=== PATIENT | female | born 1945 | race Caucasian/White ===

== ENCOUNTER 2018-07-30 18:26 | Inpatient (IN) | payer MEDICARE, OTHER ==
[~2018-07-30] VITALS: Ht 172.7 cm; Wt 135.3 kg
--- NOTE | 2018-07-30 19:19 | EKG ---
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
[2018-07-30 19:26] LABS: BASO # 0.1 x10^3/uL (0.0-0.2); BASO % 1 % (0-3); EOS # 0.3 x10^3/uL (0.0-0.7); EOS % 2 % (0-3); HEMATOCRIT 45.6 % (36.0-47.0); HEMOGLOBIN 14.9 g/dL (12.0-15.5); LYMPH # 1.8 x10^3/uL (1.0-4.8); LYMPH % 12 % (24-48); MEAN CORPUSCULAR HEMOGLOBIN 29 pg (25-35); MEAN CORPUSCULAR HGB CONC 33 g/dL (31-37); MEAN CORPUSCULAR VOLUME 90 fL (79-100); MONO # 0.9 x10^3/uL (0.0-1.1); MONO % 6 % (0-9); NEUT # 11.5 x10^3uL (1.8-7.7); NEUT % 78 % (31-73); PLATELET COUNT 154 x10^3/uL (140-400); RED BLOOD COUNT 5.09 x10^6/uL (3.50-5.40); RED CELL DISTRIBUTION WIDTH 14.8 % (11.5-14.5); WHITE BLOOD COUNT 14.6 x10^3/uL (4.0-11.0)
[2018-07-30 19:28] LABS: BACTERIA,URINE MANY /HPF (0-FEW); BILIRUBIN,URINE NEG (NEG); CLARITY,URINE CLOUDY; COLOR,URINE AMBER; GLUCOSE,URINE NEG (NEG); NITRITE,URINE POS (NEG); SQUAMOUS EPITHELIAL CELL,UR MANY /LPF; UROBILINOGEN,URINE 0.2 mg/dL (0.2 mg/dL); WBC,URINE TNTC /HPF (0-4)
[2018-07-30 19:42] LABS: ALBUMIN 3.2 g/dL (3.4-5.0); ALBUMIN/GLOBULIN RATIO 0.8 (1.0-1.7); CALCIUM 9.4 mg/dL (8.5-10.1); CREATININE 1.4 mg/dL (0.6-1.0); GFR 36.8; MAGNESIUM 1.9 mg/dL (1.8-2.4); POTASSIUM 4.7 mmol/L (3.5-5.1); TOTAL BILIRUBIN 0.4 mg/dL (0.2-1.0); TOTAL PROTEIN 7.2 g/dL (6.4-8.2)
[2018-07-30] MEDS ORDERED: DOXYCYCLINE HYCLATE 100 MG TABLET PO ONE (20:15)
--- NOTE | 2018-07-30 20:45 | NUR ---
Admission Note with Justification for Admission to [facility] Patient admitted to [facility] for protective oversight for emergency stabilization of acute psychiatric crisis. Pt admitted from: Hospital ER Mode of arrival: EMS Accompanied By: Family Precipitating behaviors that initiated intake and admission: Sexualized behaviors-grabbing peoples butts, refusing cares, racial slurs toward residents and staff, smearing and throwing BM, yelling Description of failure of out patient attempts at stabilization in previous setting list behavior and medication trials: reorientation, PRN Ativan now D/C'd, Antibiotics, Behaviors and assessment findings upon admission: Calm, cooperative, appropriate Plan: Admit for protective oversight for adjustment and stabilization of medications, behaviors and mood. Intense treatment regimen including groups, medication adjustments, therapy, consistent regimen for ADL's, self care, and sleep hygiene. Daily monitoring by Inpatient staff, Psychiatry, and Medical Physician.
[2018-07-30] MEDS ORDERED: CHOL10003 PO (21:09)
[2018-07-30] MEDS ORDERED: INSU100I27 SQ ×2 (21:09)
[2018-07-30] MEDS ORDERED: LOSA25TA PO (21:09)
[2018-07-30] MEDS ORDERED: ACET325T9 PO (21:09)
[2018-07-30] MEDS ORDERED: CRAN400C PO (21:09)
[2018-07-30] MEDS ORDERED: IBUP400T18 PO (21:09)
[2018-07-30] MEDS ORDERED: MAG360OR24 PO (21:09)
[2018-07-30] MEDS ORDERED: DEXT118L3 PO (21:09)
[2018-07-30] MEDS ORDERED: LEVO50TA5 PO (21:09)
[2018-07-30] MEDS ORDERED: GABA-585 PO (21:09)
[2018-07-30] MEDS ORDERED: INSU100I17 SQ (21:09)
[2018-07-30] MEDS ORDERED: CITA40TA12 PO (21:09)
[2018-07-30] MEDS ORDERED: LACT1TAB18 PO (21:09)
[2018-07-30] MEDS ORDERED: DIPH25CA58 PO (21:09)
[2018-07-30] MEDS ORDERED: ATOR40TA PO (21:09)
[2018-07-30 21:25] VITALS: BP 125/75
[2018-07-30] MEDS ORDERED: MAG HYDROX/AL HYDROX/SIMETH 30 ML ORAL.SUSP PO PRN (22:00)
[2018-07-30] MEDS ORDERED: MAGNESIUM HYDROXIDE 2,400 MG/30 ML ORAL.SUSP. PO PRN (22:00)
[2018-07-31] MEDS ORDERED: IBUPROFEN 400 MG TABLET. PO PRN (01:30)
[2018-07-31] MEDS ORDERED: ACETAMINOPHEN 325 MG TABLET PO PRN (01:30)
[2018-07-31] MEDS ORDERED: MAG HYDROX/AL HYDROX/SIMETH 30 ML ORAL.SUSP PO PRN (01:30)
[2018-07-31] MEDS ORDERED: diphenhydrAMINE HCL 25 MG CAPSULE PO PRN (01:30)
--- NOTE | 2018-07-31 04:15 | ED.ADGEN ---
Past History Past Medical History: CVA, Diabetes, Hypothyroid, UTI, Other Past Surgical History: Hysterectomy, Other Alcohol Use: None Drug Use: None Adult General Chief Complaint Chief Complaint Encounter for medical screening exam HPI HPI Patient is a 73-year-old female [facility] patient with history of recurrent urinary tract infections prevents for a medical screening exam for psychiatric admission. Apparently, the patient at the [place] [facility] had bizarre and inappropriate behavior towards staff members and gas. Currently alert and oriented to person place and cooperative exams. Denies any medical complaint or issues at this time. No chest pain shortness of breath, abdominal pain. No fever chills, nausea vomiting or sweats. No headache, dizziness lightheadedness. No urinary frequency urgency or dysuria.] Review of Systems Review of Systems Review symptoms as per history of present illness. All other review symptoms are negative. All other systems were reviewed and found to be within normal limits, except as documented in this note. Current Medications Current Medications Current Medications Medications (Trade) Dose Ordered Sig/Eileen Start Time Stop Time Status Last Admin Dose Admin Acetaminophen (Tylenol) 325 mg PRN Q4HRS PRN 07/31/18 01:30 UNV Al Hydroxide/Mg Hydroxide (Mylanta Plus Xs) 15 ml PRN AFTMEALHC PRN 07/30/18 22:00 Diphenhydramine HCl (Benadryl) 25 mg PRN TID PRN 07/31/18 01:30 UNV Doxycycline Hyclate (Vibra-Tab) 100 mg 1X ONCE 07/30/18 20:15 07/30/18 20:16 DC 07/30/18 20:15 100 MG Gabapentin (Neurontin) 100 mg TID 07/31/18 09:00 UNV Ibuprofen (Motrin) 400 mg PRN Q4HRS PRN 07/31/18 01:30 UNV Influenza Virus Vaccine (Afluria Trivalent [id number] Syringe) 0.5 ml ONCE ONCE 07/31/18 09:00 07/31/18 09:01 Losartan Potassium (Cozaar) 25 mg DAILY 07/31/18 09:00 UNV Magnesium Hydroxide (Milk Of Magnesia) 2,400 mg PRN QHS PRN 07/30/18 22:00 Non-Formulary Medication (Atorvastatin Calcium (Lipitor)) 40 mg DAILY 07/31/18 09:00 UNV Non-Formulary Medication (Citalopram Hydrobromide (Celexa)) 40 mg DAILY 07/31/18 09:00 UNV Non-Formulary Medication (Cranberry ) 400 mg TID 07/31/18 09:00 UNV Non-Formulary Medication (Dextromethorphan Hbr/Chlor-Mal (Robitussin Long-Acting Liq)) 15 ml PRN Q6HRS 07/31/18 01:30 UNV Non-Formulary Medication (Insulin Aspart (Novolog Flexpen)) 15 unit TIDAC 07/31/18 07:30 UNV Non-Formulary Medication (Insulin Detemir (Levemir Flextouch)) 55 unit QHS 07/31/18 21:00 UNV Non-Formulary Medication (Lactobacillus Acidophilus (Acidophilus)) 1 each QID 07/31/18 09:00 UNV Non-Formulary Medication (Levothyroxine Sodium ) 50 mcg DAILYAC 07/31/18 07:30 UNV Non-Formulary Medication (Mag Hydrox/Al Hydrox/Simeth (Alum-Mag Hydroxide-Simeth Liq)) 30 ml PRN Q2HR PRN 07/31/18 01:30 UNV Vitamin D (Vitamin D3) 1,000 unit DAILY 07/31/18 09:00 UNV Allergies Allergies Allergies Coded Allergies Type Severity Reaction Last Updated Verified Penicillins Allergy Unknown 07/30/18 Yes amoxicillin Allergy Unknown 07/30/18 Yes clarithromycin Allergy Unknown 07/30/18 Yes clavulanic acid Allergy Unknown 07/30/18 Yes erythromycin base Allergy Unknown 07/30/18 Yes ketorolac Allergy Unknown 07/30/18 Yes Physical Exam Physical Exam Constitutional: Well developed, well nourished, no acute distress, non-toxic appearance. [] HENT: Normocephalic, atraumatic, bilateral external ears normal, oropharynx moist, no oral exudates, nose normal. [] Eyes: PERRLA, EOMI, conjunctiva normal, no discharge. [] Neck: Normal range of motion, no tenderness, supple, no stridor. [] Cardiovascular:Heart rate regular rhythm, no murmur [] Lungs & Thorax: Bilateral breath sounds clear to auscultation [] Abdomen: Bowel sounds normal, soft, no tenderness, masses. [] Skin: Warm, dry, no erythema, no rash. [] Back: No tenderness, no CVA tenderness. [] Extremities: No tenderness, no cyanosis, no clubbing, ROM intact, no edema. [] Neurologic: Alert and oriented X 2, normal motor function, normal sensory function, no focal deficits noted. [] Psychologic: Affect normal, judgement normal, mood normal. [] Current Patient Data Vital Signs Vital Signs Date Time Temp Pulse Resp B/P (MAP) Pulse Ox O2 Delivery O2 Flow Rate FiO2 07/30/18 21:25 98.5 76 18 125/75 (92) 96 Room Air Lab Results Laboratory Tests Test 07/30/18 19:05 White Blood Count 14.6 x10^3/uL (4.0-11.0) H Red Blood Count 5.09 x10^6/uL (3.50-5.40) Hemoglobin 14.9 g/dL (12.0-15.5) Hematocrit 45.6 % (36.0-47.0) Mean Corpuscular Volume 90 fL (79-100) Mean Corpuscular Hemoglobin 29 pg (25-35) Mean Corpuscular Hemoglobin Concent 33 g/dL (31-37) Red Cell Distribution Width 14.8 % (11.5-14.5) H Platelet Count 154 x10^3/uL (140-400) Neutrophils (%) (Auto) 78 % (31-73) H Lymphocytes (%) (Auto) 12 % (24-48) L Monocytes (%) (Auto) 6 % (0-9) Eosinophils (%) (Auto) 2 % (0-3) Basophils (%) (Auto) 1 % (0-3) Neutrophils # (Auto) 11.5 x10^3uL (1.8-7.7) H Lymphocytes # (Auto) 1.8 x10^3/uL (1.0-4.8) Monocytes # (Auto) 0.9 x10^3/uL (0.0-1.1) Eosinophils # (Auto) 0.3 x10^3/uL (0.0-0.7) Basophils # (Auto) 0.1 x10^3/uL (0.0-0.2) Urine Collection Type Unknown Urine Color Adrienne Urine Clarity Cloudy Urine pH 5.5 Urine Specific Bascom 1.020 Urine Protein Neg (NEG-TRACE) Urine Glucose (UA) Neg mg/dL (NEG) Urine Ketones (Stick) Trace mg/dL (NEG) Urine Blood Neg (NEG) Urine Nitrite Pos (NEG) Urine Bilirubin Neg (NEG) Urine Urobilinogen Dipstick 0.2 mg/dL (0.2 mg/dL) Urine Leukocyte Esterase Mod (NEG) Urine RBC 1-2 /HPF (0-2) Urine WBC Tntc /HPF (0-4) Urine Squamous Epithelial Cells Many /LPF Urine Bacteria Many /HPF (0-FEW) Sodium Level 138 mmol/L (136-145) Potassium Level 4.7 mmol/L (3.5-5.1) Chloride Level 103 mmol/L (98-107) Carbon Dioxide Level 29 mmol/L (21-32) Anion Gap 6 (6-14) Blood Urea Nitrogen 28 mg/dL (7-20) H Creatinine 1.4 mg/dL (0.6-1.0) H Estimated GFR (Cockcroft-Gault) 36.8 BUN/Creatinine Ratio 20 (6-20) Glucose Level 162 mg/dL (70-99) H Calcium Level 9.4 mg/dL (8.5-10.1) Magnesium Level 1.9 mg/dL (1.8-2.4) Total Bilirubin 0.4 mg/dL (0.2-1.0) Aspartate Amino Transferase (AST) 16 U/L (15-37) Alanine Aminotransferase (ALT) 24 U/L (14-59) Alkaline Phosphatase 63 U/L (46-116) Total Protein 7.2 g/dL (6.4-8.2) Albumin 3.2 g/dL (3.4-5.0) L Albumin/Globulin Ratio 0.8 (1.0-1.7) L EKG EKG [] Radiology/Procedures Radiology/Procedures [] Course & Med Decision Making Course & Med Decision Making Pertinent Labs and Imaging studies reviewed. (See chart for details) [Patient is medical stable for hospital admission. First dose of antibiotics to treat urinary tract infection provided in the ED.] Final Impression Final Impression [1, for medical screening exam for psychiatric admission 2. Urinary tract infection] Dragon Disclaimer Dragon Disclaimer This electronic medical record was generated, in whole or in part, using a voice recognition dictation system. ELIOT NETTLES DO Jul 31, 2018 04:15
[2018-07-31 06:46] VITALS: BP 136/93
[2018-07-31] MEDS ORDERED: guaiFENesin DM 200MG/20MG 10 ML SYRUP PO PRN (07:30)
[2018-07-31] MEDS ORDERED: INSULIN GLARGINE 300 UNITS/3 ML INSULN.PEN. SQ SCH ×2 (08:00→14:38)
[2018-07-31] MEDS ORDERED: NON FORMULARY ITEM (Cranberry 400 MG) PO SCH (09:00)
[2018-07-31] MEDS: LEVOTHYROXINE 50 MCG TABLET PO SCH (09:11)
[2018-07-31] MEDS: INSULIN LISPRO 300 UNITS/3 ML INSULN.PEN. SQ SCH ×3 (09:12→17:20)
[2018-07-31] MEDS: CITALOPRAM 20 MG TABLET. PO SCH (09:13)
[2018-07-31] MEDS: LACTOBACILLUS RHAMNOSUS GG 1 CAPSULE. PO SCH ×2 (09:14→20:29)
[2018-07-31] MEDS: CHOLECALCIFEROL (VITAMIN D3) 1,000 UNIT TABLET PO SCH (09:14)
[2018-07-31] MEDS: GABAPENTIN 100 MG CAPSULE. PO SCH ×3 (09:14→20:30)
[2018-07-31] MEDS: LOSARTAN 25 MG TABLET. PO SCH (09:14)
[2018-07-31 13:12] LABS: THYROXINE 7.6 ug/dL (4.5-12.0)
[2018-07-31 16:10] VITALS: BP 140/85
--- NOTE | 2018-07-31 18:06 | NUR ---
Assumed care of pt @ approximately 0700. Pt was sitting up in W/C in Day Room at the time of our initial encounter. Pt oriented to self, year & location this AM. Pt pleasant, cooperative, and compliant w/meds. PT came on the unit a short time later to evaluate the pt, and by the time they evaluated her, she was only oriented to self at that time. Pt c/o headache this AM - PRN Motrin administered. Upon reevaluation, she indicated that her h/a was better, but not completely resolved. She also indicated that she was confused about why she's here, and what medications she is taking. This RN wrote out a complete list of her inpatient medications, along with the reason each med had been prescribed, and provided it to the pt. She indicated that she understood the list. She thanked this RN for providing this information to her. Dr. 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 She indicated that she has had a UTI for "about 2 years" and "they just can't get rid of it." Dr. Gonzalez advised her that we will take good care of her. After his visit, the pt asked to lay down. This RN and a METAL FINISH INSPECTOR changed the pt's brief and assisted her (max assist) into bed. After laying down for a while, she was assisted up to the Dining Room, and ate 100% of her dinner. Pt currently sitting up in her W/C in the Day Room, watching TV. No needs voiced @ this time. Will continue to monitor and assist pt in working towards her treatment and discharge goals.
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
[2018-07-31] MEDS: CIPROFLOXACIN HCL 500 MG TABLET PO SCH (20:29)
[2018-07-31] MEDS: ATORVASTATIN CALCIUM 20 MG TABLET PO SCH (20:29)
[2018-07-31] MEDS: INSULIN GLARGINE 300 UNITS/3 ML INSULN.PEN. SQ SCH (20:30)
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
--- NOTE | 2018-07-31 22:51 | NUR ---
Nursing note: Assumed care of pt in day room. She was watching the movie but stated she is confused. She took some of her meds in ice cream but wouldn't finish it because it was "too gritty". She was compliant w/assessment. Alert to self only. No c/o pain, no agitation. Gave PRN Trazodone @0593.
--- NOTE | 2018-07-31 22:54 | NUR ---
Disregard prev note-wrong patient
--- NOTE | 2018-07-31 22:55 | NUR ---
Nursing note:Assumed care of pt in her room. She was in bed but awake. She was pleasant and compliant w/meds and assessment. No c/o pain or agitation.
[2018-08-01 00:07] LABS: HEMOGLOBIN A1C 9.9 % (4.8-5.6)
[2018-08-01] MEDS: LEVOTHYROXINE 50 MCG TABLET PO SCH (06:00)
[2018-08-01 06:32] VITALS: BP 145/92
[2018-08-01] MEDS: CIPROFLOXACIN HCL 500 MG TABLET PO SCH ×2 (08:04→20:09)
[2018-08-01] MEDS: CITALOPRAM 20 MG TABLET. PO SCH (08:04)
[2018-08-01] MEDS: GABAPENTIN 100 MG CAPSULE. PO SCH ×3 (08:05→20:10)
[2018-08-01] MEDS: LOSARTAN 25 MG TABLET. PO SCH (08:05)
[2018-08-01] MEDS: LACTOBACILLUS RHAMNOSUS GG 1 CAPSULE. PO SCH ×2 (08:05→20:09)
[2018-08-01] MEDS: CHOLECALCIFEROL (VITAMIN D3) 1,000 UNIT TABLET PO SCH (08:05)
[2018-08-01] MEDS: INSULIN LISPRO 300 UNITS/3 ML INSULN.PEN. SQ SCH ×3 (08:43→17:37)
[2018-08-01] MEDS: INSULIN GLARGINE 300 UNITS/3 ML INSULN.PEN. SQ SCH ×2 (08:44→20:11)
--- NOTE | 2018-08-01 12:02 | NUR ---
Pt is calm, cooperative, and compliant. No inappropriate behavior noted. No racial slurs, no yelling, no throwing or smearing BM at this time. Pt denies those behaviors. Pt has not refused cares.
[2018-08-01 16:49] VITALS: BP 128/84
[2018-08-01] MEDS: ATORVASTATIN CALCIUM 20 MG TABLET PO SCH (20:09)
--- NOTE | 2018-08-01 23:09 | NUR ---
Nursing Note Pt pleasant calm and cooperative, in bed during assessment, asleep. Awakens to voice, and takes medications. Denies complaints.
[2018-08-02 06:30] VITALS: BP 100/60
[2018-08-02] MEDS: LEVOTHYROXINE 50 MCG TABLET PO SCH (07:06)
[2018-08-02] MEDS: INSULIN GLARGINE 300 UNITS/3 ML INSULN.PEN. SQ SCH ×2 (08:43→19:59)
[2018-08-02] MEDS: INSULIN LISPRO 300 UNITS/3 ML INSULN.PEN. SQ SCH ×3 (08:43→17:17)
[2018-08-02] MEDS: CIPROFLOXACIN HCL 500 MG TABLET PO SCH ×2 (08:44→19:57)
[2018-08-02] MEDS: CHOLECALCIFEROL (VITAMIN D3) 1,000 UNIT TABLET PO SCH (08:44)
[2018-08-02] MEDS: CITALOPRAM 20 MG TABLET. PO SCH (08:44)
[2018-08-02] MEDS: GABAPENTIN 100 MG CAPSULE. PO SCH ×3 (08:44→19:57)
[2018-08-02] MEDS: LACTOBACILLUS RHAMNOSUS GG 1 CAPSULE. PO SCH ×2 (08:44→19:56)
[2018-08-02] MEDS: LOSARTAN 25 MG TABLET. PO SCH (09:00)
--- NOTE | 2018-08-02 12:07 | NUR ---
Pt is cooperative with assessment and medication. She is cooperative, compliant, and calm. No hallucinations, delusions, agitation or aggression.
--- NOTE | 2018-08-02 13:20 | NUR ---
1020- Attempted to meet and complete Activity Therapy Assessment; However, Pt. was sleeping in the hallway and did not respond to therapist prompts. 1320- Attempted to meet and complete Activity Therapy Assessment; However, Pt.w as asleep in her room
[2018-08-02 16:37] VITALS: BP 134/74
[2018-08-02] MEDS: ATORVASTATIN CALCIUM 20 MG TABLET PO SCH (19:57)
--- NOTE | 2018-08-02 23:31 | NUR ---
Nursing Note Pt social up in day room, compliant with meds and assessment.
[2018-08-03] MEDS: LEVOTHYROXINE 50 MCG TABLET PO SCH (04:28)
[2018-08-03 05:48] VITALS: BP 112/62
[2018-08-03] MEDS: INSULIN LISPRO 300 UNITS/3 ML INSULN.PEN. SQ SCH ×3 (07:30→17:10)
[2018-08-03] MEDS: INSULIN GLARGINE 300 UNITS/3 ML INSULN.PEN. SQ SCH ×2 (09:16→19:34)
[2018-08-03] MEDS: CIPROFLOXACIN HCL 500 MG TABLET PO SCH ×2 (09:16→19:34)
[2018-08-03] MEDS: CITALOPRAM 20 MG TABLET. PO SCH (09:16)
[2018-08-03] MEDS: GABAPENTIN 100 MG CAPSULE. PO SCH ×3 (09:17→19:33)
[2018-08-03] MEDS: CHOLECALCIFEROL (VITAMIN D3) 1,000 UNIT TABLET PO SCH (09:17)
[2018-08-03] MEDS: LOSARTAN 25 MG TABLET. PO SCH (09:17)
[2018-08-03] MEDS: LACTOBACILLUS RHAMNOSUS GG 1 CAPSULE. PO SCH ×2 (09:17→19:33)
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
--- NOTE | 2018-08-03 10:51 | PDOC ---
Exam Note: Francisco Note: Please also refer to the separate dictated note~for this date of service dictated separately.~Patient seen individually. Discussed the patient with Nursing staff reviewed the chart.~Reviewed interim history and current functioning. Reviewed vital signs,~Labs/ Radiology~and current medications noted below. Continue current treatment with the changes noted in the dictated addendum note. This is a late entry for 08/02/2018 Assessment: Vital Signs: VS - Last 72 Hours, by Label Date Time Temp Pulse Resp B/P (MAP) Pulse Ox O2 Delivery O2 Flow Rate FiO2 08/03/18 09:17 68 112/62 08/03/18 05:48 97.9 68 20 112/62 (79) 94 08/02/18 16:37 97.4 65 19 134/74 (94) 97 Room Air 08/02/18 06:30 98.6 60 24 100/60 (73) 93 Room Air 08/01/18 16:49 97.2 84 20 128/84 (99) 97 08/01/18 08:05 63 145/92 08/01/18 06:32 97.3 63 16 145/92 (109) 92 Room Air 07/31/18 16:10 97.0 66 16 140/85 (103) 91 Room Air Vital Signs Date Time Temp Pulse Resp B/P (MAP) Pulse Ox O2 Delivery O2 Flow Rate FiO2 08/03/18 09:17 68 112/62 08/03/18 05:48 97.9 20 94 08/02/18 16:37 Room Air I&O Intake and Output 08/03/18 07:00 Intake Total 1800 ml Balance 1800 ml Intake Oral 1800 ml Labs: Laboratory Tests Test 08/02/18 11:51 08/02/18 17:00 08/02/18 19:26 Glucose (Fingerstick) 222 mg/dL (70-99) H 127 mg/dL (70-99) H 189 mg/dL (70-99) H Current Medications: Meds: Current Medications Doxycycline Hyclate (Vibra-Tab) 100 mg 1X ONCE PO Last administered on at 20:15; Start 07/30/18 at 20:15; Stop 07/30/18 at 20:16; Status DC Acetaminophen (Tylenol) 650 mg PRN Q6HRS PRN PO PAIN / TEMP; Start 07/30/18 at 22:00 Al Hydroxide/Mg Hydroxide (Mylanta Plus Xs) 15 ml PRN AFTMEALHC PRN PO DYSPEPSIA; Start 07/30/18 at 22:00; Status Cancel Magnesium Hydroxide (Milk Of Magnesia) 2,400 mg PRN QHS PRN PO CONSTIPATION; Start 07/30/18 at 22:00 Influenza Virus Vaccine (Adataouria Trivalent Syringe) 0.5 ml ONCE ONCE VAX IM ; Start 07/30/18 at 22:30; Stop 07/30/18 at 22:41; Status DC Influenza Virus Vaccine (Adataouria Trivalent Syringe) 0.5 ml ONCE ONCE VAX IM ; Start 07/31/18 at 09:00; Stop 07/31/18 at 09:01; Status DC Citalopram Hydrobromide (CeleXA) 40 mg DAILY PO Last administered on at 09:16; Start 07/31/18 at 09:00 Acetaminophen (Tylenol) 325 mg PRN Q4HRS PRN PO PAIN; Start 07/31/18 at 01:30 Vitamin D (Vitamin D3) 1,000 unit DAILY PO Last administered on 08/03/18at 09: 17; Start 07/31/18 at 09:00 Diphenhydramine HCl (Benadryl) 25 mg PRN TID PRN PO ALLERGIES; Start 07/31/18 at 01:30 Gabapentin (Neurontin) 100 mg TID PO Last administered on 08/03/18at 09:17; Start 07/31/18 at 09:00 Ibuprofen (Motrin) 400 mg PRN Q4HRS PRN PO PAIN Last administered on at 09:26; Start 07/31/18 at 01:30; Stop 07/31/18 at 16:11; Status DC Losartan Potassium (Cozaar) 25 mg DAILY PO Last administered on 08/03/18at 09: 17; Start 07/31/18 at 09:00 Atorvastatin Calcium (Lipitor) 40 mg HS PO Last administered on 08/02/18at 19: 57; Start 07/31/18 at 21:00 Non-Formulary Medication (Cranberry ) 400 mg TID PO ; Start 07/31/18 at 09:00; Status UNV Guaifenesin (Robitussin Dm) 15 ml PRN Q6HRS PRN PO COUGH; Start 07/31/18 at 07 :30 Insulin Human Lispro (HumaLOG) 15 units TIDAC SQ Last administered on at 11:30; Start 07/31/18 at 07:30; Stop 07/31/18 at 16:13; Status DC Insulin Glargine (Lantus) 10 units DAILY08 SQ Last administered on 07/31/18at 09:13; Start 07/31/18 at 08:00; Stop 07/31/18 at 14:38; Status DC Insulin Glargine (Lantus) 55 units QHS SQ Last administered on 08/02/18at 19:59 ; Start 07/31/18 at 21:00 Lactobacillus Rhamnosus (Culturelle) 1 cap BID PO Last administered on at 09:17; Start 07/31/18 at 09:00 Levothyroxine Sodium (Synthroid) 50 mcg DAILY07 PO Last administered on at 04:28; Start 07/31/18 at 07:00 Al Hydroxide/Mg Hydroxide (Mylanta Plus Xs) 30 ml PRN Q2HR PRN PO HEARTBURN / GAS; Start 07/31/18 at 01:30 Insulin Glargine (Lantus) 10 units DAILY08 SQ ; Start 07/31/18 at 14:38; Stop 07/31/18 at 16:13; Status DC Ciprofloxacin (Cipro) 500 mg BID PO Last administered on 08/03/18at 09:16; Start 07/31/18 at 21:00 Insulin Human Lispro (HumaLOG) 20 units TIDAC SQ Last administered on at 17:17; Start 07/31/18 at 16:30 Insulin Glargine (Lantus) 25 units DAILY08 SQ Last administered on 08/03/18at 09:16; Start 08/01/18 at 08:00 Active Scripts Active Reported Vitamin D3 (Cholecalciferol (Vitamin D3)) 1,000 Unit Tablet 1,000 Unit PO DAILY Tylenol (Acetaminophen) 325 Mg Tablet 325 Mg PO PRN Q4HRS PRN Levothyroxine Sodium 50 Mcg Tablet 50 Mcg PO DAILYAC Robitussin Long-Acting Liq (Dextromethorphan Hbr/Chlor-Mal) 118 Ml Liquid 15 Ml PO PRN Q6HRS Novolog Flexpen (Insulin Aspart) 100 Unit/1 Ml Insuln.pen 15 Unit SQ TIDAC Neurontin (Gabapentin) 100 Mg Capsule 100 Mg PO TID Alum-Mag Hydroxide-Simeth Liq (Mag Hydrox/Al Hydrox/Simeth) 360 Ml Oral.susp 30 Ml PO PRN Q2HR PRN Lipitor (Atorvastatin Calcium) 40 Mg Tablet 40 Mg PO DAILY Levemir Flextouch (Insulin Detemir) 100 Unit/1 Ml Insuln.pen 10 Unit SQ DAILY08 Levemir Flextouch (Insulin Detemir) 100 Unit/1 Ml Insuln.pen 55 Unit SQ QHS Ibuprofen 400 Mg Tablet 400 Mg PO PRN Q4HRS PRN Benadryl (Diphenhydramine Hcl) 25 Mg Capsule 25 Mg PO PRN TID PRN Cranberry 400 Mg Capsule 400 Mg PO TID Cozaar (Losartan Potassium) 25 Mg Tablet 25 Mg PO DAILY Celexa (Citalopram Hydrobromide) 40 Mg Tablet 40 Mg PO DAILY Acidophilus (Lactobacillus Acidophilus) 1 Each Tablet 1 Each PO QID I have reviewed the current psychotropics carefully including drug interactions. Risk benefit ratio favors no change other than as noted in my dictated progress note. Diagnosis: Problems: (1) Psychosis, atypical (2) Impulse control disorder (3) Mild cognitive impairment (4) Anxiety disorder ANGEL MYLES MD Aug 03, 2018 10:51
--- NOTE | 2018-08-03 14:00 | NUR ---
Psychosocial Assessment Admit Date: 07/30/18 Psychiatrist: None Medical Physician: Dr. Villeda Assessment Informants: Pt was not cooperative during assessment Sex of Patient: Female Race: Age: 73 Living Situation: lives at [facility] Plans For Return: will return once stable Legal status: DPOA Name of Legally Responsible Person: son, Himanshu Moore Contacts: Name: Himanshu Moore Family Background and Relationships Marital status: single, "I haven't had successful relationships". Marital (Cohabitation)/Sexual Orientation Issues: heterosexual Family support And their Participation in therapy: Pt son is active and helps in completion of decisions/finances. 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 History of Legal Difficulties: None Preferred Leisure Activities: "nothing" Spiritual/Uatsdin Involvement: unknown Service: none Financial Situation: "I don't know Resources: Medicare and Medicaid Financial Problems/Needs: N/A Republican Responsible for Handling Patient's Finances: Pt son Historical Data Childhood History: "it was fine" Cultural/Spiritual History Factors that may impact treatment: None History of Sexual/Physical Abuse of Neglect: No per patient History of Substance Abuse: None in the last 12 months Psychiatric History: "No" per pt Presenting Problems Presenting Problems/Criteria for admission: aggressive bx, throwing/smearing feces, saying racial slurs Patient's Current Intrinsic Strengths: vocal, support from son, positive education and work hx Patient's Current Intrinsic Weaknesses: needs physical assistance, poor physical health hx (e.g. 3 CVA's) Social Work Treatment Plan Identified Problems 1.) potential UTI 2.) aggressive behaviors 3.) poor physical health Goals for Treatment: medication and behavior modification Family Goals for Treatment: behavior modification Social work Intervention: Group therapy per week:2-5x To increase positive, calm feelings. To Increase Socialization. To Teach and Practice Effective coping skills in a social setting. Individual Therapy Per Week: As needed. Using validation to increase calm and positive feelings. To encourage self-expression. To work on grief/loss and adjustment issues. To teach and practice effective coping skills. To educate about diagnoses, team recommendations etc.. Family Support and Education: As needed. Support family grief/adjustment process. Educate about Psychiatric/Behavioral problems and treatment recommendations. Patient's Educational Needs to be addressed in Treatment: Diagnosis, Treatment plan, Medication and Discharge Planning. Initial Discharge Plan: Pt will have treatment team on to discuss behaviors, medications and ELOS Plan for communication of Psychiatric Follow up and Continuing Care Instructions to family and Care Givers: Written and verbal communication.
--- NOTE | 2018-08-03 14:31 | NUR ---
Assumed care of pt @ approx 0700. Pt was sitting up in the Dining Room for breakfast @ the time of our initial encounter. Pt oriented to self, month and location. Very pleasant and cooperative, compliant w/meds taken whole. Denies pain. Pt is currently sitting up in the Day Room with the other pts watching TV and occasionally looking out the window. She commented on how beautiful it looks outside, and she wishes she could go sit in the sunshine. No signs of hallucinations, delusions, or paranoia noted. No needs voiced @ this time. Will continue to monitor and assist pt in working towards her treatment and discharge goals.
[2018-08-03 16:14] VITALS: BP 114/74
[2018-08-03] MEDS: ATORVASTATIN CALCIUM 20 MG TABLET PO SCH (19:33)
[2018-08-03] MEDS: NYSTATIN TOPICAL POWDER 15GM BOTTLE. TP SCH (19:36)
--- NOTE | 2018-08-04 02:26 | NUR ---
Behavior Intervention Response and Plan: BIRP Note: Behavior: Assumed Care of patient, patient located in Day Room at shift change. Patient exhibited the following behavior Calm, Interactive, Able to Focus on Task. Brief assessment on rounds of vital signs, medication needs, lab studies, and pain. Treatment plan problems . Intervention: Patient assessed and the following interventions initiated safety checks 15 Minute Checks Head to toe Assessment , Cognitive Assessment , Head to toe Assessment. Response: After interactions and interventions patient responded in the following manner, Cooperative , Compliant ,Drowsy. Continue to assess behaviors and condition will continue to monitor throughout the shift as needed. Patient educated on ADL's, and hand hygiene. 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 Continue to assess patient for changes in above assessment. Monitor for medication needs, pain, and safety concerns. Hourly rounding performed to ensure safe environment.
[2018-08-04 06:14] VITALS: BP 148/82
[2018-08-04] MEDS: LEVOTHYROXINE 50 MCG TABLET PO SCH (06:15)
[2018-08-04] MEDS: INSULIN LISPRO 300 UNITS/3 ML INSULN.PEN. SQ SCH ×3 (07:59→18:26)
[2018-08-04] MEDS: LOSARTAN 25 MG TABLET. PO SCH (07:59)
[2018-08-04] MEDS: CHOLECALCIFEROL (VITAMIN D3) 1,000 UNIT TABLET PO SCH (07:59)
[2018-08-04] MEDS: CIPROFLOXACIN HCL 500 MG TABLET PO SCH (07:59)
[2018-08-04] MEDS: LACTOBACILLUS RHAMNOSUS GG 1 CAPSULE. PO SCH ×2 (07:59→19:48)
[2018-08-04] MEDS: GABAPENTIN 100 MG CAPSULE. PO SCH ×3 (07:59→19:48)
[2018-08-04] MEDS: CITALOPRAM 20 MG TABLET. PO SCH (08:00)
[2018-08-04] MEDS: NYSTATIN TOPICAL POWDER 15GM BOTTLE. TP SCH ×2 (08:04→19:52)
[2018-08-04] MEDS: INSULIN GLARGINE 300 UNITS/3 ML INSULN.PEN. SQ SCH ×2 (08:06→19:54)
[2018-08-04] MEDS: ACETAMINOPHEN 325 MG TABLET PO PRN (08:18)
--- NOTE | 2018-08-04 08:18 | NUR ---
patient reports bilateral shoulder pain. Tylenol 650mg give per PRN order and will continue to monitor.
--- NOTE | 2018-08-04 08:50 | NUR ---
[facility] social work administrator, Polina Cuellar [phone], left message for this worker requesting update on how Anel did over the weekend. Faxed update to Polina for review. On 08/03/18 Anel expressed thankfulness for the care she has been receiving and was complimentary of [facility] staff.
--- NOTE | 2018-08-04 09:53 | PN ---
DATE: 08/02/2018 This is a late entry of 08/02/2018, covers elements not covered in my initial note. Reviewed in detailed history from a psychiatric standpoint by Dr. Bauer, who covered for me over the weekend. HISTORY OF PRESENT ILLNESS: The patient is a 73-year-old female referred from [facility] by Dr. Villeda, her primary care physician on account of inappropriate sexualized behavior, grabbing people's parts, refusing cares, using racial slurs at residents and staff, yelling, smearing and throwing bowel movements around, scratching and hitting staff. She had failed outpatient psychiatric interventions. She does have UTI, and I will defer this to Dr. Gonzalez. REVIEW OF SYSTEMS: Ambulation impaired, in wheelchair. No CV, , pulmonary, eye, ENT system symptoms on review. MENTAL STATUS EXAM: The patient is oriented to herself and situation. She knew it was 07/2018 or 08/2018, unaware of the date, knew the President was President Stan, minimized much of the behaviors prompting admission. 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 Able to do two steps from serial 7's, no more. Able to spell world forward and backward, no errors. She believes she is here for a clinical study. Speech coherent, rapid at times. Abstraction fair, computation impaired, language function intact, attention span short. Mood and affect remain somewhat anxious, labile. LABORATORY DATA: Reviewed. IMPRESSION: Major neurocognitive disorder, vascular with delusion, behavioral disturbance; bipolar 1 disorder, mixed; anxiety disorder, unspecified. Rest diagnosis unchanged including hypothyroidism, status post cerebrovascular accident, urinary tract infection, hyperlipidemia, type 2 diabetes mellitus. PLAN: From a psychiatric standpoint, treat the UTI, continue current psychotropics noted in my initial note. Make further adjustments as clinically indicated. From a psychiatric standpoint, the patient is on Celexa 40 mg a day. She has been started on Cipro for UTI. We may use low dose Seroquel as an atypical antipsychotic mood stabilizer. We will make this decision in the next day or so depending on how she responds to with resolution of UTI. ANGEL MYLES MD DR: ARIANA/manjit JOB#: [id number] / [id number]
[2018-08-04 16:16] VITALS: BP 110/60
[2018-08-04] MEDS: ATORVASTATIN CALCIUM 20 MG TABLET PO SCH (19:48)
[2018-08-04] MEDS: CEFPODOXIME PROXETIL 100 MG TABLET PO SCH (19:52)
--- NOTE | 2018-08-04 21:26 | NUR ---
Behavior Intervention Response and Plan: BIRP Note: Behavior: Assumed Care of patient, patient located in Patient Room at shift change. Patient exhibited the following behavior Disorganized, Calm, Compliant. Brief assessment on rounds of vital signs, medication needs, lab studies, and pain. Treatment plan problems . Intervention: Patient assessed and the following interventions initiated safety checks 15 Minute Checks Cognitive Assessment , Head to toe Assessment , Medications. Response: After interactions and interventions patient responded in the following manner, Disorganized , Calm ,Compliant. Continue to assess behaviors and condition will continue to monitor throughout the shift as needed. Patient educated on ADL's, and hand hygiene. 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 Continue to assess patient for changes in above assessment. Monitor for medication needs, pain, and safety concerns. Hourly rounding performed to ensure safe environment.
--- NOTE | 2018-08-04 21:30 | PDOC ---
Exam Note: Francisco Note: Late entry for DOS 08/03/2018. Please also refer to the separate dictated note~ for this date of service dictated separately.~Patient seen individually. Discussed the patient with Nursing staff reviewed the chart.~Reviewed interim history and current functioning. Reviewed vital signs,~Labs/ Radiology~and current medications noted below. Continue current treatment with the changes noted in the dictated addendum note Assessment: Vital Signs: VS - Last 72 Hours, by Label Date Time Temp Pulse Resp B/P (MAP) Pulse Ox O2 Delivery O2 Flow Rate FiO2 08/04/18 16:16 97.2 60 16 110/60 (77) 92 08/04/18 07:59 67 148/82 08/04/18 06:14 96.7 67 20 148/82 (104) 95 08/03/18 16:14 98.4 73 20 114/74 (87) 93 Room Air 08/03/18 09:17 68 112/62 08/03/18 05:48 97.9 68 20 112/62 (79) 94 08/02/18 16:37 97.4 65 19 134/74 (94) 97 Room Air 08/02/18 06:30 98.6 60 24 100/60 (73) 93 Room Air Vital Signs Date Time Temp Pulse Resp B/P (MAP) Pulse Ox O2 Delivery O2 Flow Rate FiO2 08/04/18 16:16 97.2 60 16 110/60 (77) 92 08/03/18 16:14 Room Air I&O Intake and Output 08/04/18 07:00 Intake Total 720 ml Balance 720 ml Intake Oral 720 ml Labs: Laboratory Tests Test 08/04/18 07:43 08/04/18 12:04 08/04/18 16:48 08/04/18 19:37 Glucose (Fingerstick) 224 mg/dL (70-99) H 185 mg/dL (70-99) H 144 mg/dL (70-99) H 157 mg/dL (70-99) H Current Medications: Meds: Current Medications Doxycycline Hyclate (Vibra-Tab) 100 mg 1X ONCE PO Last administered on at 20:15; Start 07/30/18 at 20:15; Stop 07/30/18 at 20:16; Status DC Acetaminophen (Tylenol) 650 mg PRN Q6HRS PRN PO PAIN / TEMP Last administered on 08/04/18 08:18; Start 07/30/18 at 22:00 Al Hydroxide/Mg Hydroxide (Mylanta Plus Xs) 15 ml PRN AFTMEALHC PRN PO DYSPEPSIA; Start 07/30/18 at 22:00; Status Cancel Magnesium Hydroxide (Milk Of Magnesia) 2,400 mg PRN QHS PRN PO CONSTIPATION; Start 07/30/18 at 22:00 Influenza Virus Vaccine (Afluria Trivalent Syringe) 0.5 ml ONCE ONCE VAX IM ; Start 07/30/18 at 22:30; Stop 07/30/18 at 22:41; Status DC Influenza Virus Vaccine (Wealth Accessuria Trivalent Syringe) 0.5 ml ONCE ONCE VAX IM ; Start 07/31/18 at 09:00; Stop 07/31/18 at 09:01; Status DC Citalopram Hydrobromide (CeleXA) 40 mg DAILY PO Last administered on 08:00; Start 07/31/18 at 09:00; Stop 08/04/18 at 16:58; Status DC Acetaminophen (Tylenol) 325 mg PRN Q4HRS PRN PO PAIN; Start 07/31/18 at 01:30 Vitamin D (Vitamin D3) 1,000 unit DAILY PO Last administered on 08/04/18at 07: 59; Start 07/31/18 at 09:00 Diphenhydramine HCl (Benadryl) 25 mg PRN TID PRN PO ALLERGIES; Start 07/31/18 at 01:30 Gabapentin (Neurontin) 100 mg TID PO Last administered on 08/04/18at 19:48; Start 07/31/18 at 09:00 Ibuprofen (Motrin) 400 mg PRN Q4HRS PRN PO PAIN Last administered on 09:26; Start 07/31/18 at 01:30; Stop 07/31/18 at 16:11; Status DC Losartan Potassium (Cozaar) 25 mg DAILY PO Last administered on 08/04/18 07: 59; Start 07/31/18 at 09:00 Atorvastatin Calcium (Lipitor) 40 mg HS PO Last administered on 08/04/18at 19: 48; Start 07/31/18 at 21:00 Non-Formulary Medication (Cranberry ) 400 mg TID PO ; Start 07/31/18 at 09:00; Status UNV Guaifenesin (Robitussin Dm) 15 ml PRN Q6HRS PRN PO COUGH; Start 07/31/18 at 07 :30 Insulin Human Lispro (HumaLOG) 15 units TIDAC SQ Last administered on at 11:30; Start 07/31/18 at 07:30; Stop 07/31/18 at 16:13; Status DC Insulin Glargine (Lantus) 10 units DAILY08 SQ Last administered on 07/31/18at 09:13; Start 07/31/18 at 08:00; Stop 07/31/18 at 14:38; Status DC Insulin Glargine (Lantus) 55 units QHS SQ Last administered on 08/04/18at 19:54 ; Start 07/31/18 at 21:00 Lactobacillus Rhamnosus (Culturelle) 1 cap BID PO Last administered on at 19:48; Start 07/31/18 at 09:00 Levothyroxine Sodium (Synthroid) 50 mcg DAILY07 PO Last administered on at 06:15; Start 07/31/18 at 07:00; Stop 08/04/18 at 14:17; Status DC Al Hydroxide/Mg Hydroxide (Mylanta Plus Xs) 30 ml PRN Q2HR PRN PO HEARTBURN / GAS; Start 07/31/18 at 01:30 Insulin Glargine (Lantus) 10 units DAILY08 SQ ; Start 07/31/18 at 14:38; Stop 07/31/18 at 16:13; Status DC Ciprofloxacin (Cipro) 500 mg BID PO Last administered on 08/04/18at 07:59; Start 07/31/18 at 21:00; Stop 08/04/18 at 16:07; Status DC Insulin Human Lispro (HumaLOG) 20 units TIDAC SQ Last administered on at 12:38; Start 07/31/18 at 16:30; Stop 08/04/18 at 13:35; Status DC Insulin Glargine (Lantus) 25 units DAILY08 SQ Last administered on 08/04/18at 08:06; Start 08/01/18 at 08:00 Nystatin (Nystop) 1 dori BID TP Last administered on 08/04/18at 19:52; Start at 21:00; Stop 08/13/18 at 20:59 Insulin Human Lispro (HumaLOG) 20 units TIDWMEALS SQ ; Start 08/04/18 at 17:00 Levothyroxine Sodium (Synthroid) 50 mcg DAILY06 PO ; Start 08/05/18 at 06:00 Cefpodoxime Proxetil (Vantin) 100 mg BID PO Last administered on 08/04/18at 19: 52; Start 08/04/18 at 21:00; Stop 08/14/18 at 20:59 Sertraline HCl (Zoloft) 50 mg DAILY PO ; Start 08/05/18 at 09:00 Active Scripts Active Reported Vitamin D3 (Cholecalciferol (Vitamin D3)) 1,000 Unit Tablet 1,000 Unit PO DAILY Tylenol (Acetaminophen) 325 Mg Tablet 325 Mg PO PRN Q4HRS PRN Levothyroxine Sodium 50 Mcg Tablet 50 Mcg PO DAILYAC Robitussin Long-Acting Liq (Dextromethorphan Hbr/Chlor-Mal) 118 Ml Liquid 15 Ml PO PRN Q6HRS Novolog Flexpen (Insulin Aspart) 100 Unit/1 Ml Insuln.pen 15 Unit SQ TIDAC Neurontin (Gabapentin) 100 Mg Capsule 100 Mg PO TID Alum-Mag Hydroxide-Simeth Liq (Mag Hydrox/Al Hydrox/Simeth) 360 Ml Oral.susp 30 Ml PO PRN Q2HR PRN Lipitor (Atorvastatin Calcium) 40 Mg Tablet 40 Mg PO DAILY Levemir Flextouch (Insulin Detemir) 100 Unit/1 Ml Insuln.pen 10 Unit SQ DAILY08 Levemir Flextouch (Insulin Detemir) 100 Unit/1 Ml Insuln.pen 55 Unit SQ QHS Ibuprofen 400 Mg Tablet 400 Mg PO PRN Q4HRS PRN Benadryl (Diphenhydramine Hcl) 25 Mg Capsule 25 Mg PO PRN TID PRN Cranberry 400 Mg Capsule 400 Mg PO TID Cozaar (Losartan Potassium) 25 Mg Tablet 25 Mg PO DAILY Celexa (Citalopram Hydrobromide) 40 Mg Tablet 40 Mg PO DAILY Acidophilus (Lactobacillus Acidophilus) 1 Each Tablet 1 Each PO QID I have reviewed the current psychotropics carefully including drug interactions. Risk benefit ratio favors no change other than as noted in my dictated progress note. Diagnosis: Problems: (1) Anxiety disorder (2) Mild cognitive impairment (3) Impulse control disorder (4) Psychosis, atypical ANGEL MYLES MD Aug 04, 2018 21:30
--- NOTE | 2018-08-04 23:45 | PDOC ---
Exam Note: Francisco Note: Please also refer to the separate dictated note~for this date of service dictated separately.~Patient seen individually. Discussed the patient with Nursing staff reviewed the chart.~Reviewed interim history and current functioning. Reviewed vital signs,~Labs/ Radiology~and current medications noted below. Continue current treatment with the changes noted in the dictated addendum note Assessment: Vital Signs: Vital Signs Date Time Temp Pulse Resp B/P (MAP) Pulse Ox O2 Delivery O2 Flow Rate FiO2 08/04/18 16:16 97.2 60 16 110/60 (77) 92 08/03/18 16:14 Room Air I&O Intake and Output 08/04/18 07:00 Intake Total 720 ml Balance 720 ml Intake Oral 720 ml Labs: Laboratory Tests Test 08/04/18 07:43 08/04/18 12:04 08/04/18 16:48 08/04/18 19:37 Glucose (Fingerstick) 224 mg/dL (70-99) H 185 mg/dL (70-99) H 144 mg/dL (70-99) H 157 mg/dL (70-99) H Current Medications: Meds: Current Medications Doxycycline Hyclate (Vibra-Tab) 100 mg 1X ONCE PO Last administered on at 20:15; Start 07/30/18 at 20:15; Stop 07/30/18 at 20:16; Status DC Acetaminophen (Tylenol) 650 mg PRN Q6HRS PRN PO PAIN / TEMP Last administered on 08/04/18at 08:18; Start 07/30/18 at 22:00 Al Hydroxide/Mg Hydroxide (Mylanta Plus Xs) 15 ml PRN AFTMEALHC PRN PO DYSPEPSIA; Start 07/30/18 at 22:00; Status Cancel Magnesium Hydroxide (Milk Of Magnesia) 2,400 mg PRN QHS PRN PO CONSTIPATION; Start 07/30/18 at 22:00 Influenza Virus Vaccine (Afluria Trivalent Syringe) 0.5 ml ONCE ONCE VAX IM ; Start 07/30/18 at 22:30; Stop 07/30/18 at 22:41; Status DC Influenza Virus Vaccine (Afluria Trivalent Syringe) 0.5 ml ONCE ONCE VAX IM ; Start 07/31/18 at 09:00; Stop 07/31/18 at 09:01; Status DC Citalopram Hydrobromide (CeleXA) 40 mg DAILY PO Last administered on 08:00; Start 07/31/18 at 09:00; Stop 08/04/18 at 16:58; Status DC Acetaminophen (Tylenol) 325 mg PRN Q4HRS PRN PO PAIN; Start 07/31/18 at 01:30 Vitamin D (Vitamin D3) 1,000 unit DAILY PO Last administered on 08/04/18at 07: 59; Start 07/31/18 at 09:00 Diphenhydramine HCl (Benadryl) 25 mg PRN TID PRN PO ALLERGIES; Start 07/31/18 at 01:30 Gabapentin (Neurontin) 100 mg TID PO Last administered on 08/04/18at 19:48; Start 07/31/18 at 09:00 Ibuprofen (Motrin) 400 mg PRN Q4HRS PRN PO PAIN Last administered on 09:26; Start 07/31/18 at 01:30; Stop 07/31/18 at 16:11; Status DC Losartan Potassium (Cozaar) 25 mg DAILY PO Last administered on 08/04/18 07: 59; Start 07/31/18 at 09:00 Atorvastatin Calcium (Lipitor) 40 mg HS PO Last administered on 08/04/18at 19: 48; Start 07/31/18 at 21:00 Non-Formulary Medication (Cranberry ) 400 mg TID PO ; Start 07/31/18 at 09:00; Status UNV Guaifenesin (Robitussin Dm) 15 ml PRN Q6HRS PRN PO COUGH; Start 07/31/18 at 07 :30 Insulin Human Lispro (HumaLOG) 15 units TIDAC SQ Last administered on at 11:30; Start 07/31/18 at 07:30; Stop 07/31/18 at 16:13; Status DC Insulin Glargine (Lantus) 10 units DAILY08 SQ Last administered on 07/31/18at 09:13; Start 07/31/18 at 08:00; Stop 07/31/18 at 14:38; Status DC Insulin Glargine (Lantus) 55 units QHS SQ Last administered on 08/04/18at 19:54 ; Start 07/31/18 at 21:00 Lactobacillus Rhamnosus (Culturelle) 1 cap BID PO Last administered on at 19:48; Start 07/31/18 at 09:00 Levothyroxine Sodium (Synthroid) 50 mcg DAILY07 PO Last administered on at 06:15; Start 07/31/18 at 07:00; Stop 08/04/18 at 14:17; Status DC Al Hydroxide/Mg Hydroxide (Mylanta Plus Xs) 30 ml PRN Q2HR PRN PO HEARTBURN / GAS; Start 07/31/18 at 01:30 Insulin Glargine (Lantus) 10 units DAILY08 SQ ; Start 07/31/18 at 14:38; Stop 07/31/18 at 16:13; Status DC Ciprofloxacin (Cipro) 500 mg BID PO Last administered on 08/04/18at 07:59; Start 07/31/18 at 21:00; Stop 08/04/18 at 16:07; Status DC Insulin Human Lispro (HumaLOG) 20 units TIDAC SQ Last administered on at 12:38; Start 07/31/18 at 16:30; Stop 08/04/18 at 13:35; Status DC Insulin Glargine (Lantus) 25 units DAILY08 SQ Last administered on 08/04/18at 08:06; Start 08/01/18 at 08:00 Nystatin (Nystop) 1 dori BID TP Last administered on 08/04/18at 19:52; Start at 21:00; Stop 08/13/18 at 20:59 Insulin Human Lispro (HumaLOG) 20 units TIDWMEALS SQ ; Start 08/04/18 at 17:00 Levothyroxine Sodium (Synthroid) 50 mcg DAILY06 PO ; Start 08/05/18 at 06:00 Cefpodoxime Proxetil (Vantin) 100 mg BID PO Last administered on 08/04/18at 19: 52; Start 08/04/18 at 21:00; Stop 08/14/18 at 20:59 Sertraline HCl (Zoloft) 50 mg DAILY PO ; Start 08/05/18 at 09:00 Active Scripts Active Reported Vitamin D3 (Cholecalciferol (Vitamin D3)) 1,000 Unit Tablet 1,000 Unit PO DAILY Tylenol (Acetaminophen) 325 Mg Tablet 325 Mg PO PRN Q4HRS PRN Levothyroxine Sodium 50 Mcg Tablet 50 Mcg PO DAILYAC Robitussin Long-Acting Liq (Dextromethorphan Hbr/Chlor-Mal) 118 Ml Liquid 15 Ml PO PRN Q6HRS Novolog Flexpen (Insulin Aspart) 100 Unit/1 Ml Insuln.pen 15 Unit SQ TIDAC Neurontin (Gabapentin) 100 Mg Capsule 100 Mg PO TID Alum-Mag Hydroxide-Simeth Liq (Mag Hydrox/Al Hydrox/Simeth) 360 Ml Oral.susp 30 Ml PO PRN Q2HR PRN Lipitor (Atorvastatin Calcium) 40 Mg Tablet 40 Mg PO DAILY Levemir Flextouch (Insulin Detemir) 100 Unit/1 Ml Insuln.pen 10 Unit SQ DAILY08 Levemir Flextouch (Insulin Detemir) 100 Unit/1 Ml Insuln.pen 55 Unit SQ QHS Ibuprofen 400 Mg Tablet 400 Mg PO PRN Q4HRS PRN Benadryl (Diphenhydramine Hcl) 25 Mg Capsule 25 Mg PO PRN TID PRN Cranberry 400 Mg Capsule 400 Mg PO TID Cozaar (Losartan Potassium) 25 Mg Tablet 25 Mg PO DAILY Celexa (Citalopram Hydrobromide) 40 Mg Tablet 40 Mg PO DAILY Acidophilus (Lactobacillus Acidophilus) 1 Each Tablet 1 Each PO QID I have reviewed the current psychotropics carefully including drug interactions. Risk benefit ratio favors no change other than as noted in my dictated progress note. Diagnosis: Problems: (1) Anxiety disorder (2) Mild cognitive impairment (3) Impulse control disorder (4) Psychosis, atypical ANGEL MYLES MD Aug 04, 2018 23:44
--- NOTE | 2018-08-05 03:09 | PN ---
DATE: 08/03/2018 PSYCHIATRIC PROGRESS NOTE This late entry 08/03/2018 covers elements not covered in my initial note. SUBJECTIVE: I met with the patient in the evening. The patient slept 5-3/4 hours previous night. She has been pleasant and compliant. She remains on Cipro for her UTI. No hallucinations or paranoia as noted. REVIEW OF SYSTEMS: Ambulation impaired, in wheelchair. No CV, , pulmonary, eye, ENT system symptoms on review. MENTAL STATUS EXAM: Oriented to herself, situation at times. Speech coherent, a little pressured at times. Abstraction fair, computation impaired, language function intact. Short term memory is impaired, able to do one step on serial 7's. No suicidal or homicidal ideation. LABORATORY DATA: Reviewed. IMPRESSION: Major depressive disorder, recurrent with history of psychotic features; major neurocognitive disorder, Alzheimer, vascular with delusion, depression, status post urinary tract infection. PLAN: Continue psychotropics from initial note. Treat the UTI. Adjust further as clinically indicated. MAN Viry MYLES MD DR: ARIANA/manjit JOB#: [id number] / [id number]
[2018-08-05] MEDS: LEVOTHYROXINE 50 MCG TABLET PO SCH (05:52)
--- NOTE | 2018-08-05 06:00 | NUR ---
pt rested quietly most of noc. disturbed by roommate early in [place]. pt up in am. resistive to transfer. stated she was going to fall. did not become combative.
[2018-08-05 06:28] VITALS: BP 121/84
[2018-08-05] MEDS: GABAPENTIN 100 MG CAPSULE. PO SCH ×3 (09:23→19:50)
[2018-08-05] MEDS: NYSTATIN TOPICAL POWDER 15GM BOTTLE. TP SCH ×2 (09:23→19:50)
[2018-08-05] MEDS: CHOLECALCIFEROL (VITAMIN D3) 1,000 UNIT TABLET PO SCH (09:24)
[2018-08-05] MEDS: SERTRALINE 50 MG TABLET. PO SCH (09:24)
[2018-08-05] MEDS: CEFPODOXIME PROXETIL 100 MG TABLET PO SCH ×2 (09:24→19:50)
[2018-08-05] MEDS: LACTOBACILLUS RHAMNOSUS GG 1 CAPSULE. PO SCH ×2 (09:24→19:50)
[2018-08-05] MEDS: LOSARTAN 25 MG TABLET. PO SCH (09:24)
[2018-08-05] MEDS: INSULIN LISPRO 300 UNITS/3 ML INSULN.PEN. SQ SCH ×3 (09:25→18:16)
[2018-08-05] MEDS: INSULIN GLARGINE 300 UNITS/3 ML INSULN.PEN. SQ SCH ×2 (09:27→20:16)
[2018-08-05 16:19] VITALS: BP 131/82
[2018-08-05] MEDS: ATORVASTATIN CALCIUM 20 MG TABLET PO SCH (19:50)
--- NOTE | 2018-08-05 19:54 | NUR ---
Patients son in to visit at noon visiting hours. He advised nurse that Patient is a hoarder and when he cleaned out her house he found 8 sex toys and many pornographic magazines. Passed on in report and to Dr. Astudillo. Patient has had not displayed any "sexualized behaviors" this shift. She did attempt to refuse blood insulin check at 1900 by wiping blood away on her pants after fingerstick so that [facility] could not get a sample.
[2018-08-05] MEDS: QUEtiapine 25 MG TABLET. PO SCH (20:16)
--- NOTE | 2018-08-05 23:33 | PDOC ---
Exam Note: Francisco Note: Please also refer to the separate dictated note~for this date of service dictated separately.~Patient seen individually. Discussed the patient with Nursing staff reviewed the chart.~Reviewed interim history and current functioning. Reviewed vital signs,~Labs/ Radiology~and current medications noted below. Continue current treatment with the changes noted in the dictated addendum note Assessment: Vital Signs: Vital Signs Date Time Temp Pulse Resp B/P (MAP) Pulse Ox O2 Delivery O2 Flow Rate FiO2 08/05/18 16:19 98.4 68 20 131/82 (98) 97 Room Air I&O Intake and Output 08/05/18 07:00 Intake Total 960 ml Balance 960 ml Intake Oral 960 ml Labs: Laboratory Tests Test 08/05/18 07:27 08/05/18 11:35 08/05/18 16:45 08/05/18 19:41 Glucose (Fingerstick) 168 mg/dL (70-99) H 253 mg/dL (70-99) H 171 mg/dL (70-99) H 189 mg/dL (70-99) H Current Medications: Meds: Current Medications Doxycycline Hyclate (Vibra-Tab) 100 mg 1X ONCE PO Last administered on at 20:15; Start 07/30/18 at 20:15; Stop 07/30/18 at 20:16; Status DC Acetaminophen (Tylenol) 650 mg PRN Q6HRS PRN PO PAIN / TEMP Last administered on 08/04/18at 08:18; Start 07/30/18 at 22:00 Al Hydroxide/Mg Hydroxide (Mylanta Plus Xs) 15 ml PRN AFTMEALHC PRN PO DYSPEPSIA; Start 07/30/18 at 22:00; Status Cancel Magnesium Hydroxide (Milk Of Magnesia) 2,400 mg PRN QHS PRN PO CONSTIPATION; Start 07/30/18 at 22:00 Influenza Virus Vaccine (Afluria Trivalent [id number] Syringe) 0.5 ml ONCE ONCE VAX IM ; Start 07/30/18 at 22:30; Stop 07/30/18 at 22:41; Status DC Influenza Virus Vaccine (Afluria Trivalent [id number] Syringe) 0.5 ml ONCE ONCE VAX IM ; Start 07/31/18 at 09:00; Stop 07/31/18 at 09:01; Status DC Citalopram Hydrobromide (CeleXA) 40 mg DAILY PO Last administered on 08:00; Start 07/31/18 at 09:00; Stop 08/04/18 at 16:58; Status DC Acetaminophen (Tylenol) 325 mg PRN Q4HRS PRN PO PAIN; Start 07/31/18 at 01:30 Vitamin D (Vitamin D3) 1,000 unit DAILY PO Last administered on 08/05/18at 09: 24; Start 07/31/18 at 09:00 Diphenhydramine HCl (Benadryl) 25 mg PRN TID PRN PO ALLERGIES; Start 07/31/18 at 01:30 Gabapentin (Neurontin) 100 mg TID PO Last administered on 08/05/18at 19:50; Start 07/31/18 at 09:00 Ibuprofen (Motrin) 400 mg PRN Q4HRS PRN PO PAIN Last administered on at 09:26; Start 07/31/18 at 01:30; Stop 07/31/18 at 16:11; Status DC Losartan Potassium (Cozaar) 25 mg DAILY PO Last administered on 08/05/18 09: 24; Start 07/31/18 at 09:00 Atorvastatin Calcium (Lipitor) 40 mg HS PO Last administered on 08/05/18at 19: 50; Start 07/31/18 at 21:00 Non-Formulary Medication (Cranberry ) 400 mg TID PO ; Start 07/31/18 at 09:00; Status UNV Guaifenesin (Robitussin Dm) 15 ml PRN Q6HRS PRN PO COUGH; Start 07/31/18 at 07 :30 Insulin Human Lispro (HumaLOG) 15 units TIDAC SQ Last administered on at 11:30; Start 07/31/18 at 07:30; Stop 07/31/18 at 16:13; Status DC Insulin Glargine (Lantus) 10 units DAILY08 SQ Last administered on 07/31/18at 09:13; Start 07/31/18 at 08:00; Stop 07/31/18 at 14:38; Status DC Insulin Glargine (Lantus) 55 units QHS SQ Last administered on 08/05/18at 20:16 ; Start 07/31/18 at 21:00 Lactobacillus Rhamnosus (Culturelle) 1 cap BID PO Last administered on at 19:50; Start 07/31/18 at 09:00 Levothyroxine Sodium (Synthroid) 50 mcg DAILY07 PO Last administered on at 06:15; Start 07/31/18 at 07:00; Stop 08/04/18 at 14:17; Status DC Al Hydroxide/Mg Hydroxide (Mylanta Plus Xs) 30 ml PRN Q2HR PRN PO HEARTBURN / GAS; Start 07/31/18 at 01:30 Insulin Glargine (Lantus) 10 units DAILY08 SQ ; Start 07/31/18 at 14:38; Stop 07/31/18 at 16:13; Status DC Ciprofloxacin (Cipro) 500 mg BID PO Last administered on 08/04/18at 07:59; Start 07/31/18 at 21:00; Stop 08/04/18 at 16:07; Status DC Insulin Human Lispro (HumaLOG) 20 units TIDAC SQ Last administered on at 12:38; Start 07/31/18 at 16:30; Stop 08/04/18 at 13:35; Status DC Insulin Glargine (Lantus) 25 units DAILY08 SQ Last administered on 08/05/18at 09:27; Start 08/01/18 at 08:00 Nystatin (Nystop) 1 dori BID TP Last administered on 08/05/18at 19:50; Start at 21:00; Stop 08/13/18 at 20:59 Insulin Human Lispro (HumaLOG) 20 units TIDWMEALS SQ Last administered on 08/05at 18:16; Start 08/04/18 at 17:00 Levothyroxine Sodium (Synthroid) 50 mcg DAILY06 PO Last administered on at 05:52; Start 08/05/18 at 06:00 Cefpodoxime Proxetil (Vantin) 100 mg BID PO Last administered on 08/05/18at 19: 50; Start 08/04/18 at 21:00; Stop 08/14/18 at 20:59 Sertraline HCl (Zoloft) 50 mg DAILY PO Last administered on 10/25/18at 09:24; Start 08/05/18 at 09:00 Quetiapine Fumarate (SEROquel) 25 mg QHS PO Last administered on 08/05/18at 20: 16; Start 08/05/18 at 21:00 Active Scripts Active Reported Vitamin D3 (Cholecalciferol (Vitamin D3)) 1,000 Unit Tablet 1,000 Unit PO DAILY Tylenol (Acetaminophen) 325 Mg Tablet 325 Mg PO PRN Q4HRS PRN Levothyroxine Sodium 50 Mcg Tablet 50 Mcg PO DAILYAC Robitussin Long-Acting Liq (Dextromethorphan Hbr/Chlor-Mal) 118 Ml Liquid 15 Ml PO PRN Q6HRS Novolog Flexpen (Insulin Aspart) 100 Unit/1 Ml Insuln.pen 15 Unit SQ TIDAC Neurontin (Gabapentin) 100 Mg Capsule 100 Mg PO TID Alum-Mag Hydroxide-Simeth Liq (Mag Hydrox/Al Hydrox/Simeth) 360 Ml Oral.susp 30 Ml PO PRN Q2HR PRN Lipitor (Atorvastatin Calcium) 40 Mg Tablet 40 Mg PO DAILY Levemir Flextouch (Insulin Detemir) 100 Unit/1 Ml Insuln.pen 10 Unit SQ DAILY08 Levemir Flextouch (Insulin Detemir) 100 Unit/1 Ml Insuln.pen 55 Unit SQ QHS Ibuprofen 400 Mg Tablet 400 Mg PO PRN Q4HRS PRN Benadryl (Diphenhydramine Hcl) 25 Mg Capsule 25 Mg PO PRN TID PRN Cranberry 400 Mg Capsule 400 Mg PO TID Cozaar (Losartan Potassium) 25 Mg Tablet 25 Mg PO DAILY Celexa (Citalopram Hydrobromide) 40 Mg Tablet 40 Mg PO DAILY Acidophilus (Lactobacillus Acidophilus) 1 Each Tablet 1 Each PO QID I have reviewed the current psychotropics carefully including drug interactions. Risk benefit ratio favors no change other than as noted in my dictated progress note. Diagnosis: Problems: (1) Anxiety disorder (2) Mild cognitive impairment (3) Impulse control disorder (4) Psychosis, atypical ANGEL MYLES MD Aug 05, 2018 23:33
--- NOTE | 2018-08-05 23:36 | NUR ---
Pt in room at shift change. Pt called room-mate a "stupid person" when she began yelling out. When this nurse attempted to re-direct pt, she was snarky and sarcastic, stating "do you have to listen to it all night?" Pt was educated on more effective ways to handle the situation however, pt resistant to education. Pt compliant w/medications, but acting helpless w/cares and being rude and demanding towards staff.
[2018-08-06] MEDS: LEVOTHYROXINE 50 MCG TABLET PO SCH (05:32)
[2018-08-06 05:51] VITALS: BP 112/66
[2018-08-06] MEDS: CHOLECALCIFEROL (VITAMIN D3) 1,000 UNIT TABLET PO SCH (07:54)
[2018-08-06] MEDS: CEFPODOXIME PROXETIL 100 MG TABLET PO SCH ×2 (07:54→20:52)
[2018-08-06] MEDS: GABAPENTIN 100 MG CAPSULE. PO SCH ×3 (07:54→20:52)
[2018-08-06] MEDS: LACTOBACILLUS RHAMNOSUS GG 1 CAPSULE. PO SCH ×2 (07:54→20:52)
[2018-08-06] MEDS: SERTRALINE 50 MG TABLET. PO SCH (07:54)
[2018-08-06] MEDS: LOSARTAN 25 MG TABLET. PO SCH (07:55)
[2018-08-06] MEDS: NYSTATIN TOPICAL POWDER 15GM BOTTLE. TP SCH ×2 (07:56→20:53)
[2018-08-06] MEDS: INSULIN GLARGINE 300 UNITS/3 ML INSULN.PEN. SQ SCH ×2 (07:58→20:54)
[2018-08-06] MEDS: INSULIN LISPRO 300 UNITS/3 ML INSULN.PEN. SQ SCH ×3 (07:59→17:00)
[2018-08-06 08:44] LABS: ALBUMIN 3.1 g/dL (3.4-5.0); ALBUMIN/GLOBULIN RATIO 0.9 (1.0-1.7); CALCIUM 8.8 mg/dL (8.5-10.1); CREATININE 1.2 mg/dL (0.6-1.0); GFR 43.9; MAGNESIUM 2.3 mg/dL (1.8-2.4); POTASSIUM 4.9 mmol/L (3.5-5.1); TOTAL BILIRUBIN 0.5 mg/dL (0.2-1.0); TOTAL PROTEIN 6.5 g/dL (6.4-8.2)
[2018-08-06 09:43] LABS: BASO # 0.1 x10^3/uL (0.0-0.2); BASO % 1 % (0-3); EOS # 0.3 x10^3/uL (0.0-0.7); EOS % 3 % (0-3); HEMATOCRIT 43.7 % (36.0-47.0); HEMOGLOBIN 14.4 g/dL (12.0-15.5); LYMPH # 1.4 x10^3/uL (1.0-4.8); LYMPH % 14 % (24-48); MEAN CORPUSCULAR HEMOGLOBIN 30 pg (25-35); MEAN CORPUSCULAR HGB CONC 33 g/dL (31-37); MEAN CORPUSCULAR VOLUME 90 fL (79-100); MONO # 0.6 x10^3/uL (0.0-1.1); MONO % 6 % (0-9); NEUT # 7.7 x10^3uL (1.8-7.7); NEUT % 77 % (31-73); PLATELET COUNT 151 x10^3/uL (140-400); RED BLOOD COUNT 4.87 x10^6/uL (3.50-5.40); RED CELL DISTRIBUTION WIDTH 15.1 % (11.5-14.5); WHITE BLOOD COUNT 10.1 x10^3/uL (4.0-11.0)
--- NOTE | 2018-08-06 14:05 | NUR ---
Behavior Intervention Response and Plan: BIRP Note: Behavior: Assumed Care of patient, patient located in Dining Room at shift change. Patient exhibited the following behavior Restless, Anxious, Disorganized. Brief assessment on rounds of vital signs, medication needs, lab studies, and pain. Treatment plan problems . Intervention: Patient assessed and the following interventions initiated safety checks 15 Minute Checks Cognitive Assessment , Head to toe Assessment , Medications. Response: After interactions and interventions patient responded in the following manner, Disorganized , Compliant ,calm. Continue to assess behaviors and condition will continue to monitor throughout the shift as needed. Patient educated on ADL's, and hand hygiene. Plan: Continue to monitor Master Treatment Plan for patient's progress toward short term goals of Decreased Agitation, Decreased Anxiety, shelter goals to return to previous living setting vs placement. Continue to assess patient for changes in above assessment. Monitor for medication needs, pain, and safety concerns. Hourly rounding performed to ensure safe environment.
[2018-08-06 15:54] VITALS: BP 135/60
--- NOTE | 2018-08-06 18:12 | NUR ---
pt up in wc for meals. compliant with meds and cares.
[2018-08-06] MEDS: ATORVASTATIN CALCIUM 20 MG TABLET PO SCH (20:53)
[2018-08-06] MEDS: QUEtiapine 25 MG TABLET. PO SCH (20:53)
--- NOTE | 2018-08-06 23:46 | PDOC ---
Exam Note: Francisco Note: Please also refer to the separate dictated note~for this date of service dictated separately.~Patient seen individually. Discussed the patient with Nursing staff reviewed the chart.~Reviewed interim history and current functioning. Reviewed vital signs,~Labs/ Radiology~and current medications noted below. Continue current treatment with the changes noted in the dictated addendum note Assessment: Vital Signs: Vital Signs Date Time Temp Pulse Resp B/P (MAP) Pulse Ox O2 Delivery O2 Flow Rate FiO2 08/06/18 15:54 98.4 85 20 135/60 (85) 97 Room Air I&O Intake and Output 08/06/18 07:00 Intake Total 1080 ml Balance 1080 ml Intake Oral 1080 ml # Voids 1 # Bowel Movements 2 Labs: Laboratory Tests Test 08/06/18 07:40 08/06/18 08:12 08/06/18 09:32 08/06/18 11:29 Glucose (Fingerstick) 87 mg/dL (70-99) 159 mg/dL (70-99) H Sodium Level 139 mmol/L (136-145) Potassium Level 4.9 mmol/L (3.5-5.1) Chloride Level 107 mmol/L (98-107) Carbon Dioxide Level 27 mmol/L (21-32) Anion Gap 5 (6-14) L Blood Urea Nitrogen 27 mg/dL (7-20) H Creatinine 1.2 mg/dL (0.6-1.0) H Estimated GFR (Cockcroft-Gault) 43.9 BUN/Creatinine Ratio 23 (6-20) H Glucose Level 113 mg/dL (70-99) H Calcium Level 8.8 mg/dL (8.5-10.1) Magnesium Level 2.3 mg/dL (1.8-2.4) Total Bilirubin 0.5 mg/dL (0.2-1.0) Aspartate Amino Transferase (AST) 24 U/L (15-37) Alanine Aminotransferase (ALT) 29 U/L (14-59) Alkaline Phosphatase 62 U/L (46-116) Total Protein 6.5 g/dL (6.4-8.2) Albumin 3.1 g/dL (3.4-5.0) L Albumin/Globulin Ratio 0.9 (1.0-1.7) L White Blood Count 10.1 x10^3/uL (4.0-11.0) Red Blood Count 4.87 x10^6/uL (3.50-5.40) Hemoglobin 14.4 g/dL (12.0-15.5) Hematocrit 43.7 % (36.0-47.0) Mean Corpuscular Volume 90 fL (79-100) Mean Corpuscular Hemoglobin 30 pg (25-35) Mean Corpuscular Hemoglobin Concent 33 g/dL (31-37) Red Cell Distribution Width 15.1 % (11.5-14.5) H Platelet Count 151 x10^3/uL (140-400) Neutrophils (%) (Auto) 77 % (31-73) H Lymphocytes (%) (Auto) 14 % (24-48) L Monocytes (%) (Auto) 6 % (0-9) Eosinophils (%) (Auto) 3 % (0-3) Basophils (%) (Auto) 1 % (0-3) Neutrophils # (Auto) 7.7 x10^3uL (1.8-7.7) Lymphocytes # (Auto) 1.4 x10^3/uL (1.0-4.8) Monocytes # (Auto) 0.6 x10^3/uL (0.0-1.1) Eosinophils # (Auto) 0.3 x10^3/uL (0.0-0.7) Basophils # (Auto) 0.1 x10^3/uL (0.0-0.2) Test 08/06/18 16:16 08/06/18 19:14 Glucose (Fingerstick) 119 mg/dL (70-99) H 119 mg/dL (70-99) H Current Medications: Meds: Current Medications Doxycycline Hyclate (Vibra-Tab) 100 mg 1X ONCE PO Last administered on at 20:15; Start 07/30/18 at 20:15; Stop 07/30/18 at 20:16; Status DC Acetaminophen (Tylenol) 650 mg PRN Q6HRS PRN PO PAIN / TEMP Last administered on 08/04/18at 08:18; Start 07/30/18 at 22:00 Al Hydroxide/Mg Hydroxide (Mylanta Plus Xs) 15 ml PRN AFTMEALHC PRN PO DYSPEPSIA; Start 07/30/18 at 22:00; Status Cancel Magnesium Hydroxide (Milk Of Magnesia) 2,400 mg PRN QHS PRN PO CONSTIPATION; Start 07/30/18 at 22:00 Influenza Virus Vaccine (Afluria Trivalent Syringe) 0.5 ml ONCE ONCE VAX IM ; Start 07/30/18 at 22:30; Stop 07/30/18 at 22:41; Status DC Influenza Virus Vaccine (Afluria Trivalent Syringe) 0.5 ml ONCE ONCE VAX IM ; Start 07/31/18 at 09:00; Stop 07/31/18 at 09:01; Status DC Citalopram Hydrobromide (CeleXA) 40 mg DAILY PO Last administered on at 08:00; Start 07/31/18 at 09:00; Stop 08/04/18 at 16:58; Status DC Acetaminophen (Tylenol) 325 mg PRN Q4HRS PRN PO PAIN; Start 07/31/18 at 01:30 Vitamin D (Vitamin D3) 1,000 unit DAILY PO Last administered on 08/06/18at 07: 54; Start 07/31/18 at 09:00 Diphenhydramine HCl (Benadryl) 25 mg PRN TID PRN PO ALLERGIES; Start 07/31/18 at 01:30 Gabapentin (Neurontin) 100 mg TID PO Last administered on 08/06/18at 20:52; Start 07/31/18 at 09:00 Ibuprofen (Motrin) 400 mg PRN Q4HRS PRN PO PAIN Last administered on at 09:26; Start 07/31/18 at 01:30; Stop 07/31/18 at 16:11; Status DC Losartan Potassium (Cozaar) 25 mg DAILY PO Last administered on 08/06/18at 07: 55; Start 07/31/18 at 09:00 Atorvastatin Calcium (Lipitor) 40 mg HS PO Last administered on 08/06/18at 20: 53; Start 07/31/18 at 21:00 Non-Formulary Medication (Cranberry ) 400 mg TID PO ; Start 07/31/18 at 09:00; Status UNV Guaifenesin (Robitussin Dm) 15 ml PRN Q6HRS PRN PO COUGH; Start 07/31/18 at 07 :30 Insulin Human Lispro (HumaLOG) 15 units TIDAC SQ Last administered on at 11:30; Start 07/31/18 at 07:30; Stop 07/31/18 at 16:13; Status DC Insulin Glargine (Lantus) 10 units DAILY08 SQ Last administered on 07/31/18at 09:13; Start 07/31/18 at 08:00; Stop 07/31/18 at 14:38; Status DC Insulin Glargine (Lantus) 55 units QHS SQ Last administered on 08/06/18at 20:54 ; Start 07/31/18 at 21:00 Lactobacillus Rhamnosus (Culturelle) 1 cap BID PO Last administered on at 20:52; Start 07/31/18 at 09:00 Levothyroxine Sodium (Synthroid) 50 mcg DAILY07 PO Last administered on at 06:15; Start 07/31/18 at 07:00; Stop 08/04/18 at 14:17; Status DC Al Hydroxide/Mg Hydroxide (Mylanta Plus Xs) 30 ml PRN Q2HR PRN PO HEARTBURN / GAS; Start 07/31/18 at 01:30 Insulin Glargine (Lantus) 10 units DAILY08 SQ ; Start 07/31/18 at 14:38; Stop 07/31/18 at 16:13; Status DC Ciprofloxacin (Cipro) 500 mg BID PO Last administered on 08/04/18at 07:59; Start 07/31/18 at 21:00; Stop 08/04/18 at 16:07; Status DC Insulin Human Lispro (HumaLOG) 20 units TIDAC SQ Last administered on at 12:38; Start 07/31/18 at 16:30; Stop 08/04/18 at 13:35; Status DC Insulin Glargine (Lantus) 25 units DAILY08 SQ Last administered on 08/06/18at 07:58; Start 08/01/18 at 08:00 Nystatin (Nystop) 1 dori BID TP Last administered on 08/06/18at 20:53; Start at 21:00; Stop 08/13/18 at 20:59 Insulin Human Lispro (HumaLOG) 20 units TIDWMEALS SQ Last administered on 08/06at 17:00; Start 08/04/18 at 17:00 Levothyroxine Sodium (Synthroid) 50 mcg DAILY06 PO Last administered on at 05:32; Start 08/05/18 at 06:00 Cefpodoxime Proxetil (Vantin) 100 mg BID PO Last administered on 08/06/18at 20: 52; Start 08/04/18 at 21:00; Stop 08/14/18 at 20:59 Sertraline HCl (Zoloft) 50 mg DAILY PO Last administered on 08/06/18at 07:54; Start 08/05/18 at 09:00 Quetiapine Fumarate (SEROquel) 25 mg QHS PO Last administered on 08/06/18at 20: 53; Start 08/05/18 at 21:00 Active Scripts Active Reported Vitamin D3 (Cholecalciferol (Vitamin D3)) 1,000 Unit Tablet 1,000 Unit PO DAILY Tylenol (Acetaminophen) 325 Mg Tablet 325 Mg PO PRN Q4HRS PRN Levothyroxine Sodium 50 Mcg Tablet 50 Mcg PO DAILYAC Robitussin Long-Acting Liq (Dextromethorphan Hbr/Chlor-Mal) 118 Ml Liquid 15 Ml PO PRN Q6HRS Novolog Flexpen (Insulin Aspart) 100 Unit/1 Ml Insuln.pen 15 Unit SQ TIDAC Neurontin (Gabapentin) 100 Mg Capsule 100 Mg PO TID Alum-Mag Hydroxide-Simeth Liq (Mag Hydrox/Al Hydrox/Simeth) 360 Ml Oral.susp 30 Ml PO PRN Q2HR PRN Lipitor (Atorvastatin Calcium) 40 Mg Tablet 40 Mg PO DAILY Levemir Flextouch (Insulin Detemir) 100 Unit/1 Ml Insuln.pen 10 Unit SQ DAILY08 Levemir Flextouch (Insulin Detemir) 100 Unit/1 Ml Insuln.pen 55 Unit SQ QHS Ibuprofen 400 Mg Tablet 400 Mg PO PRN Q4HRS PRN Benadryl (Diphenhydramine Hcl) 25 Mg Capsule 25 Mg PO PRN TID PRN Cranberry 400 Mg Capsule 400 Mg PO TID Cozaar (Losartan Potassium) 25 Mg Tablet 25 Mg PO DAILY Celexa (Citalopram Hydrobromide) 40 Mg Tablet 40 Mg PO DAILY Acidophilus (Lactobacillus Acidophilus) 1 Each Tablet 1 Each PO QID I have reviewed the current psychotropics carefully including drug interactions. Risk benefit ratio favors no change other than as noted in my dictated progress note. Diagnosis: Problems: (1) Anxiety disorder (2) Mild cognitive impairment (3) Impulse control disorder (4) Psychosis, atypical ANGEL MYLES MD Aug 06, 2018 23:46
--- NOTE | 2018-08-07 02:14 | NUR ---
Pt sitting quietly up in w/c in the day room at shift change. Pt pleasant, calm, and interactive w/staff and peers this evening. Pt cooperative & compliant w/meds & assessment.
[2018-08-07] MEDS: LEVOTHYROXINE 50 MCG TABLET PO SCH (05:36)
[2018-08-07 06:29] VITALS: BP 138/90
[2018-08-07] MEDS: CHOLECALCIFEROL (VITAMIN D3) 1,000 UNIT TABLET PO SCH (08:23)
[2018-08-07] MEDS: GABAPENTIN 100 MG CAPSULE. PO SCH ×3 (08:23→20:15)
[2018-08-07] MEDS: CEFPODOXIME PROXETIL 100 MG TABLET PO SCH ×2 (08:23→20:15)
[2018-08-07] MEDS: LACTOBACILLUS RHAMNOSUS GG 1 CAPSULE. PO SCH ×2 (08:23→20:15)
[2018-08-07] MEDS: NYSTATIN TOPICAL POWDER 15GM BOTTLE. TP SCH ×2 (08:24→20:15)
[2018-08-07] MEDS: LOSARTAN 25 MG TABLET. PO SCH (08:24)
[2018-08-07] MEDS: SERTRALINE 50 MG TABLET. PO SCH (08:24)
[2018-08-07] MEDS: INSULIN GLARGINE 300 UNITS/3 ML INSULN.PEN. SQ SCH ×2 (08:25→20:15)
[2018-08-07] MEDS: INSULIN LISPRO 300 UNITS/3 ML INSULN.PEN. SQ SCH ×3 (08:26→17:00)
--- NOTE | 2018-08-07 12:02 | PN ---
DATE: 08/04/2018 PSYCHIATRIC PROGRESS NOTE This late entry 08/04/2018 covers elements not covered in my initial note. SUBJECTIVE: I met with the patient in the evening. Per nursing report, the patient remains somewhat withdrawn, anxious at times, but pleasant, no sexually inappropriate behaviors and she is not hitting or scratching, which are one of the target symptoms prompting admission. She does have a UTI. Antibiotics were changed. She slept 5-1/2 hours previous evening. REVIEW OF SYSTEMS: Ambulation impaired, in wheelchair. No CV, , pulmonary, eye system symptoms on review. MENTAL STATUS EXAM: Oriented to herself and situation. Speech is coherent, has some latency, pleasant, verbal, smiling. Abstraction fair, computation impaired, language function intact. Mood and affect somewhat withdrawn. LABORATORY DATA: Reviewed. IMPRESSION: Major depressive disorder, recurrent; major neurocognitive disorder; Alzheimer, vascular with depression. Rest unchanged. PLAN: Treat the UTI. Change Celexa 40 mg a day to Zoloft 50 mg a day. Rest unchanged from initial note. MAN Viry MYLES MD DR: ARIANA/manjit JOB#: [id number] / [id number]
[2018-08-07 17:06] VITALS: BP 149/76
[2018-08-07] MEDS: ATORVASTATIN CALCIUM 20 MG TABLET PO SCH (20:15)
[2018-08-07] MEDS: QUEtiapine 25 MG TABLET. PO SCH (20:15)
--- NOTE | 2018-08-07 23:15 | PDOC ---
Exam Note: Francisco Note: Please also refer to the separate dictated note~for this date of service dictated separately.~Patient seen individually. Discussed the patient with Nursing staff reviewed the chart.~Reviewed interim history and current functioning. Reviewed vital signs,~Labs/ Radiology~and current medications noted below. Continue current treatment with the changes noted in the dictated addendum note Assessment: Vital Signs: Vital Signs Date Time Temp Pulse Resp B/P (MAP) Pulse Ox O2 Delivery O2 Flow Rate FiO2 08/07/18 17:06 97.4 69 20 149/76 (100) 95 Room Air I&O Intake and Output 08/07/18 07:00 Intake Total 1080 ml Balance 1080 ml Intake Oral 1080 ml # Voids 1 Labs: Laboratory Tests Test 08/07/18 07:30 08/07/18 11:48 08/07/18 17:26 08/07/18 19:03 Glucose (Fingerstick) 107 mg/dL (70-99) H 188 mg/dL (70-99) H 142 mg/dL (70-99) H 136 mg/dL (70-99) H Current Medications: Meds: Current Medications Doxycycline Hyclate (Vibra-Tab) 100 mg 1X ONCE PO Last administered on at 20:15; Start 07/30/18 at 20:15; Stop 07/30/18 at 20:16; Status DC Acetaminophen (Tylenol) 650 mg PRN Q6HRS PRN PO PAIN / TEMP Last administered on 08/04/18at 08:18; Start 07/30/18 at 22:00 Al Hydroxide/Mg Hydroxide (Mylanta Plus Xs) 15 ml PRN AFTMEALHC PRN PO DYSPEPSIA; Start 07/30/18 at 22:00; Status Cancel Magnesium Hydroxide (Milk Of Magnesia) 2,400 mg PRN QHS PRN PO CONSTIPATION; Start 07/30/18 at 22:00 Influenza Virus Vaccine (Afluria Trivalent Syringe) 0.5 ml ONCE ONCE VAX IM ; Start 07/30/18 at 22:30; Stop 07/30/18 at 22:41; Status DC Influenza Virus Vaccine (Afluria Trivalent Syringe) 0.5 ml ONCE ONCE VAX IM ; Start 07/31/18 at 09:00; Stop 07/31/18 at 09:01; Status DC Citalopram Hydrobromide (CeleXA) 40 mg DAILY PO Last administered on 08:00; Start 07/31/18 at 09:00; Stop 08/04/18 at 16:58; Status DC Acetaminophen (Tylenol) 325 mg PRN Q4HRS PRN PO PAIN; Start 07/31/18 at 01:30 Vitamin D (Vitamin D3) 1,000 unit DAILY PO Last administered on 08/07/18at 08: 23; Start 07/31/18 at 09:00 Diphenhydramine HCl (Benadryl) 25 mg PRN TID PRN PO ALLERGIES; Start 07/31/18 at 01:30 Gabapentin (Neurontin) 100 mg TID PO Last administered on 08/07/18at 20:15; Start 07/31/18 at 09:00 Ibuprofen (Motrin) 400 mg PRN Q4HRS PRN PO PAIN Last administered on 09:26; Start 07/31/18 at 01:30; Stop 07/31/18 at 16:11; Status DC Losartan Potassium (Cozaar) 25 mg DAILY PO Last administered on 08/07/18at 08: 24; Start 07/31/18 at 09:00 Atorvastatin Calcium (Lipitor) 40 mg HS PO Last administered on 08/07/18at 20: 15; Start 07/31/18 at 21:00 Non-Formulary Medication (Cranberry ) 400 mg TID PO ; Start 07/31/18 at 09:00; Status UNV Guaifenesin (Robitussin Dm) 15 ml PRN Q6HRS PRN PO COUGH; Start 07/31/18 at 07 :30 Insulin Human Lispro (HumaLOG) 15 units TIDAC SQ Last administered on at 11:30; Start 07/31/18 at 07:30; Stop 07/31/18 at 16:13; Status DC Insulin Glargine (Lantus) 10 units DAILY08 SQ Last administered on 07/31/18at 09:13; Start 07/31/18 at 08:00; Stop 07/31/18 at 14:38; Status DC Insulin Glargine (Lantus) 55 units QHS SQ Last administered on 08/07/18at 20:15 ; Start 07/31/18 at 21:00 Lactobacillus Rhamnosus (Culturelle) 1 cap BID PO Last administered on at 20:15; Start 07/31/18 at 09:00 Levothyroxine Sodium (Synthroid) 50 mcg DAILY07 PO Last administered on at 06:15; Start 07/31/18 at 07:00; Stop 08/04/18 at 14:17; Status DC Al Hydroxide/Mg Hydroxide (Mylanta Plus Xs) 30 ml PRN Q2HR PRN PO HEARTBURN / GAS; Start 07/31/18 at 01:30 Insulin Glargine (Lantus) 10 units DAILY08 SQ ; Start 07/31/18 at 14:38; Stop 07/31/18 at 16:13; Status DC Ciprofloxacin (Cipro) 500 mg BID PO Last administered on 08/04/18at 07:59; Start 07/31/18 at 21:00; Stop 08/04/18 at 16:07; Status DC Insulin Human Lispro (HumaLOG) 20 units TIDAC SQ Last administered on at 12:38; Start 07/31/18 at 16:30; Stop 08/04/18 at 13:35; Status DC Insulin Glargine (Lantus) 25 units DAILY08 SQ Last administered on 08/07/18at 08:25; Start 08/01/18 at 08:00 Nystatin (Nystop) 1 dori BID TP Last administered on 08/07/18at 20:15; Start at 21:00; Stop 08/13/18 at 20:59 Insulin Human Lispro (HumaLOG) 20 units TIDWMEALS SQ Last administered on 08/07at 17:00; Start 08/04/18 at 17:00 Levothyroxine Sodium (Synthroid) 50 mcg DAILY06 PO Last administered on at 05:36; Start 08/05/18 at 06:00 Cefpodoxime Proxetil (Vantin) 100 mg BID PO Last administered on 08/07/18at 20: 15; Start 08/04/18 at 21:00; Stop 08/14/18 at 20:59 Sertraline HCl (Zoloft) 50 mg DAILY PO Last administered on 08/07/18at 08:24; Start 08/05/18 at 09:00 Quetiapine Fumarate (SEROquel) 25 mg QHS PO Last administered on 08/07/18at 20: 15; Start 08/05/18 at 21:00 Active Scripts Active Reported Vitamin D3 (Cholecalciferol (Vitamin D3)) 1,000 Unit Tablet 1,000 Unit PO DAILY Tylenol (Acetaminophen) 325 Mg Tablet 325 Mg PO PRN Q4HRS PRN Levothyroxine Sodium 50 Mcg Tablet 50 Mcg PO DAILYAC Robitussin Long-Acting Liq (Dextromethorphan Hbr/Chlor-Mal) 118 Ml Liquid 15 Ml PO PRN Q6HRS Novolog Flexpen (Insulin Aspart) 100 Unit/1 Ml Insuln.pen 15 Unit SQ TIDAC Neurontin (Gabapentin) 100 Mg Capsule 100 Mg PO TID Alum-Mag Hydroxide-Simeth Liq (Mag Hydrox/Al Hydrox/Simeth) 360 Ml Oral.susp 30 Ml PO PRN Q2HR PRN Lipitor (Atorvastatin Calcium) 40 Mg Tablet 40 Mg PO DAILY Levemir Flextouch (Insulin Detemir) 100 Unit/1 Ml Insuln.pen 10 Unit SQ DAILY08 Levemir Flextouch (Insulin Detemir) 100 Unit/1 Ml Insuln.pen 55 Unit SQ QHS Ibuprofen 400 Mg Tablet 400 Mg PO PRN Q4HRS PRN Benadryl (Diphenhydramine Hcl) 25 Mg Capsule 25 Mg PO PRN TID PRN Cranberry 400 Mg Capsule 400 Mg PO TID Cozaar (Losartan Potassium) 25 Mg Tablet 25 Mg PO DAILY Celexa (Citalopram Hydrobromide) 40 Mg Tablet 40 Mg PO DAILY Acidophilus (Lactobacillus Acidophilus) 1 Each Tablet 1 Each PO QID I have reviewed the current psychotropics carefully including drug interactions. Risk benefit ratio favors no change other than as noted in my dictated progress note. Diagnosis: Problems: (1) Anxiety disorder (2) Mild cognitive impairment (3) Impulse control disorder (4) Psychosis, atypical ANGEL MYLES MD Aug 07, 2018 23:15
--- NOTE | 2018-08-08 00:14 | PN ---
DATE: 08/06/2018 This is a late entry for date of service 08/06/2018 and covers elements not covered in my initial note. SUBJECTIVE: I met with the patient in the evening. The patient slept 7-3/4 hours previous night. She is somewhat resistive to ADLs, has sundowning with worsening confusion in the evening. REVIEW OF SYSTEMS: Ambulation impaired, in wheelchair. No CV, , pulmonary, eye, ENT system symptoms on review. MENTAL STATUS EXAM: Oriented to herself and situation. Speech coherent, pleasant, verbal. Abstraction fair, computation impaired, language function intact, attention span short. Mood and affect remain somewhat anxious, labile at times, but improved. LABORATORY DATA: Reviewed. IMPRESSION: Major neurocognitive disorder, early Alzheimer, vascular with delusion, depression, impulse control disorder; anxiety disorder, unspecified. PLAN: No change from initial note. MAN Viry MYLES MD DR: ARIANA/manjit JOB#: [id number] / [id number]
--- NOTE | 2018-08-08 00:41 | NUR ---
Pt sitting quietly up in w/c in the hallway at shift change. Pt calm, pleasant at that time. pt cooperative & compliant w/meds & assessment. When pt was taken into the shower, she became resistive, agitated, and combative- attempting to hit staff. Pt then put her self on the shower room floor and would not assist staff trying to help her up. Pt was rolling around on the floor in her feces. Using the erika lift, pt was lifted off the floor and given a shower. Afterwards, staff assisted her to bed.
[2018-08-08] MEDS: LEVOTHYROXINE 50 MCG TABLET PO SCH (05:46)
[2018-08-08 06:20] VITALS: BP 127/59
[2018-08-08] MEDS: NYSTATIN TOPICAL POWDER 15GM BOTTLE. TP SCH ×2 (08:00→21:00)
[2018-08-08] MEDS: CEFPODOXIME PROXETIL 100 MG TABLET PO SCH ×2 (08:01→20:05)
[2018-08-08] MEDS: LACTOBACILLUS RHAMNOSUS GG 1 CAPSULE. PO SCH ×2 (08:01→20:05)
[2018-08-08] MEDS: GABAPENTIN 100 MG CAPSULE. PO SCH ×3 (08:01→20:05)
[2018-08-08] MEDS: SERTRALINE 50 MG TABLET. PO SCH (08:01)
[2018-08-08] MEDS: LOSARTAN 25 MG TABLET. PO SCH (08:01)
[2018-08-08] MEDS: CHOLECALCIFEROL (VITAMIN D3) 1,000 UNIT TABLET PO SCH (08:01)
[2018-08-08] MEDS: INSULIN GLARGINE 300 UNITS/3 ML INSULN.PEN. SQ SCH ×2 (08:02→20:07)
[2018-08-08] MEDS: INSULIN LISPRO 300 UNITS/3 ML INSULN.PEN. SQ SCH ×3 (08:04→17:00)
--- NOTE | 2018-08-08 10:00 | NUR ---
Behavior Intervention Response and Plan: BIRP Note: Behavior: Assumed Care of patient, patient located in Day Room at shift change. Patient exhibited the following behavior Compulsive, Restless, Anxious. Brief assessment on rounds of vital signs, medication needs, lab studies, and pain. Treatment plan problems . Intervention: Patient assessed and the following interventions initiated safety checks 15 Minute Checks Cognitive Assessment , Head to toe Assessment , Medications. Response: After interactions and interventions patient responded in the following manner, Disorganized , Restless ,Compliant. Continue to assess behaviors and condition will continue to monitor throughout the shift as needed. Patient educated on ADL's, and hand hygiene. Plan: Continue to monitor Master Treatment Plan for patient's progress toward short term goals of Decreased Anxiety, Improved Mood, intermediate goals to return to previous living setting vs placement. Continue to assess patient for changes in above assessment. Monitor for medication needs, pain, and safety concerns. Hourly rounding performed to ensure safe environment.
--- NOTE | 2018-08-08 12:55 | PN ---
DATE: 08/05/2018 This is a late entry, 08/05/2018, covers the elements not covered in my initial note. SUBJECTIVE: I met with the patient in the evening, staffed at a treatment team meeting with the entire team in the morning. The patient slept 8-1/4 hours the previous evening, somewhat irritable at times. UA on the 07/22/2018, was negative. REVIEW OF SYSTEMS: Ambulation impaired, in wheelchair. No CV, , pulmonary, eye system symptoms on review. MENTAL STATUS EXAM: Oriented to herself and situation. Speech has some latency, coherent, pleasant, verbal, smiling as I met with her. Abstraction fair, computation impaired, language function intact. Mood and affects still somewhat anxious, at times, but improved. LABORATORY DATA: Reviewed. IMPRESSION: Major neurocognitive disorder, early Alzheimer, vascular with delusion, depression; anxiety disorder, unspecified; impulse control disorder. PLAN: The patient's son reportedly visited the patient's home and found a bunch of sex toys and pornographic magazines. She does have a history of sexually inappropriate behaviors, prompting this admission even though she has not shown any during this hospitalization. However, as I met with her in the evening, she was winking at me, but not inappropriately so. Perhaps, there is an element of amber, but we will assess at this in time. We will go ahead and add Seroquel 25 mg p.o. at bedtime. Maintain Zoloft 50 mg a day for now. Consider Depakote later. MAN Viry MYLES MD DR: ARIANA/manjit JOB#: [id number] / [id number]
[2018-08-08 16:54] VITALS: BP 130/53
--- NOTE | 2018-08-08 17:13 | NUR ---
pt up in wc for meals and groups. has been compliant with meds and cares.
--- NOTE | 2018-08-08 18:05 | PN ---
DATE: 08/07/2018 PSYCHIATRIC PROGRESS NOTE This late entry 08/07/2018 covers elements, not covered in my initial note. SUBJECTIVE: I met with the patient in the evening. Overall, per nursing report, the patient has not manifested any overt inappropriate sexual behaviors or comments. She is medication seeking, compliant otherwise. REVIEW OF SYSTEMS: Ambulation impaired, in wheelchair. No CV, , pulmonary, eye system symptoms on review. MENTAL STATUS EXAM: Oriented to herself and situation. Speech has some latency, coherent. Abstraction fair. Computation able to do one step serial 7's. Attention span short. No suicidal or homicidal ideation. LABORATORY DATA: Reviewed. IMPRESSION: Major neurocognitive disorder, early Alzheimer, vascular with delusion; anxiety disorder, unspecified; impulse control disorder. PLAN: No change from initial note. MAN Viry MYLES MD DR: ARIANA/manjit JOB#: [id number] / [id number]
[2018-08-08] MEDS: ATORVASTATIN CALCIUM 20 MG TABLET PO SCH (20:05)
[2018-08-08] MEDS: QUEtiapine 25 MG TABLET. PO SCH (20:05)
--- NOTE | 2018-08-08 23:15 | PDOC ---
Exam Note: Francisco Note: Please also refer to the separate dictated note~for this date of service dictated separately.~Patient seen individually. Discussed the patient with Nursing staff reviewed the chart.~Reviewed interim history and current functioning. Reviewed vital signs,~Labs/ Radiology~and current medications noted below. Continue current treatment with the changes noted in the dictated addendum note Assessment: Vital Signs: Vital Signs Date Time Temp Pulse Resp B/P (MAP) Pulse Ox O2 Delivery O2 Flow Rate FiO2 08/08/18 16:54 97.1 61 20 130/53 (78) 98 Room Air I&O Intake and Output 08/08/18 07:00 Intake Total 960 ml Balance 960 ml Intake Oral 960 ml Labs: Laboratory Tests Test 08/08/18 07:20 08/08/18 11:38 08/08/18 17:02 08/08/18 19:28 Glucose (Fingerstick) 182 mg/dL (70-99) H 206 mg/dL (70-99) H 198 mg/dL (70-99) H 188 mg/dL (70-99) H Current Medications: Meds: Current Medications Doxycycline Hyclate (Vibra-Tab) 100 mg 1X ONCE PO Last administered on at 20:15; Start 07/30/18 at 20:15; Stop 07/30/18 at 20:16; Status DC Acetaminophen (Tylenol) 650 mg PRN Q6HRS PRN PO PAIN / TEMP Last administered on 08/04/18at 08:18; Start 07/30/18 at 22:00 Al Hydroxide/Mg Hydroxide (Mylanta Plus Xs) 15 ml PRN AFTMEALHC PRN PO DYSPEPSIA; Start 07/30/18 at 22:00; Status Cancel Magnesium Hydroxide (Milk Of Magnesia) 2,400 mg PRN QHS PRN PO CONSTIPATION; Start 07/30/18 at 22:00 Influenza Virus Vaccine (Afluria Trivalent 9217-3120 Syringe) 0.5 ml ONCE ONCE VAX IM ; Start 07/30/18 at 22:30; Stop 07/30/18 at 22:41; Status DC Influenza Virus Vaccine (Afluria Trivalent [id number] Syringe) 0.5 ml ONCE ONCE VAX IM ; Start 07/31/18 at 09:00; Stop 07/31/18 at 09:01; Status DC Citalopram Hydrobromide (CeleXA) 40 mg DAILY PO Last administered on 08:00; Start 07/31/18 at 09:00; Stop 08/04/18 at 16:58; Status DC Acetaminophen (Tylenol) 325 mg PRN Q4HRS PRN PO PAIN; Start 07/31/18 at 01:30 Vitamin D (Vitamin D3) 1,000 unit DAILY PO Last administered on 08/08/18at 08: 01; Start 07/31/18 at 09:00 Diphenhydramine HCl (Benadryl) 25 mg PRN TID PRN PO ALLERGIES; Start 07/31/18 at 01:30 Gabapentin (Neurontin) 100 mg TID PO Last administered on 08/08/18at 20:05; Start 07/31/18 at 09:00 Ibuprofen (Motrin) 400 mg PRN Q4HRS PRN PO PAIN Last administered on at 09:26; Start 07/31/18 at 01:30; Stop 07/31/18 at 16:11; Status DC Losartan Potassium (Cozaar) 25 mg DAILY PO Last administered on 08/08/18at 08: 01; Start 07/31/18 at 09:00 Atorvastatin Calcium (Lipitor) 40 mg HS PO Last administered on 08/08/18at 20: 05; Start 07/31/18 at 21:00 Non-Formulary Medication (Cranberry ) 400 mg TID PO ; Start 07/31/18 at 09:00; Status UNV Guaifenesin (Robitussin Dm) 15 ml PRN Q6HRS PRN PO COUGH; Start 07/31/18 at 07 :30 Insulin Human Lispro (HumaLOG) 15 units TIDAC SQ Last administered on at 11:30; Start 07/31/18 at 07:30; Stop 07/31/18 at 16:13; Status DC Insulin Glargine (Lantus) 10 units DAILY08 SQ Last administered on 07/31/18at 09:13; Start 07/31/18 at 08:00; Stop 07/31/18 at 14:38; Status DC Insulin Glargine (Lantus) 55 units QHS SQ Last administered on 08/08/18at 20:07 ; Start 07/31/18 at 21:00 Lactobacillus Rhamnosus (Culturelle) 1 cap BID PO Last administered on at 20:05; Start 07/31/18 at 09:00 Levothyroxine Sodium (Synthroid) 50 mcg DAILY07 PO Last administered on at 06:15; Start 07/31/18 at 07:00; Stop 08/04/18 at 14:17; Status DC Al Hydroxide/Mg Hydroxide (Mylanta Plus Xs) 30 ml PRN Q2HR PRN PO HEARTBURN / GAS; Start 07/31/18 at 01:30 Insulin Glargine (Lantus) 10 units DAILY08 SQ ; Start 07/31/18 at 14:38; Stop 07/31/18 at 16:13; Status DC Ciprofloxacin (Cipro) 500 mg BID PO Last administered on 08/04/18at 07:59; Start 07/31/18 at 21:00; Stop 08/04/18 at 16:07; Status DC Insulin Human Lispro (HumaLOG) 20 units TIDAC SQ Last administered on at 12:38; Start 07/31/18 at 16:30; Stop 08/04/18 at 13:35; Status DC Insulin Glargine (Lantus) 25 units DAILY08 SQ Last administered on 08/08/18at 08:02; Start 08/01/18 at 08:00 Nystatin (Nystop) 1 dori BID TP Last administered on 08/08/18at 08:00; Start at 21:00; Stop 08/13/18 at 20:59 Insulin Human Lispro (HumaLOG) 20 units TIDWMEALS SQ Last administered on 08/08at 17:00; Start 08/04/18 at 17:00 Levothyroxine Sodium (Synthroid) 50 mcg DAILY06 PO Last administered on at 05:46; Start 08/05/18 at 06:00 Cefpodoxime Proxetil (Vantin) 100 mg BID PO Last administered on 08/08/18at 20: 05; Start 08/04/18 at 21:00; Stop 08/14/18 at 20:59 Sertraline HCl (Zoloft) 50 mg DAILY PO Last administered on 10/28/18at 08:01; Start 08/05/18 at 09:00 Quetiapine Fumarate (SEROquel) 25 mg QHS PO Last administered on 08/08/18at 20: 05; Start 08/05/18 at 21:00 Active Scripts Active Reported Vitamin D3 (Cholecalciferol (Vitamin D3)) 1,000 Unit Tablet 1,000 Unit PO DAILY Tylenol (Acetaminophen) 325 Mg Tablet 325 Mg PO PRN Q4HRS PRN Levothyroxine Sodium 50 Mcg Tablet 50 Mcg PO DAILYAC Robitussin Long-Acting Liq (Dextromethorphan Hbr/Chlor-Mal) 118 Ml Liquid 15 Ml PO PRN Q6HRS Novolog Flexpen (Insulin Aspart) 100 Unit/1 Ml Insuln.pen 15 Unit SQ TIDAC Neurontin (Gabapentin) 100 Mg Capsule 100 Mg PO TID Alum-Mag Hydroxide-Simeth Liq (Mag Hydrox/Al Hydrox/Simeth) 360 Ml Oral.susp 30 Ml PO PRN Q2HR PRN Lipitor (Atorvastatin Calcium) 40 Mg Tablet 40 Mg PO DAILY Levemir Flextouch (Insulin Detemir) 100 Unit/1 Ml Insuln.pen 10 Unit SQ DAILY08 Levemir Flextouch (Insulin Detemir) 100 Unit/1 Ml Insuln.pen 55 Unit SQ QHS Ibuprofen 400 Mg Tablet 400 Mg PO PRN Q4HRS PRN Benadryl (Diphenhydramine Hcl) 25 Mg Capsule 25 Mg PO PRN TID PRN Cranberry 400 Mg Capsule 400 Mg PO TID Cozaar (Losartan Potassium) 25 Mg Tablet 25 Mg PO DAILY Celexa (Citalopram Hydrobromide) 40 Mg Tablet 40 Mg PO DAILY Acidophilus (Lactobacillus Acidophilus) 1 Each Tablet 1 Each PO QID I have reviewed the current psychotropics carefully including drug interactions. Risk benefit ratio favors no change other than as noted in my dictated progress note. Diagnosis: Problems: (1) Anxiety disorder (2) Mild cognitive impairment (3) Impulse control disorder (4) Psychosis, atypical ANGEL MYLES MD Aug 08, 2018 23:15
--- NOTE | 2018-08-09 01:55 | PN ---
DATE: 08/07/2018 PSYCHIATRIC PROGRESS NOTE This late entry 08/07/2018 covers elements, not covered in my initial note. SUBJECTIVE: I met with the patient in the evening. Overall, per nursing report, the patient is doing about the same. She slept reasonably well. At times, somewhat anxious, labile, but less sedated during the day, as we are reducing the Klonopin. REVIEW OF SYSTEMS: No CV, , pulmonary, eye system symptoms on review. Gait unsteady with walker. MENTAL STATUS EXAM: Oriented to herself and situation. Speech coherent, pleasant, verbal, smiling at me. Abstraction fair, computation impaired, language function intact, attention span short. Mood and affect at times somewhat anxious, labile, withdrawn, but improved. LABORATORY DATA: Reviewed. IMPRESSION: Schizoaffective disorder, bipolar type, mixed with psychotic features; cognitive disorder, unspecified. PLAN: No change from initial note. Gradually continued to increase Clozaril, then we will reduce the daytime scheduled trazodone and Klonopin and perhaps the Haldol Decanoate in time. MAN Viry MYLES MD DR: ARIANA/manjit JOB#: [id number] / [id number]
--- NOTE | 2018-08-09 02:04 | NUR ---
Nursing Note Pt up in chair pleasant calm and cooperative, denies complaints. Max assist for transfers with the sit to stand lift.
[2018-08-09] MEDS: LEVOTHYROXINE 50 MCG TABLET PO SCH (06:06)
[2018-08-09 06:19] VITALS: BP 130/76
[2018-08-09] MEDS: INSULIN LISPRO 300 UNITS/3 ML INSULN.PEN. SQ SCH ×3 (09:31→16:51)
[2018-08-09] MEDS: INSULIN GLARGINE 300 UNITS/3 ML INSULN.PEN. SQ SCH ×2 (09:32→20:09)
[2018-08-09] MEDS: SERTRALINE 50 MG TABLET. PO SCH (09:33)
[2018-08-09] MEDS: GABAPENTIN 100 MG CAPSULE. PO SCH ×3 (09:33→20:06)
[2018-08-09] MEDS: LACTOBACILLUS RHAMNOSUS GG 1 CAPSULE. PO SCH ×2 (09:33→20:06)
[2018-08-09] MEDS: CHOLECALCIFEROL (VITAMIN D3) 1,000 UNIT TABLET PO SCH (09:33)
[2018-08-09] MEDS: CEFPODOXIME PROXETIL 100 MG TABLET PO SCH ×2 (09:33→20:07)
[2018-08-09] MEDS: LOSARTAN 25 MG TABLET. PO SCH (09:34)
[2018-08-09] MEDS: NYSTATIN TOPICAL POWDER 15GM BOTTLE. TP SCH ×2 (09:35→20:07)
[2018-08-09 15:44] VITALS: BP 125/53
--- NOTE | 2018-08-09 18:17 | NUR ---
Behavior Intervention Response and Plan: BIRP Note: Behavior: Assumed Care of patient, patient located in Dining Room at shift change. Patient exhibited the following behavior Calm, Compliant, Compliant. Brief assessment on rounds of vital signs, medication needs, lab studies, and pain. Treatment plan problems 1 & 2. Intervention: Patient assessed and the following interventions initiated safety checks 15 Minute Checks Medications , Cognitive Assessment , Head to toe Assessment. Response: After interactions and interventions patient responded in the following manner, Calm , Cooperative ,Cooperative. Continue to assess behaviors and condition will continue to monitor throughout the shift as needed. Patient educated on ADL's, and hand hygiene. Plan: Continue to monitor Master Treatment Plan for patient's progress toward short term goals of Decreased Aggression, Decreased Agitation, superintendent container terminal goals to return to previous living setting vs placement. Continue to assess patient for changes in above assessment. Monitor for medication needs, pain, and safety concerns. Hourly rounding performed to ensure safe environment.
[2018-08-09] MEDS: ATORVASTATIN CALCIUM 20 MG TABLET PO SCH (20:06)
[2018-08-09] MEDS: QUEtiapine 50 MG TABLET. PO SCH (20:08)
--- NOTE | 2018-08-09 23:05 | NUR ---
Nursing note: Assumed care of pt in the day room. She was quiet and pleasant but asked to be taken to bed. She was not very happy when advised she was scheduled for a shower. Pt complaint w/meds and assessment. No c/o pain.
--- NOTE | 2018-08-09 23:17 | PDOC ---
Exam Note: Francisco Note: Please also refer to the separate dictated note~for this date of service dictated separately.~Patient seen individually. Discussed the patient with Nursing staff reviewed the chart.~Reviewed interim history and current functioning. Reviewed vital signs,~Labs/ Radiology~and current medications noted below. Continue current treatment with the changes noted in the dictated addendum note Assessment: Vital Signs: Vital Signs Date Time Temp Pulse Resp B/P (MAP) Pulse Ox O2 Delivery O2 Flow Rate FiO2 08/09/18 15:44 97.9 81 19 125/53 (77) 96 Room Air I&O Intake and Output 08/09/18 07:00 Intake Total 1680 ml Balance 1680 ml Intake Oral 1680 ml # Bowel Movements 2 Labs: Laboratory Tests Test 08/09/18 07:40 08/09/18 11:19 08/09/18 16:31 08/09/18 19:08 Glucose (Fingerstick) 150 mg/dL (70-99) H 210 mg/dL (70-99) H 85 mg/dL (70-99) 181 mg/dL (70-99) H Current Medications: Meds: Current Medications Doxycycline Hyclate (Vibra-Tab) 100 mg 1X ONCE PO Last administered on at 20:15; Start 07/30/18 at 20:15; Stop 07/30/18 at 20:16; Status DC Acetaminophen (Tylenol) 650 mg PRN Q6HRS PRN PO PAIN / TEMP Last administered on 08/04/18at 08:18; Start 07/30/18 at 22:00 Al Hydroxide/Mg Hydroxide (Mylanta Plus Xs) 15 ml PRN AFTMEALHC PRN PO DYSPEPSIA; Start 07/30/18 at 22:00; Status Cancel Magnesium Hydroxide (Milk Of Magnesia) 2,400 mg PRN QHS PRN PO CONSTIPATION; Start 07/30/18 at 22:00 Influenza Virus Vaccine (Afluria Trivalent Syringe) 0.5 ml ONCE ONCE VAX IM ; Start 07/30/18 at 22:30; Stop 07/30/18 at 22:41; Status DC Influenza Virus Vaccine (Afluria Trivalent Syringe) 0.5 ml ONCE ONCE VAX IM ; Start 07/31/18 at 09:00; Stop 07/31/18 at 09:01; Status DC Citalopram Hydrobromide (CeleXA) 40 mg DAILY PO Last administered on 08:00; Start 07/31/18 at 09:00; Stop 08/04/18 at 16:58; Status DC Acetaminophen (Tylenol) 325 mg PRN Q4HRS PRN PO PAIN; Start 07/31/18 at 01:30 Vitamin D (Vitamin D3) 1,000 unit DAILY PO Last administered on 08/09/18at 09: 33; Start 07/31/18 at 09:00 Diphenhydramine HCl (Benadryl) 25 mg PRN TID PRN PO ALLERGIES; Start 07/31/18 at 01:30 Gabapentin (Neurontin) 100 mg TID PO Last administered on 08/09/18 20:06; Start 07/31/18 at 09:00 Ibuprofen (Motrin) 400 mg PRN Q4HRS PRN PO PAIN Last administered on 09:26; Start 07/31/18 at 01:30; Stop 07/31/18 at 16:11; Status DC Losartan Potassium (Cozaar) 25 mg DAILY PO Last administered on 08/09/18 09: 34; Start 07/31/18 at 09:00 Atorvastatin Calcium (Lipitor) 40 mg HS PO Last administered on 08/09/18at 20: 06; Start 07/31/18 at 21:00 Non-Formulary Medication (Cranberry ) 400 mg TID PO ; Start 07/31/18 at 09:00; Status UNV Guaifenesin (Robitussin Dm) 15 ml PRN Q6HRS PRN PO COUGH; Start 07/31/18 at 07 :30 Insulin Human Lispro (HumaLOG) 15 units TIDAC SQ Last administered on at 11:30; Start 07/31/18 at 07:30; Stop 07/31/18 at 16:13; Status DC Insulin Glargine (Lantus) 10 units DAILY08 SQ Last administered on 07/31/18at 09:13; Start 07/31/18 at 08:00; Stop 07/31/18 at 14:38; Status DC Insulin Glargine (Lantus) 55 units QHS SQ Last administered on 08/09/18at 20:09 ; Start 07/31/18 at 21:00 Lactobacillus Rhamnosus (Culturelle) 1 cap BID PO Last administered on 20:06; Start 07/31/18 at 09:00 Levothyroxine Sodium (Synthroid) 50 mcg DAILY07 PO Last administered on at 06:15; Start 07/31/18 at 07:00; Stop 08/04/18 at 14:17; Status DC Al Hydroxide/Mg Hydroxide (Mylanta Plus Xs) 30 ml PRN Q2HR PRN PO HEARTBURN / GAS; Start 07/31/18 at 01:30 Insulin Glargine (Lantus) 10 units DAILY08 SQ ; Start 07/31/18 at 14:38; Stop 07/31/18 at 16:13; Status DC Ciprofloxacin (Cipro) 500 mg BID PO Last administered on 08/04/18 07:59; Start 07/31/18 at 21:00; Stop 08/04/18 at 16:07; Status DC Insulin Human Lispro (HumaLOG) 20 units TIDAC SQ Last administered on at 12:38; Start 07/31/18 at 16:30; Stop 08/04/18 at 13:35; Status DC Insulin Glargine (Lantus) 25 units DAILY08 SQ Last administered on 08/09/18at 09:32; Start 08/01/18 at 08:00 Nystatin (Nystop) 1 dori BID TP Last administered on 08/09/18 20:07; Start at 21:00; Stop 08/13/18 at 20:59 Insulin Human Lispro (HumaLOG) 20 units TIDWMEALS SQ Last administered on 08/09at 16:51; Start 08/04/18 at 17:00 Levothyroxine Sodium (Synthroid) 50 mcg DAILY06 PO Last administered on 06:06; Start 08/05/18 at 06:00 Cefpodoxime Proxetil (Vantin) 100 mg BID PO Last administered on 08/09/18 20: 07; Start 08/04/18 at 21:00; Stop 08/14/18 at 20:59 Sertraline HCl (Zoloft) 50 mg DAILY PO Last administered on 10/29/18at 09:33; Start 08/05/18 at 09:00 Quetiapine Fumarate (SEROquel) 25 mg QHS PO Last administered on 08/08/18at 20: 05; Start 08/05/18 at 21:00; Stop 08/09/18 at 16:30; Status DC Quetiapine Fumarate (SEROquel) 50 mg QHS PO Last administered on 08/09/18at 20: 08; Start 08/09/18 at 21:00 Active Scripts Active Reported Vitamin D3 (Cholecalciferol (Vitamin D3)) 1,000 Unit Tablet 1,000 Unit PO DAILY Tylenol (Acetaminophen) 325 Mg Tablet 325 Mg PO PRN Q4HRS PRN Levothyroxine Sodium 50 Mcg Tablet 50 Mcg PO DAILYAC Robitussin Long-Acting Liq (Dextromethorphan Hbr/Chlor-Mal) 118 Ml Liquid 15 Ml PO PRN Q6HRS Novolog Flexpen (Insulin Aspart) 100 Unit/1 Ml Insuln.pen 15 Unit SQ TIDAC Neurontin (Gabapentin) 100 Mg Capsule 100 Mg PO TID Alum-Mag Hydroxide-Simeth Liq (Mag Hydrox/Al Hydrox/Simeth) 360 Ml Oral.susp 30 Ml PO PRN Q2HR PRN Lipitor (Atorvastatin Calcium) 40 Mg Tablet 40 Mg PO DAILY Levemir Flextouch (Insulin Detemir) 100 Unit/1 Ml Insuln.pen 10 Unit SQ DAILY08 Levemir Flextouch (Insulin Detemir) 100 Unit/1 Ml Insuln.pen 55 Unit SQ QHS Ibuprofen 400 Mg Tablet 400 Mg PO PRN Q4HRS PRN Benadryl (Diphenhydramine Hcl) 25 Mg Capsule 25 Mg PO PRN TID PRN Cranberry 400 Mg Capsule 400 Mg PO TID Cozaar (Losartan Potassium) 25 Mg Tablet 25 Mg PO DAILY Celexa (Citalopram Hydrobromide) 40 Mg Tablet 40 Mg PO DAILY Acidophilus (Lactobacillus Acidophilus) 1 Each Tablet 1 Each PO QID I have reviewed the current psychotropics carefully including drug interactions. Risk benefit ratio favors no change other than as noted in my dictated progress note. Diagnosis: Problems: (1) Anxiety disorder (2) Mild cognitive impairment (3) Impulse control disorder (4) Psychosis, atypical ANGEL MYLES MD Aug 09, 2018 23:17
--- NOTE | 2018-08-10 01:33 | PN ---
DATE: 08/08/2018 PSYCHIATRIC PROGRESS NOTE This late entry 08/08/2018 covers elements not covered in my initial note. SUBJECTIVE: I met with the patient in the evening. The patient slept 5-3/4 hours previous night. She has been cooperative, compliant with medications, assessments, becomes resistive, agitated, combative during showers. She attempted to hit staff and put self on the floor during showers. I addressed this with her. REVIEW OF SYSTEMS: Ambulation impaired, in Broda chair. No CV, , pulmonary, eye, ENT system symptoms on review. MENTAL STATUS EXAM: Reasonably oriented. Speech has some latency, coherent. Abstraction fair, computation impaired, language function intact, attention span short. Mood and affect, lability is improved. No sexually inappropriate behavior. LABORATORY DATA: Reviewed. IMPRESSION: Unchanged from initial note. PLAN: No change from initial note, but we may need to increase Seroquel in due course. ANGEL MYLES MD DR: ARIANA/manjit JOB#: [id number] / [id number]
[2018-08-10] MEDS: LEVOTHYROXINE 50 MCG TABLET PO SCH (06:28)
[2018-08-10 06:38] VITALS: BP 122/56
[2018-08-10] MEDS: INSULIN LISPRO 300 UNITS/3 ML INSULN.PEN. SQ SCH ×3 (08:35→17:25)
[2018-08-10] MEDS: INSULIN GLARGINE 300 UNITS/3 ML INSULN.PEN. SQ SCH ×2 (08:37→19:50)
[2018-08-10] MEDS: LACTOBACILLUS RHAMNOSUS GG 1 CAPSULE. PO SCH ×2 (08:39→19:48)
[2018-08-10] MEDS: LOSARTAN 25 MG TABLET. PO SCH (08:39)
[2018-08-10] MEDS: GABAPENTIN 100 MG CAPSULE. PO SCH ×3 (08:39→19:48)
[2018-08-10] MEDS: SERTRALINE 50 MG TABLET. PO SCH (08:40)
[2018-08-10] MEDS: CHOLECALCIFEROL (VITAMIN D3) 1,000 UNIT TABLET PO SCH (08:40)
[2018-08-10] MEDS: NYSTATIN TOPICAL POWDER 15GM BOTTLE. TP SCH ×2 (08:41→19:48)
[2018-08-10] MEDS: CEFPODOXIME PROXETIL 100 MG TABLET PO SCH ×2 (08:42→19:48)
--- NOTE | 2018-08-10 11:41 | NUR ---
Received phone call from DEBRA Ponce at [facility], requesting update on Anel. Reviewed recent notes from physician and nurses with [facility] and informed that tentative d/c date will be around the august.
[2018-08-10 16:10] VITALS: BP 138/82
--- NOTE | 2018-08-10 16:57 | NUR ---
Assumed care of pt @ approx 0700. Pt was sitting in W/C in hallway at the time of our initial encounter. Pt A/O x 2-3. Pleasant and cooperative. Compliant w/meds and insulin. No signs of hallucinations, delusions, or paranoia. Denies pain. No needs voiced at this time. Will continue to monitor and assist pt in working towards her treatment and discharge goals.
[2018-08-10] MEDS: ATORVASTATIN CALCIUM 20 MG TABLET PO SCH (19:48)
[2018-08-10] MEDS: QUEtiapine 50 MG TABLET. PO SCH (19:48)
--- NOTE | 2018-08-10 22:17 | NUR ---
Nursing note: Assumed care of pt in the day room. She was visiting with a peer and watching tv. She was pleasant, compliant, and appreciative. No c/o pain, no behaviors.
--- NOTE | 2018-08-10 23:16 | PDOC ---
Exam Note: Francisco Note: Please also refer to the separate dictated note~for this date of service dictated separately.~Patient seen individually. Discussed the patient with Nursing staff reviewed the chart.~Reviewed interim history and current functioning. Reviewed vital signs,~Labs/ Radiology~and current medications noted below. Continue current treatment with the changes noted in the dictated addendum note Assessment: Vital Signs: Vital Signs Date Time Temp Pulse Resp B/P (MAP) Pulse Ox O2 Delivery O2 Flow Rate FiO2 08/10/18 16:10 97.6 67 20 138/82 (100) 94 Room Air I&O Intake and Output 08/10/18 07:00 Intake Total 1440 ml Balance 1440 ml Intake Oral 1440 ml # Voids 1 # Bowel Movements 2 Labs: Laboratory Tests Test 08/10/18 07:45 08/10/18 12:04 08/10/18 17:09 08/10/18 19:08 Glucose (Fingerstick) 113 mg/dL (70-99) H 224 mg/dL (70-99) H 198 mg/dL (70-99) H 195 mg/dL (70-99) H Current Medications: Meds: Current Medications Doxycycline Hyclate (Vibra-Tab) 100 mg 1X ONCE PO Last administered on at 20:15; Start 07/30/18 at 20:15; Stop 07/30/18 at 20:16; Status DC Acetaminophen (Tylenol) 650 mg PRN Q6HRS PRN PO PAIN / TEMP Last administered on 08/04/18at 08:18; Start 07/30/18 at 22:00 Al Hydroxide/Mg Hydroxide (Mylanta Plus Xs) 15 ml PRN AFTMEALHC PRN PO DYSPEPSIA; Start 07/30/18 at 22:00; Status Cancel Magnesium Hydroxide (Milk Of Magnesia) 2,400 mg PRN QHS PRN PO CONSTIPATION; Start 07/30/18 at 22:00 Influenza Virus Vaccine (Afluria Trivalent [id number] Syringe) 0.5 ml ONCE ONCE VAX IM ; Start 07/30/18 at 22:30; Stop 07/30/18 at 22:41; Status DC Influenza Virus Vaccine (Afluria Trivalent Syringe) 0.5 ml ONCE ONCE VAX IM ; Start 07/31/18 at 09:00; Stop 07/31/18 at 09:01; Status DC Citalopram Hydrobromide (CeleXA) 40 mg DAILY PO Last administered on 08:00; Start 07/31/18 at 09:00; Stop 08/04/18 at 16:58; Status DC Acetaminophen (Tylenol) 325 mg PRN Q4HRS PRN PO PAIN; Start 07/31/18 at 01:30 Vitamin D (Vitamin D3) 1,000 unit DAILY PO Last administered on 08/10/18 08: 40; Start 07/31/18 at 09:00 Diphenhydramine HCl (Benadryl) 25 mg PRN TID PRN PO ALLERGIES; Start 07/31/18 at 01:30 Gabapentin (Neurontin) 100 mg TID PO Last administered on 08/10/18 19:48; Start 07/31/18 at 09:00 Ibuprofen (Motrin) 400 mg PRN Q4HRS PRN PO PAIN Last administered on 09:26; Start 07/31/18 at 01:30; Stop 07/31/18 at 16:11; Status DC Losartan Potassium (Cozaar) 25 mg DAILY PO Last administered on 08/10/18 08: 39; Start 07/31/18 at 09:00 Atorvastatin Calcium (Lipitor) 40 mg HS PO Last administered on 08/10/18 19: 48; Start 07/31/18 at 21:00 Non-Formulary Medication (Cranberry ) 400 mg TID PO ; Start 07/31/18 at 09:00; Status UNV Guaifenesin (Robitussin Dm) 15 ml PRN Q6HRS PRN PO COUGH; Start 07/31/18 at 07 :30 Insulin Human Lispro (HumaLOG) 15 units TIDAC SQ Last administered on at 11:30; Start 07/31/18 at 07:30; Stop 07/31/18 at 16:13; Status DC Insulin Glargine (Lantus) 10 units DAILY08 SQ Last administered on 07/31/18at 09:13; Start 07/31/18 at 08:00; Stop 07/31/18 at 14:38; Status DC Insulin Glargine (Lantus) 55 units QHS SQ Last administered on 08/10/18 19:50 ; Start 07/31/18 at 21:00 Lactobacillus Rhamnosus (Culturelle) 1 cap BID PO Last administered on 19:48; Start 07/31/18 at 09:00 Levothyroxine Sodium (Synthroid) 50 mcg DAILY07 PO Last administered on 06:15; Start 07/31/18 at 07:00; Stop 08/04/18 at 14:17; Status DC Al Hydroxide/Mg Hydroxide (Mylanta Plus Xs) 30 ml PRN Q2HR PRN PO HEARTBURN / GAS; Start 07/31/18 at 01:30 Insulin Glargine (Lantus) 10 units DAILY08 SQ ; Start 07/31/18 at 14:38; Stop 07/31/18 at 16:13; Status DC Ciprofloxacin (Cipro) 500 mg BID PO Last administered on 08/04/18 07:59; Start 07/31/18 at 21:00; Stop 08/04/18 at 16:07; Status DC Insulin Human Lispro (HumaLOG) 20 units TIDAC SQ Last administered on at 12:38; Start 07/31/18 at 16:30; Stop 08/04/18 at 13:35; Status DC Insulin Glargine (Lantus) 25 units DAILY08 SQ Last administered on 08/10/18at 08:37; Start 08/01/18 at 08:00 Nystatin (Nystop) 1 dori BID TP Last administered on 08/10/18 19:48; Start at 21:00; Stop 08/13/18 at 20:59 Insulin Human Lispro (HumaLOG) 20 units TIDWMEALS SQ Last administered on 08/10 17:25; Start 08/04/18 at 17:00 Levothyroxine Sodium (Synthroid) 50 mcg DAILY06 PO Last administered on 06:28; Start 08/05/18 at 06:00 Cefpodoxime Proxetil (Vantin) 100 mg BID PO Last administered on 08/10/18 19: 48; Start 08/04/18 at 21:00; Stop 08/14/18 at 20:59 Sertraline HCl (Zoloft) 50 mg DAILY PO Last administered on 10/30/18at 08:40; Start 08/05/18 at 09:00 Quetiapine Fumarate (SEROquel) 25 mg QHS PO Last administered on 08/08/18at 20: 05; Start 08/05/18 at 21:00; Stop 08/09/18 at 16:30; Status DC Quetiapine Fumarate (SEROquel) 50 mg QHS PO Last administered on 08/10/18at 19: 48; Start 08/09/18 at 21:00 Active Scripts Active Reported Vitamin D3 (Cholecalciferol (Vitamin D3)) 1,000 Unit Tablet 1,000 Unit PO DAILY Tylenol (Acetaminophen) 325 Mg Tablet 325 Mg PO PRN Q4HRS PRN Levothyroxine Sodium 50 Mcg Tablet 50 Mcg PO DAILYAC Robitussin Long-Acting Liq (Dextromethorphan Hbr/Chlor-Mal) 118 Ml Liquid 15 Ml PO PRN Q6HRS Novolog Flexpen (Insulin Aspart) 100 Unit/1 Ml Insuln.pen 15 Unit SQ TIDAC Neurontin (Gabapentin) 100 Mg Capsule 100 Mg PO TID Alum-Mag Hydroxide-Simeth Liq (Mag Hydrox/Al Hydrox/Simeth) 360 Ml Oral.susp 30 Ml PO PRN Q2HR PRN Lipitor (Atorvastatin Calcium) 40 Mg Tablet 40 Mg PO DAILY Levemir Flextouch (Insulin Detemir) 100 Unit/1 Ml Insuln.pen 10 Unit SQ DAILY08 Levemir Flextouch (Insulin Detemir) 100 Unit/1 Ml Insuln.pen 55 Unit SQ QHS Ibuprofen 400 Mg Tablet 400 Mg PO PRN Q4HRS PRN Benadryl (Diphenhydramine Hcl) 25 Mg Capsule 25 Mg PO PRN TID PRN Cranberry 400 Mg Capsule 400 Mg PO TID Cozaar (Losartan Potassium) 25 Mg Tablet 25 Mg PO DAILY Celexa (Citalopram Hydrobromide) 40 Mg Tablet 40 Mg PO DAILY Acidophilus (Lactobacillus Acidophilus) 1 Each Tablet 1 Each PO QID I have reviewed the current psychotropics carefully including drug interactions. Risk benefit ratio favors no change other than as noted in my dictated progress note. Diagnosis: Problems: (1) Anxiety disorder (2) Mild cognitive impairment (3) Impulse control disorder (4) Psychosis, atypical ANGEL MYLES MD Aug 10, 2018 23:16
--- NOTE | 2018-08-11 04:35 | PN ---
DATE: 08/09/2018 PSYCHIATRIC PROGRESS NOTE This late entry of 08/09/2018 covers elements not covered in my initial note. SUBJECTIVE: I met with the patient in the evening. The patient slept 7 hours previous night, doing about the same per nursing staff. Previous night she was quite attention seeking, overwhelmed in the evening, alert to herself, place, and year. REVIEW OF SYSTEMS: Ambulation impaired, in wheelchair. No CV, , pulmonary, eye, ENT system symptoms on review. MENTAL STATUS EXAM: Oriented to herself and situation. Speech has some latency, often responses monosyllabic. Abstraction fair, computation impaired, language function intact, attention span short. Mood and affect remain somewhat anxious, at times labile. LABORATORY DATA: Reviewed. IMPRESSION: Major neurocognitive disorder, vascular with delusions; bipolar 1 disorder, unspecified. Rest unchanged. PLAN: Continue Zoloft 50 mg a day, increase Seroquel from 25 at bedtime to 50 mg at bedtime. Adjust further as clinically indicated. She is alert to herself, place and year, somewhat overwhelmed in the evening and attention seeking the previous night. MAN Viry MYLES MD DR: ARIANA/manjit JOB#: [id number] / [id number]
[2018-08-11] MEDS: LEVOTHYROXINE 50 MCG TABLET PO SCH (05:51)
[2018-08-11 05:54] VITALS: BP 101/60
[2018-08-11] MEDS: LOSARTAN 25 MG TABLET. PO SCH (09:07)
[2018-08-11] MEDS: SERTRALINE 50 MG TABLET. PO SCH (09:07)
[2018-08-11] MEDS: LACTOBACILLUS RHAMNOSUS GG 1 CAPSULE. PO SCH ×2 (09:07→19:38)
[2018-08-11] MEDS: NYSTATIN TOPICAL POWDER 15GM BOTTLE. TP SCH ×2 (09:08→19:39)
[2018-08-11] MEDS: CHOLECALCIFEROL (VITAMIN D3) 1,000 UNIT TABLET PO SCH (09:08)
[2018-08-11] MEDS: CEFPODOXIME PROXETIL 100 MG TABLET PO SCH ×2 (09:08→19:39)
[2018-08-11] MEDS: GABAPENTIN 100 MG CAPSULE. PO SCH ×3 (09:08→19:39)
[2018-08-11] MEDS: INSULIN GLARGINE 300 UNITS/3 ML INSULN.PEN. SQ SCH ×3 (09:11→20:07)
[2018-08-11] MEDS: INSULIN LISPRO 300 UNITS/3 ML INSULN.PEN. SQ SCH ×3 (09:12→17:48)
--- NOTE | 2018-08-11 09:45 | NUR ---
Pt compliant w/ meds and assessment, pleasant, cooperative and appreciative. No complaints of pain.
[2018-08-11 16:43] VITALS: BP 134/76
[2018-08-11] MEDS: ACETAMINOPHEN 325 MG TABLET PO PRN (18:34)
[2018-08-11] MEDS: ATORVASTATIN CALCIUM 20 MG TABLET PO SCH (19:39)
[2018-08-11] MEDS: QUEtiapine 50 MG TABLET. PO SCH (19:39)
--- NOTE | 2018-08-11 21:28 | NUR ---
Nursing note: Assumed care of pt in the day room. She was calm and compliant, pleasant but withdrawn. She had no c/o pain, no behaviors. She is A&OX3.
--- NOTE | 2018-08-11 23:30 | PDOC ---
Exam Note: Francisco Note: Please also refer to the separate dictated note~for this date of service dictated separately.~Patient seen individually. Discussed the patient with Nursing staff reviewed the chart.~Reviewed interim history and current functioning. Reviewed vital signs,~Labs/ Radiology~and current medications noted below. Continue current treatment with the changes noted in the dictated addendum note Assessment: Vital Signs: Vital Signs Date Time Temp Pulse Resp B/P (MAP) Pulse Ox O2 Delivery O2 Flow Rate FiO2 08/11/18 16:43 98.2 80 20 134/76 (95) 97 08/10/18 16:10 Room Air I&O Intake and Output 08/11/18 07:00 Intake Total 1200 ml Balance 1200 ml Intake Oral 1200 ml # Bowel Movements 1 Labs: Laboratory Tests Test 08/11/18 07:11 08/11/18 11:22 08/11/18 16:50 08/11/18 19:47 Glucose (Fingerstick) 125 mg/dL (70-99) H 188 mg/dL (70-99) H 86 mg/dL (70-99) 126 mg/dL (70-99) H Current Medications: Meds: Current Medications Doxycycline Hyclate (Vibra-Tab) 100 mg 1X ONCE PO Last administered on at 20:15; Start 07/30/18 at 20:15; Stop 07/30/18 at 20:16; Status DC Acetaminophen (Tylenol) 650 mg PRN Q6HRS PRN PO PAIN / TEMP Last administered on 08/11/18at 18:34; Start 07/30/18 at 22:00 Al Hydroxide/Mg Hydroxide (Mylanta Plus Xs) 15 ml PRN AFTMEALHC PRN PO DYSPEPSIA; Start 07/30/18 at 22:00; Status Cancel Magnesium Hydroxide (Milk Of Magnesia) 2,400 mg PRN QHS PRN PO CONSTIPATION; Start 07/30/18 at 22:00 Influenza Virus Vaccine (Afluria Trivalent [id number] Syringe) 0.5 ml ONCE ONCE VAX IM ; Start 07/30/18 at 22:30; Stop 07/30/18 at 22:41; Status DC Influenza Virus Vaccine (Afluria Trivalent Syringe) 0.5 ml ONCE ONCE VAX IM ; Start 07/31/18 at 09:00; Stop 07/31/18 at 09:01; Status DC Citalopram Hydrobromide (CeleXA) 40 mg DAILY PO Last administered on 08:00; Start 07/31/18 at 09:00; Stop 08/04/18 at 16:58; Status DC Acetaminophen (Tylenol) 325 mg PRN Q4HRS PRN PO PAIN; Start 07/31/18 at 01:30 Vitamin D (Vitamin D3) 1,000 unit DAILY PO Last administered on 08/11/18 09: 08; Start 07/31/18 at 09:00 Diphenhydramine HCl (Benadryl) 25 mg PRN TID PRN PO ALLERGIES; Start 07/31/18 at 01:30 Gabapentin (Neurontin) 100 mg TID PO Last administered on 08/11/18at 19:39; Start 07/31/18 at 09:00 Ibuprofen (Motrin) 400 mg PRN Q4HRS PRN PO PAIN Last administered on 09:26; Start 07/31/18 at 01:30; Stop 07/31/18 at 16:11; Status DC Losartan Potassium (Cozaar) 25 mg DAILY PO Last administered on 08/11/18 09: 07; Start 07/31/18 at 09:00 Atorvastatin Calcium (Lipitor) 40 mg HS PO Last administered on 08/11/18at 19: 39; Start 07/31/18 at 21:00 Non-Formulary Medication (Cranberry ) 400 mg TID PO ; Start 07/31/18 at 09:00; Status UNV Guaifenesin (Robitussin Dm) 15 ml PRN Q6HRS PRN PO COUGH; Start 07/31/18 at 07 :30 Insulin Human Lispro (HumaLOG) 15 units TIDAC SQ Last administered on at 11:30; Start 07/31/18 at 07:30; Stop 07/31/18 at 16:13; Status DC Insulin Glargine (Lantus) 10 units DAILY08 SQ Last administered on 07/31/18at 09:13; Start 07/31/18 at 08:00; Stop 07/31/18 at 14:38; Status DC Insulin Glargine (Lantus) 55 units QHS SQ Last administered on 10/30/18at 19:50 ; Start 07/31/18 at 21:00 Lactobacillus Rhamnosus (Culturelle) 1 cap BID PO Last administered on 19:38; Start 07/31/18 at 09:00 Levothyroxine Sodium (Synthroid) 50 mcg DAILY07 PO Last administered on 06:15; Start 07/31/18 at 07:00; Stop 08/04/18 at 14:17; Status DC Al Hydroxide/Mg Hydroxide (Mylanta Plus Xs) 30 ml PRN Q2HR PRN PO HEARTBURN / GAS; Start 07/31/18 at 01:30 Insulin Glargine (Lantus) 10 units DAILY08 SQ ; Start 07/31/18 at 14:38; Stop 07/31/18 at 16:13; Status DC Ciprofloxacin (Cipro) 500 mg BID PO Last administered on 08/04/18at 07:59; Start 07/31/18 at 21:00; Stop 08/04/18 at 16:07; Status DC Insulin Human Lispro (HumaLOG) 20 units TIDAC SQ Last administered on at 12:38; Start 07/31/18 at 16:30; Stop 08/04/18 at 13:35; Status DC Insulin Glargine (Lantus) 25 units DAILY08 SQ Last administered on 08/11/18at 09:11; Start 08/01/18 at 08:00 Nystatin (Nystop) 1 dori BID TP Last administered on 08/11/18at 19:39; Start at 21:00; Stop 08/13/18 at 20:59 Insulin Human Lispro (HumaLOG) 20 units TIDWMEALS SQ Last administered on 08/11at 17:48; Start 08/04/18 at 17:00 Levothyroxine Sodium (Synthroid) 50 mcg DAILY06 PO Last administered on 05:51; Start 08/05/18 at 06:00 Cefpodoxime Proxetil (Vantin) 100 mg BID PO Last administered on 08/11/18at 19: 39; Start 08/04/18 at 21:00; Stop 08/14/18 at 20:59 Sertraline HCl (Zoloft) 50 mg DAILY PO Last administered on 10/31/18at 09:07; Start 08/05/18 at 09:00 Quetiapine Fumarate (SEROquel) 25 mg QHS PO Last administered on 08/08/18at 20: 05; Start 08/05/18 at 21:00; Stop 08/09/18 at 16:30; Status DC Quetiapine Fumarate (SEROquel) 50 mg QHS PO Last administered on 08/11/18at 19: 39; Start 08/09/18 at 21:00 Active Scripts Active Reported Vitamin D3 (Cholecalciferol (Vitamin D3)) 1,000 Unit Tablet 1,000 Unit PO DAILY Tylenol (Acetaminophen) 325 Mg Tablet 325 Mg PO PRN Q4HRS PRN Levothyroxine Sodium 50 Mcg Tablet 50 Mcg PO DAILYAC Robitussin Long-Acting Liq (Dextromethorphan Hbr/Chlor-Mal) 118 Ml Liquid 15 Ml PO PRN Q6HRS Novolog Flexpen (Insulin Aspart) 100 Unit/1 Ml Insuln.pen 15 Unit SQ TIDAC Neurontin (Gabapentin) 100 Mg Capsule 100 Mg PO TID Alum-Mag Hydroxide-Simeth Liq (Mag Hydrox/Al Hydrox/Simeth) 360 Ml Oral.susp 30 Ml PO PRN Q2HR PRN Lipitor (Atorvastatin Calcium) 40 Mg Tablet 40 Mg PO DAILY Levemir Flextouch (Insulin Detemir) 100 Unit/1 Ml Insuln.pen 10 Unit SQ DAILY08 Levemir Flextouch (Insulin Detemir) 100 Unit/1 Ml Insuln.pen 55 Unit SQ QHS Ibuprofen 400 Mg Tablet 400 Mg PO PRN Q4HRS PRN Benadryl (Diphenhydramine Hcl) 25 Mg Capsule 25 Mg PO PRN TID PRN Cranberry 400 Mg Capsule 400 Mg PO TID Cozaar (Losartan Potassium) 25 Mg Tablet 25 Mg PO DAILY Celexa (Citalopram Hydrobromide) 40 Mg Tablet 40 Mg PO DAILY Acidophilus (Lactobacillus Acidophilus) 1 Each Tablet 1 Each PO QID I have reviewed the current psychotropics carefully including drug interactions. Risk benefit ratio favors no change other than as noted in my dictated progress note. Diagnosis: Problems: (1) Anxiety disorder (2) Mild cognitive impairment (3) Impulse control disorder (4) Psychosis, atypical ANGEL MYLES MD Aug 11, 2018 23:30
--- NOTE | 2018-08-12 03:17 | PN ---
DATE: 08/10/2018 PSYCHIATRIC PROGRESS NOTE This late entry 08/10/2018 covers elements not covered in my initial note. SUBJECTIVE: I met with the patient in the evening. The patient slept 7 hours previous night. She has been compliant by nursing staff, no talk about sexual matters. REVIEW OF SYSTEMS: Ambulation impaired, in wheelchair. No CV, , pulmonary, eye, ENT system symptoms on review. MENTAL STATUS EXAM: Oriented to herself and situation. Speech coherent, less pressured. Abstraction fair, computation impaired, language function intact, attention span short. Mood and affect remains somewhat withdrawn at times. During the individual visit, I showed her detailed description of behaviors that prompted this hospitalization. She professed ignorance of any of that and we addressed this at length. LABORATORY DATA: Reviewed. IMPRESSION: Major neurocognitive disorder, early Alzheimer, vascular with delusion, depression; anxiety disorder, unspecified; impulse control disorder, unspecified. PLAN: Continue psychotropics from initial note. Seroquel 50 at bedtime, Zoloft 50 mg a day. Adjust further as clinically indicated. MAN Viry MYLES MD DR: ARIANA/manjit JOB#: [id number] / [id number]
[2018-08-12 05:52] VITALS: BP 110/56
[2018-08-12] MEDS: LEVOTHYROXINE 50 MCG TABLET PO SCH (06:05)
[2018-08-12 07:50] VITALS: BP 118/72
[2018-08-12] MEDS: LACTOBACILLUS RHAMNOSUS GG 1 CAPSULE. PO SCH ×2 (08:19→20:07)
[2018-08-12] MEDS: CHOLECALCIFEROL (VITAMIN D3) 1,000 UNIT TABLET PO SCH (08:19)
[2018-08-12] MEDS: SERTRALINE 50 MG TABLET. PO SCH (08:20)
[2018-08-12] MEDS: NYSTATIN TOPICAL POWDER 15GM BOTTLE. TP SCH ×2 (08:20→20:07)
[2018-08-12] MEDS: GABAPENTIN 100 MG CAPSULE. PO SCH ×3 (08:20→20:07)
[2018-08-12] MEDS: LOSARTAN 25 MG TABLET. PO SCH (08:20)
[2018-08-12] MEDS: CEFPODOXIME PROXETIL 100 MG TABLET PO SCH ×2 (08:20→20:07)
[2018-08-12] MEDS: INSULIN GLARGINE 300 UNITS/3 ML INSULN.PEN. SQ SCH ×2 (08:22→22:19)
[2018-08-12] MEDS: INSULIN LISPRO 300 UNITS/3 ML INSULN.PEN. SQ SCH ×3 (08:25→17:00)
--- NOTE | 2018-08-12 09:00 | NUR ---
WEEKLY ACTIVITY THERAPY NOTE Date of Admission: 07/30/2018 Date of AT Assessment: 08/03/2018 Goal aimed: to increase leisure awareness and socialization Initial goal: Pt. will participate in at least three groups, fully, per week. Weekly progress towards goal: did not achieve Group participation level: moderate Behaviors observed: Pt. tends to be more engaged in the morning and sleeps often in the afternoon; Pt. seems to enjoy trivia and socializing with others; Pt. is generally friendly with others and compliant with cares Plan: no change to goal
--- NOTE | 2018-08-12 09:47 | NUR ---
Pt compliant w/ meds/asses, no complaints of pain, cooperative, appreciative. Alert and oriented.
[2018-08-12] MEDS: ACETAMINOPHEN 325 MG TABLET PO PRN (14:04)
--- NOTE | 2018-08-12 15:53 | NUR ---
Behavior Intervention Response and Plan: BIRP Note: Behavior: Assumed Care of patient, patient located in Dining Room at shift change. Patient exhibited the following behavior Calm, Compliant, Cooperative. Brief assessment on rounds of vital signs, medication needs, lab studies, and pain. Treatment plan problems alteration in thought process and fall risk. Intervention: Patient assessed and the following interventions initiated safety checks 15 Minute Checks Head to toe Assessment , Cognitive Assessment , Medications. Response: After interactions and interventions patient responded in the following manner, Calm , Compliant ,Cooperative. Continue to assess behaviors and condition will continue to monitor throughout the shift as needed. Patient educated on ADL's, and hand hygiene. Plan: Continue to monitor Master Treatment Plan for patient's progress toward short term goals of Decreased Agitation, Decreased Aggression, [facility] goals to return to previous living setting vs placement. Continue to assess patient for changes in above assessment. Monitor for medication needs, pain, and safety concerns. Hourly rounding performed to ensure safe environment.
[2018-08-12 16:15] VITALS: BP 119/71
[2018-08-12] MEDS: ATORVASTATIN CALCIUM 20 MG TABLET PO SCH (20:07)
[2018-08-12] MEDS: QUEtiapine 50 MG TABLET. PO SCH (20:07)
--- NOTE | 2018-08-12 23:18 | PDOC ---
Exam Note: Francisco Note: Please also refer to the separate dictated note~for this date of service dictated separately.~Patient seen individually. Discussed the patient with Nursing staff reviewed the chart.~Reviewed interim history and current functioning. Reviewed vital signs,~Labs/ Radiology~and current medications noted below. Continue current treatment with the changes noted in the dictated addendum note Assessment: Vital Signs: Vital Signs Date Time Temp Pulse Resp B/P (MAP) Pulse Ox O2 Delivery O2 Flow Rate FiO2 08/12/18 16:15 98.4 69 20 119/71 (87) 96 Room Air I&O Intake and Output 08/12/18 07:00 Intake Total 961 ml Balance 961 ml Intake Oral 961 ml # Voids 2 # Bowel Movements 2 Labs: Laboratory Tests Test 08/12/18 07:25 08/12/18 11:13 08/12/18 16:53 08/12/18 19:25 Glucose (Fingerstick) 113 mg/dL (70-99) H 183 mg/dL (70-99) H 101 mg/dL (70-99) H 130 mg/dL (70-99) H Test 08/12/18 22:17 Glucose (Fingerstick) 166 mg/dL (70-99) H Current Medications: Meds: Current Medications Doxycycline Hyclate (Vibra-Tab) 100 mg 1X ONCE PO Last administered on at 20:15; Start 07/30/18 at 20:15; Stop 07/30/18 at 20:16; Status DC Acetaminophen (Tylenol) 650 mg PRN Q6HRS PRN PO PAIN / TEMP Last administered on 08/12/18at 14:04; Start 07/30/18 at 22:00 Al Hydroxide/Mg Hydroxide (Mylanta Plus Xs) 15 ml PRN AFTMEALHC PRN PO DYSPEPSIA; Start 07/30/18 at 22:00; Status Cancel Magnesium Hydroxide (Milk Of Magnesia) 2,400 mg PRN QHS PRN PO CONSTIPATION; Start 07/30/18 at 22:00 Influenza Virus Vaccine (Afluria Trivalent Syringe) 0.5 ml ONCE ONCE VAX IM ; Start 07/30/18 at 22:30; Stop 07/30/18 at 22:41; Status DC Influenza Virus Vaccine (Afluria Trivalent Syringe) 0.5 ml ONCE ONCE VAX IM ; Start 07/31/18 at 09:00; Stop 07/31/18 at 09:01; Status DC Citalopram Hydrobromide (CeleXA) 40 mg DAILY PO Last administered on at 08:00; Start 07/31/18 at 09:00; Stop 08/04/18 at 16:58; Status DC Acetaminophen (Tylenol) 325 mg PRN Q4HRS PRN PO PAIN; Start 07/31/18 at 01:30 Vitamin D (Vitamin D3) 1,000 unit DAILY PO Last administered on 08/12/18at 08:19 ; Start 07/31/18 at 09:00 Diphenhydramine HCl (Benadryl) 25 mg PRN TID PRN PO ALLERGIES; Start 07/31/18 at 01:30 Gabapentin (Neurontin) 100 mg TID PO Last administered on 08/12/18at 20:07; Start 07/31/18 at 09:00 Ibuprofen (Motrin) 400 mg PRN Q4HRS PRN PO PAIN Last administered on at 09:26; Start 07/31/18 at 01:30; Stop 07/31/18 at 16:11; Status DC Losartan Potassium (Cozaar) 25 mg DAILY PO Last administered on 08/12/18at 08:20 ; Start 07/31/18 at 09:00 Atorvastatin Calcium (Lipitor) 40 mg HS PO Last administered on 08/12/18at 20:07 ; Start 07/31/18 at 21:00 Non-Formulary Medication (Cranberry ) 400 mg TID PO ; Start 07/31/18 at 09:00; Status UNV Guaifenesin (Robitussin Dm) 15 ml PRN Q6HRS PRN PO COUGH; Start 07/31/18 at 07 :30 Insulin Human Lispro (HumaLOG) 15 units TIDAC SQ Last administered on at 11:30; Start 07/31/18 at 07:30; Stop 07/31/18 at 16:13; Status DC Insulin Glargine (Lantus) 10 units DAILY08 SQ Last administered on 07/31/18at 09:13; Start 07/31/18 at 08:00; Stop 07/31/18 at 14:38; Status DC Insulin Glargine (Lantus) 55 units QHS SQ Last administered on 08/12/18at 22:19 ; Start 07/31/18 at 21:00 Lactobacillus Rhamnosus (Culturelle) 1 cap BID PO Last administered on at 20:07; Start 07/31/18 at 09:00 Levothyroxine Sodium (Synthroid) 50 mcg DAILY07 PO Last administered on at 06:15; Start 07/31/18 at 07:00; Stop 08/04/18 at 14:17; Status DC Al Hydroxide/Mg Hydroxide (Mylanta Plus Xs) 30 ml PRN Q2HR PRN PO HEARTBURN / GAS; Start 07/31/18 at 01:30 Insulin Glargine (Lantus) 10 units DAILY08 SQ ; Start 07/31/18 at 14:38; Stop 07/31/18 at 16:13; Status DC Ciprofloxacin (Cipro) 500 mg BID PO Last administered on 08/04/18at 07:59; Start 07/31/18 at 21:00; Stop 08/04/18 at 16:07; Status DC Insulin Human Lispro (HumaLOG) 20 units TIDAC SQ Last administered on at 12:38; Start 07/31/18 at 16:30; Stop 08/04/18 at 13:35; Status DC Insulin Glargine (Lantus) 25 units DAILY08 SQ Last administered on 08/12/18at 08 :22; Start 08/01/18 at 08:00 Nystatin (Nystop) 1 dori BID TP Last administered on 08/12/18at 20:07; Start at 21:00; Stop 08/13/18 at 20:59 Insulin Human Lispro (HumaLOG) 20 units TIDWMEALS SQ Last administered on at 17:00; Start 08/04/18 at 17:00 Levothyroxine Sodium (Synthroid) 50 mcg DAILY06 PO Last administered on at 06:05; Start 08/05/18 at 06:00 Cefpodoxime Proxetil (Vantin) 100 mg BID PO Last administered on 08/12/18at 20: 07; Start 08/04/18 at 21:00; Stop 08/14/18 at 20:59 Sertraline HCl (Zoloft) 50 mg DAILY PO Last administered on 08/12/18at 08:20; Start 08/05/18 at 09:00 Quetiapine Fumarate (SEROquel) 25 mg QHS PO Last administered on 08/08/18at 20: 05; Start 08/05/18 at 21:00; Stop 08/09/18 at 16:30; Status DC Quetiapine Fumarate (SEROquel) 50 mg QHS PO Last administered on 08/12/18at 20: 07; Start 08/09/18 at 21:00 Active Scripts Active Reported Vitamin D3 (Cholecalciferol (Vitamin D3)) 1,000 Unit Tablet 1,000 Unit PO DAILY Tylenol (Acetaminophen) 325 Mg Tablet 325 Mg PO PRN Q4HRS PRN Levothyroxine Sodium 50 Mcg Tablet 50 Mcg PO DAILYAC Robitussin Long-Acting Liq (Dextromethorphan Hbr/Chlor-Mal) 118 Ml Liquid 15 Ml PO PRN Q6HRS Novolog Flexpen (Insulin Aspart) 100 Unit/1 Ml Insuln.pen 15 Unit SQ TIDAC Neurontin (Gabapentin) 100 Mg Capsule 100 Mg PO TID Alum-Mag Hydroxide-Simeth Liq (Mag Hydrox/Al Hydrox/Simeth) 360 Ml Oral.susp 30 Ml PO PRN Q2HR PRN Lipitor (Atorvastatin Calcium) 40 Mg Tablet 40 Mg PO DAILY Levemir Flextouch (Insulin Detemir) 100 Unit/1 Ml Insuln.pen 10 Unit SQ DAILY08 Levemir Flextouch (Insulin Detemir) 100 Unit/1 Ml Insuln.pen 55 Unit SQ QHS Ibuprofen 400 Mg Tablet 400 Mg PO PRN Q4HRS PRN Benadryl (Diphenhydramine Hcl) 25 Mg Capsule 25 Mg PO PRN TID PRN Cranberry 400 Mg Capsule 400 Mg PO TID Cozaar (Losartan Potassium) 25 Mg Tablet 25 Mg PO DAILY Celexa (Citalopram Hydrobromide) 40 Mg Tablet 40 Mg PO DAILY Acidophilus (Lactobacillus Acidophilus) 1 Each Tablet 1 Each PO QID I have reviewed the current psychotropics carefully including drug interactions. Risk benefit ratio favors no change other than as noted in my dictated progress note. Diagnosis: Problems: (1) Anxiety disorder (2) Mild cognitive impairment (3) Impulse control disorder (4) Psychosis, atypical ANGEL MYLES MD Aug 12, 2018 23:18
--- NOTE | 2018-08-13 00:29 | NUR ---
Pt sitting up quietly in w/c in the day room at shift change. Pt calm, pleasant, & interactive this evening. Pt cooperative & compliant w/meds & assessment.
--- NOTE | 2018-08-13 02:05 | PN ---
DATE: 08/11/2018 PSYCHIATRIC PROGRESS NOTE This late entry 08/11/2018 covers elements not covered in my initial note. SUBJECTIVE: I met with the patient in the evening. The patient slept 8-1/4 hours previous night. She has been somewhat calmer during the day and cooperative. Did well at night. No inappropriate sexual behaviors noted. REVIEW OF SYSTEMS: Ambulation impaired, in wheelchair. No CV, , pulmonary, eye system symptoms on review. MENTAL STATUS EXAM: Oriented to herself and situation. Speech, often responses monosyllabic. Abstraction fair, computation impaired, language function intact. No suicidal or homicidal ideation. I once again discussed at some length circumstances prompting admission with the inappropriate sexual behaviors and ways to abstain from this post discharge. LABORATORY DATA: Reviewed. IMPRESSION: Major neurocognitive disorder, early Alzheimer, vascular with delusion, behavioral disturbance, impulse control disorder; anxiety disorder, unspecified; status post urinary tract infection. PLAN: No change from initial note. The patient remains on Zoloft 50 mg a day, Seroquel was increased to 50 mg at bedtime. MAN Viry MYLES MD DR: ARIANA/manjit JOB#: [id number] / [id number]
[2018-08-13] MEDS: LEVOTHYROXINE 50 MCG TABLET PO SCH (05:56)
[2018-08-13 06:19] VITALS: BP 162/97
[2018-08-13] MEDS: NYSTATIN TOPICAL POWDER 15GM BOTTLE. TP SCH (07:53)
[2018-08-13] MEDS: GABAPENTIN 100 MG CAPSULE. PO SCH ×3 (07:53→20:02)
[2018-08-13] MEDS: CEFPODOXIME PROXETIL 100 MG TABLET PO SCH ×2 (07:53→20:02)
[2018-08-13] MEDS: LOSARTAN 25 MG TABLET. PO SCH (07:54)
[2018-08-13] MEDS: CHOLECALCIFEROL (VITAMIN D3) 1,000 UNIT TABLET PO SCH (07:54)
[2018-08-13] MEDS: SERTRALINE 50 MG TABLET. PO SCH (07:54)
[2018-08-13] MEDS: LACTOBACILLUS RHAMNOSUS GG 1 CAPSULE. PO SCH ×2 (07:54→20:03)
[2018-08-13] MEDS: INSULIN LISPRO 300 UNITS/3 ML INSULN.PEN. SQ SCH ×3 (07:55→17:00)
[2018-08-13] MEDS: INSULIN GLARGINE 300 UNITS/3 ML INSULN.PEN. SQ SCH ×2 (07:56→20:04)
--- NOTE | 2018-08-13 09:52 | NUR ---
Behavior Intervention Response and Plan: BIRP Note: Behavior: Assumed Care of patient, patient located in Day Room at shift change. Patient exhibited the following behavior Compulsive, Restless, Anxious. Brief assessment on rounds of vital signs, medication needs, lab studies, and pain. Treatment plan problems . Intervention: Patient assessed and the following interventions initiated safety checks 15 Minute Checks Cognitive Assessment , Head to toe Assessment , Medications. Response: After interactions and interventions patient responded in the following manner, Disorganized , Restless ,Compliant. Continue to assess behaviors and condition will continue to monitor throughout the shift as needed. Patient educated on ADL's, and hand hygiene. Plan: Continue to monitor Master Treatment Plan for patient's progress toward short term goals of Decreased Anxiety, Improved Mood, residential goals to return to previous living setting vs placement. Continue to assess patient for changes in above assessment. Monitor for medication needs, pain, and safety concerns. Hourly rounding performed to ensure safe environment.
[2018-08-13 15:55] VITALS: BP 147/78
--- NOTE | 2018-08-13 18:31 | NUR ---
pt up for meals. compliant with meds and cares.
[2018-08-13] MEDS: ATORVASTATIN CALCIUM 20 MG TABLET PO SCH (20:02)
[2018-08-13] MEDS: QUEtiapine 50 MG TABLET. PO SCH (20:03)
--- NOTE | 2018-08-13 23:14 | PDOC ---
Exam Note: Francisco Note: Please also refer to the separate dictated note~for this date of service dictated separately.~Patient seen individually. Discussed the patient with Nursing staff reviewed the chart.~Reviewed interim history and current functioning. Reviewed vital signs,~Labs/ Radiology~and current medications noted below. Continue current treatment with the changes noted in the dictated addendum note Assessment: Vital Signs: Vital Signs Date Time Temp Pulse Resp B/P (MAP) Pulse Ox O2 Delivery O2 Flow Rate FiO2 08/13/18 15:55 98.1 68 19 147/78 (101) 100 Room Air I&O Intake and Output 08/13/18 07:00 Intake Total 1320 ml Balance 1320 ml Intake Oral 1320 ml # Voids 1 # Bowel Movements 1 Labs: Laboratory Tests Test 08/13/18 07:06 08/13/18 11:34 08/13/18 16:35 08/13/18 19:44 Glucose (Fingerstick) 128 mg/dL (70-99) H 151 mg/dL (70-99) H 79 mg/dL (70-99) 197 mg/dL (70-99) H Current Medications: Meds: Current Medications Doxycycline Hyclate (Vibra-Tab) 100 mg 1X ONCE PO Last administered on at 20:15; Start 07/30/18 at 20:15; Stop 07/30/18 at 20:16; Status DC Acetaminophen (Tylenol) 650 mg PRN Q6HRS PRN PO PAIN / TEMP Last administered on 08/12/18at 14:04; Start 07/30/18 at 22:00 Al Hydroxide/Mg Hydroxide (Mylanta Plus Xs) 15 ml PRN AFTMEALHC PRN PO DYSPEPSIA; Start 07/30/18 at 22:00; Status Cancel Magnesium Hydroxide (Milk Of Magnesia) 2,400 mg PRN QHS PRN PO CONSTIPATION; Start 07/30/18 at 22:00 Influenza Virus Vaccine (Afluria Trivalent Syringe) 0.5 ml ONCE ONCE VAX IM ; Start 07/30/18 at 22:30; Stop 07/30/18 at 22:41; Status DC Influenza Virus Vaccine (Afluria Trivalent Syringe) 0.5 ml ONCE ONCE VAX IM ; Start 07/31/18 at 09:00; Stop 07/31/18 at 09:01; Status DC Citalopram Hydrobromide (CeleXA) 40 mg DAILY PO Last administered on at 08:00; Start 07/31/18 at 09:00; Stop 08/04/18 at 16:58; Status DC Acetaminophen (Tylenol) 325 mg PRN Q4HRS PRN PO PAIN; Start 07/31/18 at 01:30 Vitamin D (Vitamin D3) 1,000 unit DAILY PO Last administered on 08/13/18at 07:54 ; Start 07/31/18 at 09:00 Diphenhydramine HCl (Benadryl) 25 mg PRN TID PRN PO ALLERGIES; Start 07/31/18 at 01:30 Gabapentin (Neurontin) 100 mg TID PO Last administered on 08/13/18at 20:02; Start 07/31/18 at 09:00 Ibuprofen (Motrin) 400 mg PRN Q4HRS PRN PO PAIN Last administered on at 09:26; Start 07/31/18 at 01:30; Stop 07/31/18 at 16:11; Status DC Losartan Potassium (Cozaar) 25 mg DAILY PO Last administered on 08/13/18at 07:54 ; Start 07/31/18 at 09:00 Atorvastatin Calcium (Lipitor) 40 mg HS PO Last administered on 08/13/18at 20:02 ; Start 07/31/18 at 21:00 Non-Formulary Medication (Cranberry ) 400 mg TID PO ; Start 07/31/18 at 09:00; Status UNV Guaifenesin (Robitussin Dm) 15 ml PRN Q6HRS PRN PO COUGH; Start 07/31/18 at 07 :30 Insulin Human Lispro (HumaLOG) 15 units TIDAC SQ Last administered on at 11:30; Start 07/31/18 at 07:30; Stop 07/31/18 at 16:13; Status DC Insulin Glargine (Lantus) 10 units DAILY08 SQ Last administered on 07/31/18at 09:13; Start 07/31/18 at 08:00; Stop 07/31/18 at 14:38; Status DC Insulin Glargine (Lantus) 55 units QHS SQ Last administered on 08/13/18at 20:04 ; Start 07/31/18 at 21:00 Lactobacillus Rhamnosus (Culturelle) 1 cap BID PO Last administered on at 20:03; Start 07/31/18 at 09:00 Levothyroxine Sodium (Synthroid) 50 mcg DAILY07 PO Last administered on at 06:15; Start 07/31/18 at 07:00; Stop 08/04/18 at 14:17; Status DC Al Hydroxide/Mg Hydroxide (Mylanta Plus Xs) 30 ml PRN Q2HR PRN PO HEARTBURN / GAS; Start 07/31/18 at 01:30 Insulin Glargine (Lantus) 10 units DAILY08 SQ ; Start 07/31/18 at 14:38; Stop 07/31/18 at 16:13; Status DC Ciprofloxacin (Cipro) 500 mg BID PO Last administered on 08/04/18at 07:59; Start 07/31/18 at 21:00; Stop 08/04/18 at 16:07; Status DC Insulin Human Lispro (HumaLOG) 20 units TIDAC SQ Last administered on at 12:38; Start 07/31/18 at 16:30; Stop 08/04/18 at 13:35; Status DC Insulin Glargine (Lantus) 25 units DAILY08 SQ Last administered on 08/13/18at 07 :56; Start 08/01/18 at 08:00 Nystatin (Nystop) 1 dori BID TP Last administered on 08/13/18at 07:53; Start at 21:00; Stop 08/13/18 at 20:59; Status DC Insulin Human Lispro (HumaLOG) 20 units TIDWMEALS SQ Last administered on at 12:03; Start 08/04/18 at 17:00 Levothyroxine Sodium (Synthroid) 50 mcg DAILY06 PO Last administered on at 05:56; Start 08/05/18 at 06:00 Cefpodoxime Proxetil (Vantin) 100 mg BID PO Last administered on 08/13/18at 20: 02; Start 08/04/18 at 21:00; Stop 08/14/18 at 20:59 Sertraline HCl (Zoloft) 50 mg DAILY PO Last administered on 08/13/18at 07:54; Start 08/05/18 at 09:00 Quetiapine Fumarate (SEROquel) 25 mg QHS PO Last administered on 08/08/18at 20: 05; Start 08/05/18 at 21:00; Stop 08/09/18 at 16:30; Status DC Quetiapine Fumarate (SEROquel) 50 mg QHS PO Last administered on 08/13/18at 20: 03; Start 08/09/18 at 21:00 Active Scripts Active Reported Vitamin D3 (Cholecalciferol (Vitamin D3)) 1,000 Unit Tablet 1,000 Unit PO DAILY Tylenol (Acetaminophen) 325 Mg Tablet 325 Mg PO PRN Q4HRS PRN Levothyroxine Sodium 50 Mcg Tablet 50 Mcg PO DAILYAC Robitussin Long-Acting Liq (Dextromethorphan Hbr/Chlor-Mal) 118 Ml Liquid 15 Ml PO PRN Q6HRS Novolog Flexpen (Insulin Aspart) 100 Unit/1 Ml Insuln.pen 15 Unit SQ TIDAC Neurontin (Gabapentin) 100 Mg Capsule 100 Mg PO TID Alum-Mag Hydroxide-Simeth Liq (Mag Hydrox/Al Hydrox/Simeth) 360 Ml Oral.susp 30 Ml PO PRN Q2HR PRN Lipitor (Atorvastatin Calcium) 40 Mg Tablet 40 Mg PO DAILY Levemir Flextouch (Insulin Detemir) 100 Unit/1 Ml Insuln.pen 10 Unit SQ DAILY08 Levemir Flextouch (Insulin Detemir) 100 Unit/1 Ml Insuln.pen 55 Unit SQ QHS Ibuprofen 400 Mg Tablet 400 Mg PO PRN Q4HRS PRN Benadryl (Diphenhydramine Hcl) 25 Mg Capsule 25 Mg PO PRN TID PRN Cranberry 400 Mg Capsule 400 Mg PO TID Cozaar (Losartan Potassium) 25 Mg Tablet 25 Mg PO DAILY Celexa (Citalopram Hydrobromide) 40 Mg Tablet 40 Mg PO DAILY Acidophilus (Lactobacillus Acidophilus) 1 Each Tablet 1 Each PO QID I have reviewed the current psychotropics carefully including drug interactions. Risk benefit ratio favors no change other than as noted in my dictated progress note. Diagnosis: Problems: (1) Anxiety disorder (2) Mild cognitive impairment (3) Impulse control disorder (4) Psychosis, atypical ANGEL MYLES MD Aug 13, 2018 23:14
--- NOTE | 2018-08-14 00:38 | NUR ---
Behavior Intervention Response and Plan: BIRP Note: Behavior: Assumed Care of patient, patient located in Day Room at shift change. Patient exhibited the following behavior Calm, Interactive, Appropriate. Brief assessment on rounds of vital signs, medication needs, lab studies, and pain. Treatment plan problems 1 and 2. Intervention: Patient assessed and the following interventions initiated safety checks 15 Minute Checks Cognitive Assessment , Head to toe Assessment , Medications. Response: After interactions and interventions patient responded in the following manner, Calm , Compliant ,Cooperative. Continue to assess behaviors and condition will continue to monitor throughout the shift as needed. Patient educated on ADL's, and hand hygiene. Plan: Continue to monitor Master Treatment Plan for patient's progress toward short term goals of Decreased Agitation, Decreased Aggression, [facility] goals to return to previous living setting vs placement. Continue to assess patient for changes in above assessment. Monitor for medication needs, pain, and safety concerns. Hourly rounding performed to ensure safe environment.
--- NOTE | 2018-08-14 01:28 | PN ---
DATE: 08/12/2018 PSYCHIATRIC PROGRESS NOTE This late entry 08/12/2018 covers elements not covered in my initial note. SUBJECTIVE: I met with the patient in the evening and staffed at treatment team meeting with the entire team in the morning. The patient slept 8 hours previous evening. We have not noticed inappropriate sexual behaviors that prompted admission and addressed this transition back to the assisted. REVIEW OF SYSTEMS: Ambulation impaired, in wheelchair. No CV, , pulmonary, eye, ENT system symptoms on review. MENTAL STATUS EXAM: Reasonably oriented to herself and situation. Speech has some latency, coherent. Abstraction fair, computation impaired, language function intact, attention span short. Mood and affect less labile, somewhat withdrawn at times. LABORATORY DATA: Reviewed. IMPRESSION: Major neurocognitive disorder, early vascular with delusion, behavioral disturbance, impulse control disorder; anxiety disorder, unspecified. PLAN: No change from initial note. Maintain Seroquel and Zoloft at current dosage. MAN Viry MYLES MD DR: ARIANA/manjit JOB#: [id number] / [id number]
[2018-08-14] MEDS: ACETAMINOPHEN 325 MG TABLET PO PRN (05:46)
[2018-08-14] MEDS: LEVOTHYROXINE 50 MCG TABLET PO SCH (05:46)
[2018-08-14 06:11] VITALS: BP 119/62
[2018-08-14 06:38] LABS: BASO # 0.1 x10^3/uL (0.0-0.2); BASO % 1 % (0-3); EOS # 0.2 x10^3/uL (0.0-0.7); EOS % 3 % (0-3); HEMATOCRIT 40.3 % (36.0-47.0); HEMOGLOBIN 13.5 g/dL (12.0-15.5); LYMPH # 1.4 x10^3/uL (1.0-4.8); LYMPH % 16 % (24-48); MEAN CORPUSCULAR HEMOGLOBIN 30 pg (25-35); MEAN CORPUSCULAR HGB CONC 34 g/dL (31-37); MEAN CORPUSCULAR VOLUME 89 fL (79-100); MONO # 0.5 x10^3/uL (0.0-1.1); MONO % 6 % (0-9); NEUT # 6.5 x10^3uL (1.8-7.7); NEUT % 75 % (31-73); PLATELET COUNT 162 x10^3/uL (140-400); RED BLOOD COUNT 4.56 x10^6/uL (3.50-5.40); RED CELL DISTRIBUTION WIDTH 14.5 % (11.5-14.5); WHITE BLOOD COUNT 8.7 x10^3/uL (4.0-11.0)
[2018-08-14 06:58] LABS: ALBUMIN 2.9 g/dL (3.4-5.0); ALBUMIN/GLOBULIN RATIO 0.7 (1.0-1.7); CALCIUM 8.8 mg/dL (8.5-10.1); CREATININE 1.2 mg/dL (0.6-1.0); GFR 43.9; POTASSIUM 5.1 mmol/L (3.5-5.1); TOTAL BILIRUBIN 0.5 mg/dL (0.2-1.0); TOTAL PROTEIN 6.8 g/dL (6.4-8.2)
[2018-08-14] MEDS: SERTRALINE 50 MG TABLET. PO SCH (07:49)
[2018-08-14] MEDS: CEFPODOXIME PROXETIL 100 MG TABLET PO SCH (07:49)
[2018-08-14] MEDS: GABAPENTIN 100 MG CAPSULE. PO SCH ×3 (07:49→19:57)
[2018-08-14] MEDS: LACTOBACILLUS RHAMNOSUS GG 1 CAPSULE. PO SCH ×2 (07:49→19:58)
[2018-08-14] MEDS: CHOLECALCIFEROL (VITAMIN D3) 1,000 UNIT TABLET PO SCH (07:49)
[2018-08-14] MEDS: LOSARTAN 25 MG TABLET. PO SCH (07:49)
[2018-08-14] MEDS: INSULIN GLARGINE 300 UNITS/3 ML INSULN.PEN. SQ SCH ×2 (07:51→19:59)
[2018-08-14] MEDS: INSULIN LISPRO 300 UNITS/3 ML INSULN.PEN. SQ SCH ×3 (07:52→17:00)
--- NOTE | 2018-08-14 10:48 | NUR ---
Behavior Intervention Response and Plan: BIRP Note: Behavior: Assumed Care of patient, patient located in Day Room at shift change. Patient exhibited the following behavior Compulsive, Restless, Anxious. Brief assessment on rounds of vital signs, medication needs, lab studies, and pain. Treatment plan problems . Intervention: Patient assessed and the following interventions initiated safety checks 15 Minute Checks Cognitive Assessment , Head to toe Assessment , Medications. Response: After interactions and interventions patient responded in the following manner, Disorganized , Restless ,Compliant. Continue to assess behaviors and condition will continue to monitor throughout the shift as needed. Patient educated on ADL's, and hand hygiene. Plan: Continue to monitor Master Treatment Plan for patient's progress toward short term goals of Decreased Anxiety, Improved Mood, [facility] goals to return to previous living setting vs placement. Continue to assess patient for changes in above assessment. Monitor for medication needs, pain, and safety concerns. Hourly rounding performed to ensure safe environment.
[2018-08-14 16:02] VITALS: BP 158/74
[2018-08-14] MEDS: ATORVASTATIN CALCIUM 20 MG TABLET PO SCH (19:58)
[2018-08-14] MEDS: QUEtiapine 50 MG TABLET. PO SCH (19:58)
--- NOTE | 2018-08-14 20:03 | NUR ---
pt up in wc for meals. compliant with meds and cares.
--- NOTE | 2018-08-14 23:18 | PDOC ---
Exam Note: Francisco Note: Please also refer to the separate dictated note~for this date of service dictated separately.~Patient seen individually. Discussed the patient with Nursing staff reviewed the chart.~Reviewed interim history and current functioning. Reviewed vital signs,~Labs/ Radiology~and current medications noted below. Continue current treatment with the changes noted in the dictated addendum note Assessment: Vital Signs: Vital Signs Date Time Temp Pulse Resp B/P (MAP) Pulse Ox O2 Delivery O2 Flow Rate FiO2 08/14/18 16:02 97.4 65 18 158/74 (102) 96 Room Air I&O Intake and Output 08/14/18 07:00 Intake Total 1520 ml Balance 1520 ml Intake Oral 1520 ml # Voids 5 # Bowel Movements 5 Labs: Laboratory Tests Test 08/14/18 06:27 08/14/18 07:17 08/14/18 11:31 08/14/18 16:38 White Blood Count 8.7 x10^3/uL (4.0-11.0) Red Blood Count 4.56 x10^6/uL (3.50-5.40) Hemoglobin 13.5 g/dL (12.0-15.5) Hematocrit 40.3 % (36.0-47.0) Mean Corpuscular Volume 89 fL (79-100) Mean Corpuscular Hemoglobin 30 pg (25-35) Mean Corpuscular Hemoglobin Concent 34 g/dL (31-37) Red Cell Distribution Width 14.5 % (11.5-14.5) Platelet Count 162 x10^3/uL (140-400) Neutrophils (%) (Auto) 75 % (31-73) H Lymphocytes (%) (Auto) 16 % (24-48) L Monocytes (%) (Auto) 6 % (0-9) Eosinophils (%) (Auto) 3 % (0-3) Basophils (%) (Auto) 1 % (0-3) Neutrophils # (Auto) 6.5 x10^3uL (1.8-7.7) Lymphocytes # (Auto) 1.4 x10^3/uL (1.0-4.8) Monocytes # (Auto) 0.5 x10^3/uL (0.0-1.1) Eosinophils # (Auto) 0.2 x10^3/uL (0.0-0.7) Basophils # (Auto) 0.1 x10^3/uL (0.0-0.2) Sodium Level 140 mmol/L (136-145) Potassium Level 5.1 mmol/L (3.5-5.1) Chloride Level 104 mmol/L (98-107) Carbon Dioxide Level 29 mmol/L (21-32) Anion Gap 7 (6-14) Blood Urea Nitrogen 20 mg/dL (7-20) Creatinine 1.2 mg/dL (0.6-1.0) H Estimated GFR (Cockcroft-Gault) 43.9 BUN/Creatinine Ratio 17 (6-20) Glucose Level 157 mg/dL (70-99) H Calcium Level 8.8 mg/dL (8.5-10.1) Total Bilirubin 0.5 mg/dL (0.2-1.0) Aspartate Amino Transferase (AST) 16 U/L (15-37) Alanine Aminotransferase (ALT) 25 U/L (14-59) Alkaline Phosphatase 55 U/L (46-116) Total Protein 6.8 g/dL (6.4-8.2) Albumin 2.9 g/dL (3.4-5.0) L Albumin/Globulin Ratio 0.7 (1.0-1.7) L Glucose (Fingerstick) 140 mg/dL (70-99) H 152 mg/dL (70-99) H 193 mg/dL (70-99) H Test 08/14/18 19:15 Glucose (Fingerstick) 180 mg/dL (70-99) H Current Medications: Meds: Current Medications Doxycycline Hyclate (Vibra-Tab) 100 mg 1X ONCE PO Last administered on at 20:15; Start 07/30/18 at 20:15; Stop 07/30/18 at 20:16; Status DC Acetaminophen (Tylenol) 650 mg PRN Q6HRS PRN PO PAIN / TEMP Last administered on 08/14/18at 05:46; Start 07/30/18 at 22:00 Al Hydroxide/Mg Hydroxide (Mylanta Plus Xs) 15 ml PRN AFTMEALHC PRN PO DYSPEPSIA; Start 07/30/18 at 22:00; Status Cancel Magnesium Hydroxide (Milk Of Magnesia) 2,400 mg PRN QHS PRN PO CONSTIPATION; Start 07/30/18 at 22:00 Influenza Virus Vaccine ([facility] Trivalent Syringe) 0.5 ml ONCE ONCE VAX IM ; Start 07/30/18 at 22:30; Stop 07/30/18 at 22:41; Status DC Influenza Virus Vaccine ([facility] Trivalent Syringe) 0.5 ml ONCE ONCE VAX IM ; Start 07/31/18 at 09:00; Stop 07/31/18 at 09:01; Status DC Citalopram Hydrobromide (CeleXA) 40 mg DAILY PO Last administered on at 08:00; Start 07/31/18 at 09:00; Stop 08/04/18 at 16:58; Status DC Acetaminophen (Tylenol) 325 mg PRN Q4HRS PRN PO PAIN; Start 07/31/18 at 01:30 Vitamin D (Vitamin D3) 1,000 unit DAILY PO Last administered on 08/14/18at 07:49 ; Start 07/31/18 at 09:00 Diphenhydramine HCl (Benadryl) 25 mg PRN TID PRN PO ALLERGIES; Start 07/31/18 at 01:30 Gabapentin (Neurontin) 100 mg TID PO Last administered on 08/14/18at 19:57; Start 07/31/18 at 09:00 Ibuprofen (Motrin) 400 mg PRN Q4HRS PRN PO PAIN Last administered on at 09:26; Start 07/31/18 at 01:30; Stop 07/31/18 at 16:11; Status DC Losartan Potassium (Cozaar) 25 mg DAILY PO Last administered on 08/14/18at 07:49 ; Start 07/31/18 at 09:00 Atorvastatin Calcium (Lipitor) 40 mg HS PO Last administered on 08/14/18at 19:58 ; Start 07/31/18 at 21:00 Non-Formulary Medication (Cranberry ) 400 mg TID PO ; Start 07/31/18 at 09:00; Status UNV Guaifenesin (Robitussin Dm) 15 ml PRN Q6HRS PRN PO COUGH; Start 07/31/18 at 07 :30 Insulin Human Lispro (HumaLOG) 15 units TIDAC SQ Last administered on at 11:30; Start 07/31/18 at 07:30; Stop 07/31/18 at 16:13; Status DC Insulin Glargine (Lantus) 10 units DAILY08 SQ Last administered on 07/31/18at 09:13; Start 07/31/18 at 08:00; Stop 07/31/18 at 14:38; Status DC Insulin Glargine (Lantus) 55 units QHS SQ Last administered on 08/14/18at 19:59 ; Start 07/31/18 at 21:00 Lactobacillus Rhamnosus (Culturelle) 1 cap BID PO Last administered on at 19:58; Start 07/31/18 at 09:00 Levothyroxine Sodium (Synthroid) 50 mcg DAILY07 PO Last administered on at 06:15; Start 07/31/18 at 07:00; Stop 08/04/18 at 14:17; Status DC Al Hydroxide/Mg Hydroxide (Mylanta Plus Xs) 30 ml PRN Q2HR PRN PO HEARTBURN / GAS; Start 07/31/18 at 01:30 Insulin Glargine (Lantus) 10 units DAILY08 SQ ; Start 07/31/18 at 14:38; Stop 07/31/18 at 16:13; Status DC Ciprofloxacin (Cipro) 500 mg BID PO Last administered on 08/04/18at 07:59; Start 07/31/18 at 21:00; Stop 08/04/18 at 16:07; Status DC Insulin Human Lispro (HumaLOG) 20 units TIDAC SQ Last administered on at 12:38; Start 07/31/18 at 16:30; Stop 08/04/18 at 13:35; Status DC Insulin Glargine (Lantus) 25 units DAILY08 SQ Last administered on 08/14/18at 07 :51; Start 08/01/18 at 08:00 Nystatin (Nystop) 1 dori BID TP Last administered on 08/13/18at 07:53; Start at 21:00; Stop 08/13/18 at 20:59; Status DC Insulin Human Lispro (HumaLOG) 20 units TIDWMEALS SQ Last administered on at 17:00; Start 08/04/18 at 17:00 Levothyroxine Sodium (Synthroid) 50 mcg DAILY06 PO Last administered on at 05:46; Start 08/05/18 at 06:00 Cefpodoxime Proxetil (Vantin) 100 mg BID PO Last administered on 08/14/18at 07: 49; Start 08/04/18 at 21:00; Stop 08/14/18 at 20:59; Status DC Sertraline HCl (Zoloft) 50 mg DAILY PO Last administered on 08/14/18at 07:49; Start 08/05/18 at 09:00 Quetiapine Fumarate (SEROquel) 25 mg QHS PO Last administered on 08/08/18at 20: 05; Start 08/05/18 at 21:00; Stop 08/09/18 at 16:30; Status DC Quetiapine Fumarate (SEROquel) 50 mg QHS PO Last administered on 08/14/18at 19: 58; Start 08/09/18 at 21:00 Active Scripts Active Reported Vitamin D3 (Cholecalciferol (Vitamin D3)) 1,000 Unit Tablet 1,000 Unit PO DAILY Tylenol (Acetaminophen) 325 Mg Tablet 325 Mg PO PRN Q4HRS PRN Levothyroxine Sodium 50 Mcg Tablet 50 Mcg PO DAILYAC Robitussin Long-Acting Liq (Dextromethorphan Hbr/Chlor-Mal) 118 Ml Liquid 15 Ml PO PRN Q6HRS Novolog Flexpen (Insulin Aspart) 100 Unit/1 Ml Insuln.pen 15 Unit SQ TIDAC Neurontin (Gabapentin) 100 Mg Capsule 100 Mg PO TID Alum-Mag Hydroxide-Simeth Liq (Mag Hydrox/Al Hydrox/Simeth) 360 Ml Oral.susp 30 Ml PO PRN Q2HR PRN Lipitor (Atorvastatin Calcium) 40 Mg Tablet 40 Mg PO DAILY Levemir Flextouch (Insulin Detemir) 100 Unit/1 Ml Insuln.pen 10 Unit SQ DAILY08 Levemir Flextouch (Insulin Detemir) 100 Unit/1 Ml Insuln.pen 55 Unit SQ QHS Ibuprofen 400 Mg Tablet 400 Mg PO PRN Q4HRS PRN Benadryl (Diphenhydramine Hcl) 25 Mg Capsule 25 Mg PO PRN TID PRN Cranberry 400 Mg Capsule 400 Mg PO TID Cozaar (Losartan Potassium) 25 Mg Tablet 25 Mg PO DAILY Celexa (Citalopram Hydrobromide) 40 Mg Tablet 40 Mg PO DAILY Acidophilus (Lactobacillus Acidophilus) 1 Each Tablet 1 Each PO QID I have reviewed the current psychotropics carefully including drug interactions. Risk benefit ratio favors no change other than as noted in my dictated progress note. Diagnosis: Problems: (1) Anxiety disorder (2) Mild cognitive impairment (3) Impulse control disorder (4) Psychosis, atypical ANGEL MYLES MD Aug 14, 2018 23:17
--- NOTE | 2018-08-15 01:36 | NUR ---
Behavior Intervention Response and Plan: BIRP Note: Behavior: Assumed Care of patient, patient located in Day Room at shift change. Patient exhibited the following behavior Calm, Interactive, Cooperative. Brief assessment on rounds of vital signs, medication needs, lab studies, and pain. Treatment plan problems 1 and 2. Intervention: Patient assessed and the following interventions initiated safety checks 15 Minute Checks Cognitive Assessment , Head to toe Assessment , Medications. Response: After interactions and interventions patient responded in the following manner, Calm , Compliant ,Cooperative. Continue to assess behaviors and condition will continue to monitor throughout the shift as needed. Patient educated on ADL's, and hand hygiene. Plan: Continue to monitor Master Treatment Plan for patient's progress toward short term goals of Decreased Agitation, Decreased Aggression, long-term goals to return to previous living setting vs placement. Continue to assess patient for changes in above assessment. Monitor for medication needs, pain, and safety concerns. Hourly rounding performed to ensure safe environment.
[2018-08-15] MEDS: LEVOTHYROXINE 50 MCG TABLET PO SCH (06:08)
[2018-08-15] MEDS: ACETAMINOPHEN 325 MG TABLET PO PRN (06:08)
[2018-08-15 06:18] VITALS: BP 133/71
[2018-08-15] MEDS: LOSARTAN 25 MG TABLET. PO SCH (07:57)
[2018-08-15] MEDS: LACTOBACILLUS RHAMNOSUS GG 1 CAPSULE. PO SCH ×2 (07:57→19:54)
[2018-08-15] MEDS: SERTRALINE 50 MG TABLET. PO SCH (07:58)
[2018-08-15] MEDS: GABAPENTIN 100 MG CAPSULE. PO SCH ×3 (07:58→19:54)
[2018-08-15] MEDS: CHOLECALCIFEROL (VITAMIN D3) 1,000 UNIT TABLET PO SCH (07:58)
[2018-08-15] MEDS: INSULIN LISPRO 300 UNITS/3 ML INSULN.PEN. SQ SCH ×3 (09:24→17:00)
[2018-08-15] MEDS: INSULIN GLARGINE 300 UNITS/3 ML INSULN.PEN. SQ SCH ×2 (09:25→19:55)
--- NOTE | 2018-08-15 09:50 | NUR ---
Behavior Intervention Response and Plan: BIRP Note: Behavior: Assumed Care of patient, patient located in Day Room at shift change. Patient exhibited the following behavior Compulsive, Restless, Anxious. Brief assessment on rounds of vital signs, medication needs, lab studies, and pain. Treatment plan problems . Intervention: Patient assessed and the following interventions initiated safety checks 15 Minute Checks Cognitive Assessment , Head to toe Assessment , Medications. Response: After interactions and interventions patient responded in the following manner, Disorganized , Restless ,Compliant. Continue to assess behaviors and condition will continue to monitor throughout the shift as needed. Patient educated on ADL's, and hand hygiene. Plan: Continue to monitor Master Treatment Plan for patient's progress toward short term goals of Decreased Anxiety, Improved Mood, snf goals to return to previous living setting vs placement. Continue to assess patient for changes in above assessment. Monitor for medication needs, pain, and safety concerns. Hourly rounding performed to ensure safe environment.
[2018-08-15 16:00] VITALS: BP 139/81
--- NOTE | 2018-08-15 17:11 | NUR ---
pt up in w[place] for meals and groups. in pleasant spirits. compliant with meds and cares.
[2018-08-15] MEDS: QUEtiapine 50 MG TABLET. PO SCH (19:54)
[2018-08-15] MEDS: ATORVASTATIN CALCIUM 20 MG TABLET PO SCH (19:54)
--- NOTE | 2018-08-15 21:53 | NUR ---
Nursing note: Assumed care of pt in the day room. She was sitting quietly but alert. She was compliant w/meds and assessment. No c/o pain, A&OX4
--- NOTE | 2018-08-15 23:18 | PDOC ---
Exam Note: Francisco Note: Please also refer to the separate dictated note~for this date of service dictated separately.~Patient seen individually. Discussed the patient with Nursing staff reviewed the chart.~Reviewed interim history and current functioning. Reviewed vital signs,~Labs/ Radiology~and current medications noted below. Continue current treatment with the changes noted in the dictated addendum note Assessment: Vital Signs: Vital Signs Date Time Temp Pulse Resp B/P (MAP) Pulse Ox O2 Delivery O2 Flow Rate FiO2 08/15/18 16:00 97.5 66 20 139/81 (100) 93 Room Air I&O Intake and Output 08/15/18 07:00 Intake Total 1200 ml Balance 1200 ml Intake Oral 1200 ml # Bowel Movements 1 Labs: Laboratory Tests Test 08/15/18 07:24 08/15/18 11:52 08/15/18 16:42 08/15/18 19:23 Glucose (Fingerstick) 115 mg/dL (70-99) H 192 mg/dL (70-99) H 141 mg/dL (70-99) H 151 mg/dL (70-99) H Current Medications: Meds: Current Medications Doxycycline Hyclate (Vibra-Tab) 100 mg 1X ONCE PO Last administered on at 20:15; Start 07/30/18 at 20:15; Stop 07/30/18 at 20:16; Status DC Acetaminophen (Tylenol) 650 mg PRN Q6HRS PRN PO PAIN / TEMP Last administered on 08/15/18at 06:08; Start 07/30/18 at 22:00 Al Hydroxide/Mg Hydroxide (Mylanta Plus Xs) 15 ml PRN AFTMEALHC PRN PO DYSPEPSIA; Start 07/30/18 at 22:00; Status Cancel Magnesium Hydroxide (Milk Of Magnesia) 2,400 mg PRN QHS PRN PO CONSTIPATION; Start 07/30/18 at 22:00 Influenza Virus Vaccine ([facility] Trivalent Syringe) 0.5 ml ONCE ONCE VAX IM ; Start 07/30/18 at 22:30; Stop 07/30/18 at 22:41; Status DC Influenza Virus Vaccine (Afluria Trivalent Syringe) 0.5 ml ONCE ONCE VAX IM ; Start 07/31/18 at 09:00; Stop 07/31/18 at 09:01; Status DC Citalopram Hydrobromide (CeleXA) 40 mg DAILY PO Last administered on 08:00; Start 07/31/18 at 09:00; Stop 08/04/18 at 16:58; Status DC Acetaminophen (Tylenol) 325 mg PRN Q4HRS PRN PO PAIN; Start 07/31/18 at 01:30 Vitamin D (Vitamin D3) 1,000 unit DAILY PO Last administered on 08/15/18 07:58 ; Start 07/31/18 at 09:00 Diphenhydramine HCl (Benadryl) 25 mg PRN TID PRN PO ALLERGIES; Start 07/31/18 at 01:30 Gabapentin (Neurontin) 100 mg TID PO Last administered on 08/15/18 19:54; Start 07/31/18 at 09:00 Ibuprofen (Motrin) 400 mg PRN Q4HRS PRN PO PAIN Last administered on 09:26; Start 07/31/18 at 01:30; Stop 07/31/18 at 16:11; Status DC Losartan Potassium (Cozaar) 25 mg DAILY PO Last administered on 08/15/18 07:57 ; Start 07/31/18 at 09:00 Atorvastatin Calcium (Lipitor) 40 mg HS PO Last administered on 08/15/18at 19:54 ; Start 07/31/18 at 21:00 Non-Formulary Medication (Cranberry ) 400 mg TID PO ; Start 07/31/18 at 09:00; Status UNV Guaifenesin (Robitussin Dm) 15 ml PRN Q6HRS PRN PO COUGH; Start 07/31/18 at 07 :30 Insulin Human Lispro (HumaLOG) 15 units TIDAC SQ Last administered on at 11:30; Start 07/31/18 at 07:30; Stop 07/31/18 at 16:13; Status DC Insulin Glargine (Lantus) 10 units DAILY08 SQ Last administered on 07/31/18at 09:13; Start 07/31/18 at 08:00; Stop 07/31/18 at 14:38; Status DC Insulin Glargine (Lantus) 55 units QHS SQ Last administered on 08/15/18at 19:55 ; Start 07/31/18 at 21:00 Lactobacillus Rhamnosus (Culturelle) 1 cap BID PO Last administered on at 19:54; Start 07/31/18 at 09:00 Levothyroxine Sodium (Synthroid) 50 mcg DAILY07 PO Last administered on at 06:15; Start 07/31/18 at 07:00; Stop 08/04/18 at 14:17; Status DC Al Hydroxide/Mg Hydroxide (Mylanta Plus Xs) 30 ml PRN Q2HR PRN PO HEARTBURN / GAS; Start 07/31/18 at 01:30 Insulin Glargine (Lantus) 10 units DAILY08 SQ ; Start 07/31/18 at 14:38; Stop 07/31/18 at 16:13; Status DC Ciprofloxacin (Cipro) 500 mg BID PO Last administered on 08/04/18at 07:59; Start 07/31/18 at 21:00; Stop 08/04/18 at 16:07; Status DC Insulin Human Lispro (HumaLOG) 20 units TIDAC SQ Last administered on at 12:38; Start 07/31/18 at 16:30; Stop 08/04/18 at 13:35; Status DC Insulin Glargine (Lantus) 25 units DAILY08 SQ Last administered on 08/15/18at 09 :25; Start 08/01/18 at 08:00 Nystatin (Nystop) 1 dori BID TP Last administered on 08/13/18at 07:53; Start at 21:00; Stop 08/13/18 at 20:59; Status DC Insulin Human Lispro (HumaLOG) 20 units TIDWMEALS SQ Last administered on at 17:00; Start 08/04/18 at 17:00 Levothyroxine Sodium (Synthroid) 50 mcg DAILY06 PO Last administered on at 06:08; Start 08/05/18 at 06:00 Cefpodoxime Proxetil (Vantin) 100 mg BID PO Last administered on 08/14/18at 07: 49; Start 08/04/18 at 21:00; Stop 08/14/18 at 20:59; Status DC Sertraline HCl (Zoloft) 50 mg DAILY PO Last administered on 08/15/18at 07:58; Start 08/05/18 at 09:00 Quetiapine Fumarate (SEROquel) 25 mg QHS PO Last administered on 08/08/18at 20: 05; Start 08/05/18 at 21:00; Stop 08/09/18 at 16:30; Status DC Quetiapine Fumarate (SEROquel) 50 mg QHS PO Last administered on 08/15/18at 19: 54; Start 08/09/18 at 21:00 Active Scripts Active Reported Vitamin D3 (Cholecalciferol (Vitamin D3)) 1,000 Unit Tablet 1,000 Unit PO DAILY Tylenol (Acetaminophen) 325 Mg Tablet 325 Mg PO PRN Q4HRS PRN Levothyroxine Sodium 50 Mcg Tablet 50 Mcg PO DAILYAC Robitussin Long-Acting Liq (Dextromethorphan Hbr/Chlor-Mal) 118 Ml Liquid 15 Ml PO PRN Q6HRS Novolog Flexpen (Insulin Aspart) 100 Unit/1 Ml Insuln.pen 15 Unit SQ TIDAC Neurontin (Gabapentin) 100 Mg Capsule 100 Mg PO TID Alum-Mag Hydroxide-Simeth Liq (Mag Hydrox/Al Hydrox/Simeth) 360 Ml Oral.susp 30 Ml PO PRN Q2HR PRN Lipitor (Atorvastatin Calcium) 40 Mg Tablet 40 Mg PO DAILY Levemir Flextouch (Insulin Detemir) 100 Unit/1 Ml Insuln.pen 10 Unit SQ DAILY08 Levemir Flextouch (Insulin Detemir) 100 Unit/1 Ml Insuln.pen 55 Unit SQ QHS Ibuprofen 400 Mg Tablet 400 Mg PO PRN Q4HRS PRN Benadryl (Diphenhydramine Hcl) 25 Mg Capsule 25 Mg PO PRN TID PRN Cranberry 400 Mg Capsule 400 Mg PO TID Cozaar (Losartan Potassium) 25 Mg Tablet 25 Mg PO DAILY Celexa (Citalopram Hydrobromide) 40 Mg Tablet 40 Mg PO DAILY Acidophilus (Lactobacillus Acidophilus) 1 Each Tablet 1 Each PO QID I have reviewed the current psychotropics carefully including drug interactions. Risk benefit ratio favors no change other than as noted in my dictated progress note. Diagnosis: Problems: (1) Anxiety disorder (2) Mild cognitive impairment (3) Impulse control disorder (4) Psychosis, atypical ANGEL MYLES MD Aug 15, 2018 23:18
[2018-08-16] MEDS: LEVOTHYROXINE 50 MCG TABLET PO SCH (05:56)
[2018-08-16 06:26] VITALS: BP 119/74
--- NOTE | 2018-08-16 09:36 | PN ---
DATE: 08/13/2018 PSYCHIATRIC PROGRESS NOTE This late entry 08/13/2018 covers elements, not covered in my initial note. SUBJECTIVE: I met with the patient in the evening. The patient slept 7-1/4 hours previous evening. She remains in a wheelchair. REVIEW OF SYSTEMS: No CV, , pulmonary, eye, ENT system symptoms on review. MENTAL STATUS EXAM: Reasonably oriented. Speech has some latency, coherent. Abstraction fair, computation impaired, language function intact. Attention span short. No sexually inappropriate behaviors noted. LABORATORY DATA: Reviewed. IMPRESSION: Unchanged from initial note. PLAN: No change from initial note. MAN Viry MYLES MD DR: ARIANA/manjit JOB#: [id number] / [id number]
[2018-08-16] MEDS: GABAPENTIN 100 MG CAPSULE. PO SCH ×3 (10:24→19:35)
[2018-08-16] MEDS: LOSARTAN 25 MG TABLET. PO SCH (10:24)
[2018-08-16] MEDS: CHOLECALCIFEROL (VITAMIN D3) 1,000 UNIT TABLET PO SCH (10:24)
[2018-08-16] MEDS: LACTOBACILLUS RHAMNOSUS GG 1 CAPSULE. PO SCH ×2 (10:25→19:34)
[2018-08-16] MEDS: SERTRALINE 50 MG TABLET. PO SCH (10:25)
[2018-08-16] MEDS: INSULIN LISPRO 300 UNITS/3 ML INSULN.PEN. SQ SCH ×3 (10:26→17:12)
[2018-08-16] MEDS: INSULIN GLARGINE 300 UNITS/3 ML INSULN.PEN. SQ SCH ×2 (10:27→20:08)
--- NOTE | 2018-08-16 14:54 | NUR ---
Behavior Intervention Response and Plan: BIRP Note: Behavior: Assumed Care of patient, patient located in Day Room at shift change. Patient exhibited the following behavior Calm, Disorganized, Compliant. Brief assessment on rounds of vital signs, medication needs, lab studies, and pain. Treatment plan problems 1 and 2. Intervention: Patient assessed and the following interventions initiated safety checks 15 Minute Checks Cognitive Assessment , Head to toe Assessment , Medications. Response: After interactions and interventions patient responded in the following manner, Calm , Compliant ,Cooperative. Continue to assess behaviors and condition will continue to monitor throughout the shift as needed. Patient educated on ADL's, and hand hygiene. 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 Continue to assess patient for changes in above assessment. Monitor for medication needs, pain, and safety concerns. Hourly rounding performed to ensure safe environment.
[2018-08-16 15:21] VITALS: BP 109/65
[2018-08-16] MEDS: ATORVASTATIN CALCIUM 20 MG TABLET PO SCH (19:34)
[2018-08-16] MEDS: QUEtiapine 50 MG TABLET. PO SCH (19:35)
--- NOTE | 2018-08-16 22:06 | PN ---
DATE: 08/14/2018 PSYCHIATRIC PROGRESS NOTE This late entry 08/14/2018 covers elements not covered in my initial note. SUBJECTIVE: I met with the patient in the evening. The patient slept 6-1/2 hours previous night. She has been fairly appropriate on the unit. No inappropriate sexual behaviors noted. REVIEW OF SYSTEMS: Ambulation impaired, in wheelchair. No CV, , pulmonary, eye, ENT system symptoms on review. MENTAL STATUS EXAM: Oriented to herself and situation. Speech has some latency, coherent. Abstraction fair, computation impaired, language function intact. Attention span short. Short-term memory is impaired. No active suicidal or homicidal ideation. No inappropriate sexual behaviors and I addressed once again with her at some length circumstances prompting admission with respect to her sexual behaviors device ways for her to be able to be aware of this when she returns back. LABORATORY DATA: Reviewed. IMPRESSION: Bipolar 1 disorder, unspecified; major neurocognitive disorder, early Alzheimer, vascular; anxiety disorder, unspecified. PLAN: Continue psychotropics from initial note, Zoloft 50 mg a day, Seroquel 50 mg at bedtime. MAN Viry MYLES MD DR: ARIANA/manjit JOB#: [id number] / [id number]
--- NOTE | 2018-08-16 22:25 | NUR ---
Nursing note: Assumed care of pt in the day room. She was calm, compliant, and pleasant. A&OX3, no c/o pain.
--- NOTE | 2018-08-16 23:17 | PDOC ---
Exam Note: Francisco Note: Please also refer to the separate dictated note~for this date of service dictated separately.~Patient seen individually. Discussed the patient with Nursing staff reviewed the chart.~Reviewed interim history and current functioning. Reviewed vital signs,~Labs/ Radiology~and current medications noted below. Continue current treatment with the changes noted in the dictated addendum note Assessment: Vital Signs: Vital Signs Date Time Temp Pulse Resp B/P (MAP) Pulse Ox O2 Delivery O2 Flow Rate FiO2 08/16/18 15:21 97.0 71 20 109/65 (80) 98 Room Air I&O Intake and Output 08/16/18 07:00 Intake Total 1080 ml Balance 1080 ml Intake Oral 1080 ml # Voids 1 # Bowel Movements 4 Labs: Laboratory Tests Test 08/16/18 07:35 08/16/18 11:34 08/16/18 16:24 08/16/18 19:41 Glucose (Fingerstick) 116 mg/dL (70-99) H 157 mg/dL (70-99) H 81 mg/dL (70-99) 156 mg/dL (70-99) H Current Medications: Meds: Current Medications Doxycycline Hyclate (Vibra-Tab) 100 mg 1X ONCE PO Last administered on at 20:15; Start 07/30/18 at 20:15; Stop 07/30/18 at 20:16; Status DC Acetaminophen (Tylenol) 650 mg PRN Q6HRS PRN PO PAIN / TEMP Last administered on 08/15/18at 06:08; Start 07/30/18 at 22:00 Al Hydroxide/Mg Hydroxide (Mylanta Plus Xs) 15 ml PRN AFTMEALHC PRN PO DYSPEPSIA; Start 07/30/18 at 22:00; Status Cancel Magnesium Hydroxide (Milk Of Magnesia) 2,400 mg PRN QHS PRN PO CONSTIPATION; Start 07/30/18 at 22:00 Influenza Virus Vaccine (Afluria Trivalent Syringe) 0.5 ml ONCE ONCE VAX IM ; Start 07/30/18 at 22:30; Stop 07/30/18 at 22:41; Status DC Influenza Virus Vaccine (Afluria Trivalent Syringe) 0.5 ml ONCE ONCE VAX IM ; Start 07/31/18 at 09:00; Stop 07/31/18 at 09:01; Status DC Citalopram Hydrobromide (CeleXA) 40 mg DAILY PO Last administered on at 08:00; Start 07/31/18 at 09:00; Stop 08/04/18 at 16:58; Status DC Acetaminophen (Tylenol) 325 mg PRN Q4HRS PRN PO PAIN; Start 07/31/18 at 01:30 Vitamin D (Vitamin D3) 1,000 unit DAILY PO Last administered on 08/16/18at 10:24 ; Start 07/31/18 at 09:00 Diphenhydramine HCl (Benadryl) 25 mg PRN TID PRN PO ALLERGIES; Start 07/31/18 at 01:30 Gabapentin (Neurontin) 100 mg TID PO Last administered on 08/16/18at 19:35; Start 07/31/18 at 09:00 Ibuprofen (Motrin) 400 mg PRN Q4HRS PRN PO PAIN Last administered on 09:26; Start 07/31/18 at 01:30; Stop 07/31/18 at 16:11; Status DC Losartan Potassium (Cozaar) 25 mg DAILY PO Last administered on 08/16/18 10:24 ; Start 07/31/18 at 09:00 Atorvastatin Calcium (Lipitor) 40 mg HS PO Last administered on 08/16/18at 19:34 ; Start 07/31/18 at 21:00 Non-Formulary Medication (Cranberry ) 400 mg TID PO ; Start 07/31/18 at 09:00; Status UNV Guaifenesin (Robitussin Dm) 15 ml PRN Q6HRS PRN PO COUGH; Start 07/31/18 at 07 :30 Insulin Human Lispro (HumaLOG) 15 units TIDAC SQ Last administered on at 11:30; Start 07/31/18 at 07:30; Stop 07/31/18 at 16:13; Status DC Insulin Glargine (Lantus) 10 units DAILY08 SQ Last administered on 07/31/18at 09:13; Start 07/31/18 at 08:00; Stop 07/31/18 at 14:38; Status DC Insulin Glargine (Lantus) 55 units QHS SQ Last administered on 08/16/18at 20:08 ; Start 07/31/18 at 21:00 Lactobacillus Rhamnosus (Culturelle) 1 cap BID PO Last administered on at 19:34; Start 07/31/18 at 09:00 Levothyroxine Sodium (Synthroid) 50 mcg DAILY07 PO Last administered on at 06:15; Start 07/31/18 at 07:00; Stop 08/04/18 at 14:17; Status DC Al Hydroxide/Mg Hydroxide (Mylanta Plus Xs) 30 ml PRN Q2HR PRN PO HEARTBURN / GAS; Start 07/31/18 at 01:30 Insulin Glargine (Lantus) 10 units DAILY08 SQ ; Start 07/31/18 at 14:38; Stop 07/31/18 at 16:13; Status DC Ciprofloxacin (Cipro) 500 mg BID PO Last administered on 08/04/18at 07:59; Start 07/31/18 at 21:00; Stop 08/04/18 at 16:07; Status DC Insulin Human Lispro (HumaLOG) 20 units TIDAC SQ Last administered on at 12:38; Start 07/31/18 at 16:30; Stop 08/04/18 at 13:35; Status DC Insulin Glargine (Lantus) 25 units DAILY08 SQ Last administered on 08/16/18at 10 :27; Start 08/01/18 at 08:00 Nystatin (Nystop) 1 dori BID TP Last administered on 08/13/18at 07:53; Start at 21:00; Stop 08/13/18 at 20:59; Status DC Insulin Human Lispro (HumaLOG) 20 units TIDWMEALS SQ Last administered on at 17:12; Start 08/04/18 at 17:00 Levothyroxine Sodium (Synthroid) 50 mcg DAILY06 PO Last administered on at 05:56; Start 08/05/18 at 06:00 Cefpodoxime Proxetil (Vantin) 100 mg BID PO Last administered on 08/14/18at 07: 49; Start 08/04/18 at 21:00; Stop 08/14/18 at 20:59; Status DC Sertraline HCl (Zoloft) 50 mg DAILY PO Last administered on 08/16/18at 10:25; Start 08/05/18 at 09:00 Quetiapine Fumarate (SEROquel) 25 mg QHS PO Last administered on 08/08/18at 20: 05; Start 08/05/18 at 21:00; Stop 08/09/18 at 16:30; Status DC Quetiapine Fumarate (SEROquel) 50 mg QHS PO Last administered on 08/16/18at 19: 35; Start 08/09/18 at 21:00 Active Scripts Active Reported Vitamin D3 (Cholecalciferol (Vitamin D3)) 1,000 Unit Tablet 1,000 Unit PO DAILY Tylenol (Acetaminophen) 325 Mg Tablet 325 Mg PO PRN Q4HRS PRN Levothyroxine Sodium 50 Mcg Tablet 50 Mcg PO DAILYAC Robitussin Long-Acting Liq (Dextromethorphan Hbr/Chlor-Mal) 118 Ml Liquid 15 Ml PO PRN Q6HRS Novolog Flexpen (Insulin Aspart) 100 Unit/1 Ml Insuln.pen 15 Unit SQ TIDAC Neurontin (Gabapentin) 100 Mg Capsule 100 Mg PO TID Alum-Mag Hydroxide-Simeth Liq (Mag Hydrox/Al Hydrox/Simeth) 360 Ml Oral.susp 30 Ml PO PRN Q2HR PRN Lipitor (Atorvastatin Calcium) 40 Mg Tablet 40 Mg PO DAILY Levemir Flextouch (Insulin Detemir) 100 Unit/1 Ml Insuln.pen 10 Unit SQ DAILY08 Levemir Flextouch (Insulin Detemir) 100 Unit/1 Ml Insuln.pen 55 Unit SQ QHS Ibuprofen 400 Mg Tablet 400 Mg PO PRN Q4HRS PRN Benadryl (Diphenhydramine Hcl) 25 Mg Capsule 25 Mg PO PRN TID PRN Cranberry 400 Mg Capsule 400 Mg PO TID Cozaar (Losartan Potassium) 25 Mg Tablet 25 Mg PO DAILY Celexa (Citalopram Hydrobromide) 40 Mg Tablet 40 Mg PO DAILY Acidophilus (Lactobacillus Acidophilus) 1 Each Tablet 1 Each PO QID I have reviewed the current psychotropics carefully including drug interactions. Risk benefit ratio favors no change other than as noted in my dictated progress note. Diagnosis: Problems: (1) Anxiety disorder (2) Mild cognitive impairment (3) Impulse control disorder (4) Psychosis, atypical ANGEL MYLES MD Aug 16, 2018 23:17
--- NOTE | 2018-08-17 00:54 | PN ---
DATE: 08/15/2018 This is a late entry for 08/15/2018 covers elements not covered in my initial note. SUBJECTIVE: I met with the patient in the evening. The patient slept 7-1/4 hours previous evening. She has been appropriate on the unit, not sexually inappropriate or aggressive. REVIEW OF SYSTEMS: Ambulation impaired, in wheelchair. No CV, , pulmonary, eye, ENT system symptoms on review. MENTAL STATUS EXAM: Oriented to herself and situation. Speech has some latency, coherent. Abstraction fair, computation impaired, language function intact, attention span short. Mood and affect somewhat withdrawn at times. LABORATORY DATA: Reviewed. IMPRESSION: Major neurocognitive disorder, early Alzheimer, vascular with delusion, bipolar 1 disorder, unspecified. PLAN: No change from initial note. MAN Viyr MYLES MD DR: ARIANA/manjit JOB#: [id number] / [id number]
[2018-08-17] MEDS: LEVOTHYROXINE 50 MCG TABLET PO SCH (06:16)
[2018-08-17 06:38] VITALS: BP 112/65
[2018-08-17] MEDS: INSULIN LISPRO 300 UNITS/3 ML INSULN.PEN. SQ SCH ×3 (08:00→17:21)
[2018-08-17] MEDS: GABAPENTIN 100 MG CAPSULE. PO SCH ×3 (09:35→19:34)
[2018-08-17] MEDS: SERTRALINE 50 MG TABLET. PO SCH (09:35)
[2018-08-17] MEDS: LOSARTAN 25 MG TABLET. PO SCH (09:36)
[2018-08-17] MEDS: LACTOBACILLUS RHAMNOSUS GG 1 CAPSULE. PO SCH ×2 (09:36→19:34)
[2018-08-17] MEDS: CHOLECALCIFEROL (VITAMIN D3) 1,000 UNIT TABLET PO SCH (09:36)
[2018-08-17] MEDS: INSULIN GLARGINE 300 UNITS/3 ML INSULN.PEN. SQ SCH ×2 (09:50→19:35)
--- NOTE | 2018-08-17 09:55 | NUR ---
Behavior Intervention Response and Plan: BIRP Note: Behavior: Assumed Care of patient, patient located in Day Room at shift change. Patient exhibited the following behavior Interactive, Disorganized, Compulsive. Brief assessment on rounds of vital signs, medication needs, lab studies, and pain. Treatment plan problems 1 & 2. Intervention: Patient assessed and the following interventions initiated safety checks 15 Minute Checks Cognitive Assessment , Head to toe Assessment , Medications. Response: After interactions and interventions patient responded in the following manner, Calm , Disorganized ,Compliant. Continue to assess behaviors and condition will continue to monitor throughout the shift as needed. Patient educated on ADL's, and hand hygiene. 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 Continue to assess patient for changes in above assessment. Monitor for medication needs, pain, and safety concerns. Hourly rounding performed to ensure safe environment.
[2018-08-17 16:16] VITALS: BP 145/80
[2018-08-17] MEDS: QUEtiapine 50 MG TABLET. PO SCH (19:34)
[2018-08-17] MEDS: ATORVASTATIN CALCIUM 20 MG TABLET PO SCH (19:34)
--- NOTE | 2018-08-17 21:00 | NUR ---
Nursing note: Assumed care of pt in the day room. She was calm and compliant w/meds and assessment. No c/o pain. No agitation.
[2018-08-18] MEDS: LEVOTHYROXINE 50 MCG TABLET PO SCH (05:37)
[2018-08-18 06:07] VITALS: BP 100/64
[2018-08-18] MEDS: INSULIN LISPRO 300 UNITS/3 ML INSULN.PEN. SQ SCH ×3 (08:00→17:23)
[2018-08-18] MEDS: LOSARTAN 25 MG TABLET. PO SCH (08:12)
[2018-08-18] MEDS: SERTRALINE 50 MG TABLET. PO SCH (08:12)
[2018-08-18] MEDS: CHOLECALCIFEROL (VITAMIN D3) 1,000 UNIT TABLET PO SCH (08:12)
[2018-08-18] MEDS: LACTOBACILLUS RHAMNOSUS GG 1 CAPSULE. PO SCH ×2 (08:12→21:11)
[2018-08-18] MEDS: GABAPENTIN 100 MG CAPSULE. PO SCH ×3 (08:12→21:11)
[2018-08-18] MEDS: INSULIN GLARGINE 300 UNITS/3 ML INSULN.PEN. SQ SCH ×2 (08:14→21:12)
--- NOTE | 2018-08-18 08:50 | NUR ---
Behavior Intervention Response and Plan: BIRP Note: Behavior: Assumed Care of patient, patient located in Day Room at shift change. Patient exhibited the following behavior Interactive, Disorganized, Compulsive. Brief assessment on rounds of vital signs, medication needs, lab studies, and pain. Treatment plan problems 1 & 2. Intervention: Patient assessed and the following interventions initiated safety checks 15 Minute Checks Cognitive Assessment , Head to toe Assessment , Medications. Response: After interactions and interventions patient responded in the following manner, Calm , Disorganized ,Compliant. Continue to assess behaviors and condition will continue to monitor throughout the shift as needed. Patient educated on ADL's, and hand hygiene. 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 Continue to assess patient for changes in above assessment. Monitor for medication needs, pain, and safety concerns. Hourly rounding performed to ensure safe environment.
--- NOTE | 2018-08-18 08:58 | PN ---
DATE: 08/16/2018 This late entry, 08/16/2018, covers elements not covered in my initial note. SUBJECTIVE: I met with the patient in the evening. The patient slept 7-3/4 hours previous night. He has been pleasant, cooperative. Short-term memory is impaired. REVIEW OF SYSTEMS: Ambulation impaired, in wheelchair. No CV, , pulmonary, eye, ENT system symptoms on review. MENTAL STATUS EXAM: Reasonably oriented. Speech is coherent, has some latency. Abstraction fair, computation impaired, language function intact, attention span short. Mood and affect lability is improved. LABORATORY DATA: Reviewed. IMPRESSION: Bipolar I disorder, unspecified; major neurocognitive disorder, early Alzheimer, vascular with delusions, in partial remission. Rest unchanged. PLAN: Continue psychotropics from initial note. Possible transition back to skilled nursing in a day or two. MAN Viry MYLES MD DR: ARIANA/manjit JOB#: [id number] / [id number]
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
[2018-08-18 16:44] VITALS: BP 110/75
[2018-08-18] MEDS: QUEtiapine 50 MG TABLET. PO SCH (21:11)
[2018-08-18] MEDS: ATORVASTATIN CALCIUM 20 MG TABLET PO SCH (21:11)
--- NOTE | 2018-08-18 22:55 | PDOC ---
Exam Note: Francisco Note: Late entry for DOS 08/17/2018. Please also refer to the separate dictated note~ for this date of service dictated separately.~Patient seen individually. Discussed the patient with Nursing staff reviewed the chart.~Reviewed interim history and current functioning. Reviewed vital signs,~Labs/ Radiology~and current medications noted below. Continue current treatment with the changes noted in the dictated addendum note Assessment: Vital Signs: VS - Last 72 Hours, by Label Date Time Temp Pulse Resp B/P (MAP) Pulse Ox O2 Delivery O2 Flow Rate FiO2 08/18/18 16:44 98.4 58 20 110/75 (87) 98 08/18/18 08:12 69 100/64 08/18/18 06:07 98.9 69 24 100/64 (76) 95 08/17/18 16:16 97.4 71 20 145/80 (101) 96 Room Air 08/17/18 09:36 71 112/65 08/17/18 06:38 97.4 71 18 112/65 (81) 97 Room Air 08/16/18 15:21 97.0 71 20 109/65 (80) 98 Room Air 08/16/18 10:24 73 119/74 08/16/18 06:26 97.0 73 24 119/74 (89) 96 Vital Signs Date Time Temp Pulse Resp B/P (MAP) Pulse Ox O2 Delivery O2 Flow Rate FiO2 08/18/18 16:44 98.4 58 20 110/75 (87) 98 08/17/18 16:16 Room Air I&O Intake and Output 08/18/18 07:00 Intake Total 1200 ml Balance 1200 ml Intake Oral 1200 ml Labs: Laboratory Tests Test 08/18/18 08:04 08/18/18 11:51 08/18/18 17:04 08/18/18 19:21 Glucose (Fingerstick) 87 mg/dL (70-99) 170 mg/dL (70-99) H 183 mg/dL (70-99) H 137 mg/dL (70-99) H Current Medications: Meds: Current Medications Doxycycline Hyclate (Vibra-Tab) 100 mg 1X ONCE PO Last administered on at 20:15; Start 07/30/18 at 20:15; Stop 07/30/18 at 20:16; Status DC Acetaminophen (Tylenol) 650 mg PRN Q6HRS PRN PO PAIN / TEMP Last administered on 08/15/18at 06:08; Start 07/30/18 at 22:00 Al Hydroxide/Mg Hydroxide (Mylanta Plus Xs) 15 ml PRN AFTMEALHC PRN PO DYSPEPSIA; Start 07/30/18 at 22:00; Status Cancel Magnesium Hydroxide (Milk Of Magnesia) 2,400 mg PRN QHS PRN PO CONSTIPATION; Start 07/30/18 at 22:00 Influenza Virus Vaccine (Vengo Labsuria Trivalent Syringe) 0.5 ml ONCE ONCE VAX IM ; Start 07/30/18 at 22:30; Stop 07/30/18 at 22:41; Status DC Influenza Virus Vaccine (Vengo Labsuria Trivalent Syringe) 0.5 ml ONCE ONCE VAX IM ; Start 07/31/18 at 09:00; Stop 07/31/18 at 09:01; Status DC Citalopram Hydrobromide (CeleXA) 40 mg DAILY PO Last administered on at 08:00; Start 07/31/18 at 09:00; Stop 08/04/18 at 16:58; Status DC Acetaminophen (Tylenol) 325 mg PRN Q4HRS PRN PO PAIN; Start 07/31/18 at 01:30 Vitamin D (Vitamin D3) 1,000 unit DAILY PO Last administered on 08/18/18at 08:12 ; Start 07/31/18 at 09:00 Diphenhydramine HCl (Benadryl) 25 mg PRN TID PRN PO ALLERGIES; Start 07/31/18 at 01:30 Gabapentin (Neurontin) 100 mg TID PO Last administered on 08/18/18at 21:11; Start 07/31/18 at 09:00 Ibuprofen (Motrin) 400 mg PRN Q4HRS PRN PO PAIN Last administered on at 09:26; Start 07/31/18 at 01:30; Stop 07/31/18 at 16:11; Status DC Losartan Potassium (Cozaar) 25 mg DAILY PO Last administered on 08/18/18at 08:12 ; Start 07/31/18 at 09:00 Atorvastatin Calcium (Lipitor) 40 mg HS PO Last administered on 08/18/18at 21:11 ; Start 07/31/18 at 21:00 Non-Formulary Medication (Cranberry ) 400 mg TID PO ; Start 07/31/18 at 09:00; Status UNV Guaifenesin (Robitussin Dm) 15 ml PRN Q6HRS PRN PO COUGH; Start 07/31/18 at 07 :30 Insulin Human Lispro (HumaLOG) 15 units TIDAC SQ Last administered on at 11:30; Start 07/31/18 at 07:30; Stop 07/31/18 at 16:13; Status DC Insulin Glargine (Lantus) 10 units DAILY08 SQ Last administered on 07/31/18at 09:13; Start 07/31/18 at 08:00; Stop 07/31/18 at 14:38; Status DC Insulin Glargine (Lantus) 55 units QHS SQ Last administered on 08/18/18at 21:12 ; Start 07/31/18 at 21:00 Lactobacillus Rhamnosus (Culturelle) 1 cap BID PO Last administered on at 21:11; Start 07/31/18 at 09:00 Levothyroxine Sodium (Synthroid) 50 mcg DAILY07 PO Last administered on at 06:15; Start 07/31/18 at 07:00; Stop 08/04/18 at 14:17; Status DC Al Hydroxide/Mg Hydroxide (Mylanta Plus Xs) 30 ml PRN Q2HR PRN PO HEARTBURN / GAS; Start 07/31/18 at 01:30 Insulin Glargine (Lantus) 10 units DAILY08 SQ ; Start 07/31/18 at 14:38; Stop 07/31/18 at 16:13; Status DC Ciprofloxacin (Cipro) 500 mg BID PO Last administered on 08/04/18at 07:59; Start 07/31/18 at 21:00; Stop 08/04/18 at 16:07; Status DC Insulin Human Lispro (HumaLOG) 20 units TIDAC SQ Last administered on at 12:38; Start 07/31/18 at 16:30; Stop 08/04/18 at 13:35; Status DC Insulin Glargine (Lantus) 25 units DAILY08 SQ Last administered on 08/18/18at 08 :14; Start 08/01/18 at 08:00 Nystatin (Nystop) 1 dori BID TP Last administered on 08/13/18at 07:53; Start at 21:00; Stop 08/13/18 at 20:59; Status DC Insulin Human Lispro (HumaLOG) 20 units TIDWMEALS SQ Last administered on at 17:23; Start 08/04/18 at 17:00 Levothyroxine Sodium (Synthroid) 50 mcg DAILY06 PO Last administered on at 05:37; Start 08/05/18 at 06:00 Cefpodoxime Proxetil (Vantin) 100 mg BID PO Last administered on 08/14/18at 07: 49; Start 08/04/18 at 21:00; Stop 08/14/18 at 20:59; Status DC Sertraline HCl (Zoloft) 50 mg DAILY PO Last administered on 08/18/18at 08:12; Start 08/05/18 at 09:00 Quetiapine Fumarate (SEROquel) 25 mg QHS PO Last administered on 08/08/18at 20: 05; Start 08/05/18 at 21:00; Stop 08/09/18 at 16:30; Status DC Quetiapine Fumarate (SEROquel) 50 mg QHS PO Last administered on 08/18/18at 21: 11; Start 08/09/18 at 21:00 Active Scripts Active Reported Vitamin D3 (Cholecalciferol (Vitamin D3)) 1,000 Unit Tablet 1,000 Unit PO DAILY Tylenol (Acetaminophen) 325 Mg Tablet 325 Mg PO PRN Q4HRS PRN Levothyroxine Sodium 50 Mcg Tablet 50 Mcg PO DAILYAC Robitussin Long-Acting Liq (Dextromethorphan Hbr/Chlor-Mal) 118 Ml Liquid 15 Ml PO PRN Q6HRS Novolog Flexpen (Insulin Aspart) 100 Unit/1 Ml Insuln.pen 15 Unit SQ TIDAC Neurontin (Gabapentin) 100 Mg Capsule 100 Mg PO TID Alum-Mag Hydroxide-Simeth Liq (Mag Hydrox/Al Hydrox/Simeth) 360 Ml Oral.susp 30 Ml PO PRN Q2HR PRN Lipitor (Atorvastatin Calcium) 40 Mg Tablet 40 Mg PO DAILY Levemir Flextouch (Insulin Detemir) 100 Unit/1 Ml Insuln.pen 10 Unit SQ DAILY08 Levemir Flextouch (Insulin Detemir) 100 Unit/1 Ml Insuln.pen 55 Unit SQ QHS Ibuprofen 400 Mg Tablet 400 Mg PO PRN Q4HRS PRN Benadryl (Diphenhydramine Hcl) 25 Mg Capsule 25 Mg PO PRN TID PRN Cranberry 400 Mg Capsule 400 Mg PO TID Cozaar (Losartan Potassium) 25 Mg Tablet 25 Mg PO DAILY Celexa (Citalopram Hydrobromide) 40 Mg Tablet 40 Mg PO DAILY Acidophilus (Lactobacillus Acidophilus) 1 Each Tablet 1 Each PO QID I have reviewed the current psychotropics carefully including drug interactions. Risk benefit ratio favors no change other than as noted in my dictated progress note. Diagnosis: Problems: (1) Anxiety disorder (2) Mild cognitive impairment (3) Impulse control disorder (4) Psychosis, atypical ANGEL MYLES MD Aug 18, 2018 22:55
--- NOTE | 2018-08-18 23:21 | PDOC ---
Exam Note: Francisco Note: Please also refer to the separate dictated note~for this date of service dictated separately.~Patient seen individually. Discussed the patient with Nursing staff reviewed the chart.~Reviewed interim history and current functioning. Reviewed vital signs,~Labs/ Radiology~and current medications noted below. Continue current treatment with the changes noted in the dictated addendum note Assessment: Vital Signs: Vital Signs Date Time Temp Pulse Resp B/P (MAP) Pulse Ox O2 Delivery O2 Flow Rate FiO2 08/18/18 16:44 98.4 58 20 110/75 (87) 98 08/17/18 16:16 Room Air I&O Intake and Output 08/18/18 07:00 Intake Total 1200 ml Balance 1200 ml Intake Oral 1200 ml Labs: Laboratory Tests Test 08/18/18 08:04 08/18/18 11:51 08/18/18 17:04 08/18/18 19:21 Glucose (Fingerstick) 87 mg/dL (70-99) 170 mg/dL (70-99) H 183 mg/dL (70-99) H 137 mg/dL (70-99) H Current Medications: Meds: Current Medications Doxycycline Hyclate (Vibra-Tab) 100 mg 1X ONCE PO Last administered on at 20:15; Start 07/30/18 at 20:15; Stop 07/30/18 at 20:16; Status DC Acetaminophen (Tylenol) 650 mg PRN Q6HRS PRN PO PAIN / TEMP Last administered on 08/15/18at 06:08; Start 07/30/18 at 22:00 Al Hydroxide/Mg Hydroxide (Mylanta Plus Xs) 15 ml PRN AFTMEALHC PRN PO DYSPEPSIA; Start 07/30/18 at 22:00; Status Cancel Magnesium Hydroxide (Milk Of Magnesia) 2,400 mg PRN QHS PRN PO CONSTIPATION; Start 07/30/18 at 22:00 Influenza Virus Vaccine (Afluria Trivalent Syringe) 0.5 ml ONCE ONCE VAX IM ; Start 07/30/18 at 22:30; Stop 07/30/18 at 22:41; Status DC Influenza Virus Vaccine (Afluria Trivalent Syringe) 0.5 ml ONCE ONCE VAX IM ; Start 07/31/18 at 09:00; Stop 07/31/18 at 09:01; Status DC Citalopram Hydrobromide (CeleXA) 40 mg DAILY PO Last administered on 08:00; Start 07/31/18 at 09:00; Stop 08/04/18 at 16:58; Status DC Acetaminophen (Tylenol) 325 mg PRN Q4HRS PRN PO PAIN; Start 07/31/18 at 01:30 Vitamin D (Vitamin D3) 1,000 unit DAILY PO Last administered on 08/18/18at 08:12 ; Start 07/31/18 at 09:00 Diphenhydramine HCl (Benadryl) 25 mg PRN TID PRN PO ALLERGIES; Start 07/31/18 at 01:30 Gabapentin (Neurontin) 100 mg TID PO Last administered on 08/18/18at 21:11; Start 07/31/18 at 09:00 Ibuprofen (Motrin) 400 mg PRN Q4HRS PRN PO PAIN Last administered on 09:26; Start 07/31/18 at 01:30; Stop 07/31/18 at 16:11; Status DC Losartan Potassium (Cozaar) 25 mg DAILY PO Last administered on 08/18/18 08:12 ; Start 07/31/18 at 09:00 Atorvastatin Calcium (Lipitor) 40 mg HS PO Last administered on 08/18/18at 21:11 ; Start 07/31/18 at 21:00 Non-Formulary Medication (Cranberry ) 400 mg TID PO ; Start 07/31/18 at 09:00; Status UNV Guaifenesin (Robitussin Dm) 15 ml PRN Q6HRS PRN PO COUGH; Start 07/31/18 at 07 :30 Insulin Human Lispro (HumaLOG) 15 units TIDAC SQ Last administered on at 11:30; Start 07/31/18 at 07:30; Stop 07/31/18 at 16:13; Status DC Insulin Glargine (Lantus) 10 units DAILY08 SQ Last administered on 07/31/18at 09:13; Start 07/31/18 at 08:00; Stop 07/31/18 at 14:38; Status DC Insulin Glargine (Lantus) 55 units QHS SQ Last administered on 08/18/18at 21:12 ; Start 07/31/18 at 21:00 Lactobacillus Rhamnosus (Culturelle) 1 cap BID PO Last administered on at 21:11; Start 07/31/18 at 09:00 Levothyroxine Sodium (Synthroid) 50 mcg DAILY07 PO Last administered on at 06:15; Start 07/31/18 at 07:00; Stop 08/04/18 at 14:17; Status DC Al Hydroxide/Mg Hydroxide (Mylanta Plus Xs) 30 ml PRN Q2HR PRN PO HEARTBURN / GAS; Start 07/31/18 at 01:30 Insulin Glargine (Lantus) 10 units DAILY08 SQ ; Start 07/31/18 at 14:38; Stop 07/31/18 at 16:13; Status DC Ciprofloxacin (Cipro) 500 mg BID PO Last administered on 08/04/18at 07:59; Start 07/31/18 at 21:00; Stop 08/04/18 at 16:07; Status DC Insulin Human Lispro (HumaLOG) 20 units TIDAC SQ Last administered on at 12:38; Start 07/31/18 at 16:30; Stop 08/04/18 at 13:35; Status DC Insulin Glargine (Lantus) 25 units DAILY08 SQ Last administered on 08/18/18at 08 :14; Start 08/01/18 at 08:00 Nystatin (Nystop) 1 dori BID TP Last administered on 08/13/18at 07:53; Start at 21:00; Stop 08/13/18 at 20:59; Status DC Insulin Human Lispro (HumaLOG) 20 units TIDWMEALS SQ Last administered on at 17:23; Start 08/04/18 at 17:00 Levothyroxine Sodium (Synthroid) 50 mcg DAILY06 PO Last administered on at 05:37; Start 08/05/18 at 06:00 Cefpodoxime Proxetil (Vantin) 100 mg BID PO Last administered on 08/14/18at 07: 49; Start 08/04/18 at 21:00; Stop 08/14/18 at 20:59; Status DC Sertraline HCl (Zoloft) 50 mg DAILY PO Last administered on 08/18/18at 08:12; Start 08/05/18 at 09:00 Quetiapine Fumarate (SEROquel) 25 mg QHS PO Last administered on 08/08/18at 20: 05; Start 08/05/18 at 21:00; Stop 08/09/18 at 16:30; Status DC Quetiapine Fumarate (SEROquel) 50 mg QHS PO Last administered on 08/18/18at 21: 11; Start 08/09/18 at 21:00 Active Scripts Active Reported Vitamin D3 (Cholecalciferol (Vitamin D3)) 1,000 Unit Tablet 1,000 Unit PO DAILY Tylenol (Acetaminophen) 325 Mg Tablet 325 Mg PO PRN Q4HRS PRN Levothyroxine Sodium 50 Mcg Tablet 50 Mcg PO DAILYAC Robitussin Long-Acting Liq (Dextromethorphan Hbr/Chlor-Mal) 118 Ml Liquid 15 Ml PO PRN Q6HRS Novolog Flexpen (Insulin Aspart) 100 Unit/1 Ml Insuln.pen 15 Unit SQ TIDAC Neurontin (Gabapentin) 100 Mg Capsule 100 Mg PO TID Alum-Mag Hydroxide-Simeth Liq (Mag Hydrox/Al Hydrox/Simeth) 360 Ml Oral.susp 30 Ml PO PRN Q2HR PRN Lipitor (Atorvastatin Calcium) 40 Mg Tablet 40 Mg PO DAILY Levemir Flextouch (Insulin Detemir) 100 Unit/1 Ml Insuln.pen 10 Unit SQ DAILY08 Levemir Flextouch (Insulin Detemir) 100 Unit/1 Ml Insuln.pen 55 Unit SQ QHS Ibuprofen 400 Mg Tablet 400 Mg PO PRN Q4HRS PRN Benadryl (Diphenhydramine Hcl) 25 Mg Capsule 25 Mg PO PRN TID PRN Cranberry 400 Mg Capsule 400 Mg PO TID Cozaar (Losartan Potassium) 25 Mg Tablet 25 Mg PO DAILY Celexa (Citalopram Hydrobromide) 40 Mg Tablet 40 Mg PO DAILY Acidophilus (Lactobacillus Acidophilus) 1 Each Tablet 1 Each PO QID I have reviewed the current psychotropics carefully including drug interactions. Risk benefit ratio favors no change other than as noted in my dictated progress note. Diagnosis: Problems: (1) Anxiety disorder (2) Mild cognitive impairment (3) Impulse control disorder (4) Psychosis, atypical ANGEL MYLES MD Aug 18, 2018 23:21
--- NOTE | 2018-08-18 23:37 | NUR ---
Pt located in the dayroom at shift change. Pt became upset because she did not want to take a shower tonight. Pt explained the reasons and benefits as to why she needs to take a shower. Pt continues to be angry in the shower and acts helpless. After the shower, pt stated to staff that we "should all feel ashamed of ourselves." Compliant with HS medications.
--- NOTE | 2018-08-18 23:41 | PN ---
DATE: 08/17/2018 PSYCHIATRIC PROGRESS NOTE This late entry 08/17/2018 covers elements not covered in my initial note. SUBJECTIVE: I met with the patient in the evening. The patient slept 7-1/4 hours previous night, has done reasonably well during the day, alert to self and situation. REVIEW OF SYSTEMS: Ambulation impaired, in wheelchair. No CV, , pulmonary, eye, ENT system symptoms on review. MENTAL STATUS EXAM: Oriented to herself and situation. Speech is coherent, abstraction fair, computation impaired, language function intact, attention span short. Mood and affect appears improved, less anxious. LABORATORY DATA: Reviewed. IMPRESSION: Major neurocognitive disorder, early Alzheimer, vascular with delusion, depression; anxiety disorder, unspecified; impulse control disorder, unspecified. Rest unchanged. PLAN: No change from initial note. Social service staff arranging transition back to nursing facility this week. MAN Viry MYLES MD DR: ARIANA/manjit JOB#: [id number] / [id number]
[2018-08-19] MEDS: LEVOTHYROXINE 50 MCG TABLET PO SCH (05:59)
[2018-08-19 06:00] VITALS: BP 110/71
[2018-08-19] MEDS: GABAPENTIN 100 MG CAPSULE. PO SCH ×3 (08:08→19:38)
[2018-08-19] MEDS: LOSARTAN 25 MG TABLET. PO SCH (08:08)
[2018-08-19] MEDS: CHOLECALCIFEROL (VITAMIN D3) 1,000 UNIT TABLET PO SCH (08:08)
[2018-08-19] MEDS: LACTOBACILLUS RHAMNOSUS GG 1 CAPSULE. PO SCH ×2 (08:08→19:38)
[2018-08-19] MEDS: SERTRALINE 50 MG TABLET. PO SCH (08:09)
[2018-08-19] MEDS: INSULIN LISPRO 300 UNITS/3 ML INSULN.PEN. SQ SCH ×3 (08:10→17:22)
[2018-08-19] MEDS: INSULIN GLARGINE 300 UNITS/3 ML INSULN.PEN. SQ SCH ×2 (08:11→19:51)
--- NOTE | 2018-08-19 08:35 | NUR ---
Behavior Intervention Response and Plan: BIRP Note: Behavior: Assumed Care of patient, patient located in Day Room at shift change. Patient exhibited the following behavior Interactive, Disorganized, Compulsive. Brief assessment on rounds of vital signs, medication needs, lab studies, and pain. Treatment plan problems 1 & 2. Intervention: Patient assessed and the following interventions initiated safety checks 15 Minute Checks Cognitive Assessment , Head to toe Assessment , Medications. Response: After interactions and interventions patient responded in the following manner, Calm , Disorganized ,Compliant. Continue to assess behaviors and condition will continue to monitor throughout the shift as needed. Patient educated on ADL's, and hand hygiene. 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 Continue to assess patient for changes in above assessment. Monitor for medication needs, pain, and safety concerns. Hourly rounding performed to ensure safe environment.
--- NOTE | 2018-08-19 08:56 | NUR ---
WEEKLY ACTIVITY THERAPY NOTE Date of Admission: 07/30/2018 Date of AT Assessment: 08/03/2018 Goal aimed: to increase leisure awareness and socialization Initial goal: Pt. will participate in at least three groups, fully, per week. Weekly progress towards goal: did not achieve Group participation level: minimal Behaviors observed: Pt. tends to sleep through afternoon groups; Pt. prefers cognitive stimulation and trivia groups; Pt. is generally friendly and compliant with staff Plan: no change to goal
--- NOTE | 2018-08-19 10:00 | NUR ---
WEEKLY NOTE: Pt continues to appear drowsy; however, to sit down in the dayroom during groups and other parts of the day. Pt will look towards discharging back to [facility] tomorrow. SW will contact the facility and pt son to finalize discharge arrangements.
[2018-08-19 16:04] VITALS: BP 126/91
--- NOTE | 2018-08-19 16:40 | NUR ---
SW returned call to pt son and gave him an update on tx team. Pt will look at discharge back to [facility] tomorrow. Time has yet to be determined and BLAIR will follow up with all parties once transportation has been arranged.
[2018-08-19] MEDS: ATORVASTATIN CALCIUM 20 MG TABLET PO SCH (19:38)
[2018-08-19] MEDS: QUEtiapine 50 MG TABLET. PO SCH (19:38)
[2018-08-20] MEDS ORDERED: ACET325T9 PO (01:38)
[2018-08-20] MEDS ORDERED: QUET50TA PO (01:39)
[2018-08-20] MEDS ORDERED: MAGN2400 PO (01:39)
[2018-08-20] MEDS ORDERED: SERT50TA PO (01:39)
--- NOTE | 2018-08-20 02:33 | NUR ---
Behavior Intervention Response and Plan: BIRP Note: Behavior: Assumed Care of patient, patient located in Day Room at shift change. Patient exhibited the following behavior Calm, Cooperative, Social. Brief assessment on rounds of vital signs, medication needs, lab studies, and pain. Treatment plan problems 1 and 2. Intervention: Patient assessed and the following interventions initiated safety checks 15 Minute Checks Cognitive Assessment , Head to toe Assessment , Medications. Response: After interactions and interventions patient responded in the following manner, Calm , Compliant ,Cooperative. Continue to assess behaviors and condition will continue to monitor throughout the shift as needed. Patient educated on ADL's, and hand hygiene. Plan: Continue to monitor Master Treatment Plan for patient's progress toward short term goals of Decreased Agitation, Decreased Aggression, retirement goals to return to previous living setting vs placement. Continue to assess patient for changes in above assessment. Monitor for medication needs, pain, and safety concerns. Hourly rounding performed to ensure safe environment.
[2018-08-20] MEDS: LEVOTHYROXINE 50 MCG TABLET PO SCH (06:00)
[2018-08-20 06:27] VITALS: BP 93/55
[2018-08-20 08:40] VITALS: BP 146/77
[2018-08-20] MEDS: GABAPENTIN 100 MG CAPSULE. PO SCH ×2 (08:50→13:26)
[2018-08-20] MEDS: CHOLECALCIFEROL (VITAMIN D3) 1,000 UNIT TABLET PO SCH (08:50)
[2018-08-20] MEDS: LACTOBACILLUS RHAMNOSUS GG 1 CAPSULE. PO SCH (08:50)
[2018-08-20] MEDS: SERTRALINE 50 MG TABLET. PO SCH (08:50)
[2018-08-20 08:51] VITALS: BP 146/77
[2018-08-20] MEDS: LOSARTAN 25 MG TABLET. PO SCH (08:51)
[2018-08-20] MEDS: INSULIN GLARGINE 300 UNITS/3 ML INSULN.PEN. SQ SCH (08:52)
[2018-08-20] MEDS: INSULIN LISPRO 300 UNITS/3 ML INSULN.PEN. SQ SCH ×2 (08:54→12:15)
--- NOTE | 2018-08-20 09:00 | NUR ---
Behavior Intervention Response and Plan: BIRP Note: Behavior: Assumed Care of patient, patient located in Day Room at shift change. Patient exhibited the following behavior Interactive, Disorganized, Compulsive. Brief assessment on rounds of vital signs, medication needs, lab studies, and pain. Treatment plan problems 1 & 2. Intervention: Patient assessed and the following interventions initiated safety checks 15 Minute Checks Cognitive Assessment , Head to toe Assessment , Medications. Response: After interactions and interventions patient responded in the following manner, Calm , Appropriate ,Compliant. Continue to assess behaviors and condition will continue to monitor throughout the shift as needed. Patient educated on ADL's, and hand hygiene. 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 Continue to assess patient for changes in above assessment. Monitor for medication needs, pain, and safety concerns. Hourly rounding performed to ensure safe environment.
--- NOTE | 2018-08-20 11:42 | NUR ---
[facility] Social Work Discharge Planning Form Patient Name LATRELL VALLEJO Admit Date: 07/30/18 DISCHARGE PLAN Discharge Destination: [facility] Care Assessment: N/A Level II Assessment: N/A Transportation: Placement to pick pt up this afternoon. Special Instructions/Notes: Please fax discharge orders and medications list to [facility] at the number listed below. DISCHARGE TO FACILITY Facility: [facility] Address: [address] [place] [address] Contact Name: Portia (Admissions): or Contact Name: Ask for the charge nurse PCP: Dr. Villeda
--- NOTE | 2018-08-20 14:30 | NUR ---
Transition Record was faxed to follow-up provider with the following elements: Reason for admission, procedures, tests, principal diagnosis, pending studies, patient instructions, 04/05 contact information for unit, phone number to obtain pending test results, plan for follow-up care, physician follow-up, advanced directive information, and medication list with dose, duration and instructions. This information was included in the following documents: History and physical, lab results, study results, progress notes, social work planning form, DC instruction form, patient visit summary, and medication reconciliation form. Date & time record faxed: 11:40 20 August 2018 Record faxed to: [facility] Dr. Short Record discussed with/ report given to: ADIN Briggs at [facility]
--- NOTE | 2018-08-20 18:14 | DS ---
DATE OF DISCHARGE: 08/20/2018 This note covers elements not covered in my initial note 08/20/2018. REASON FOR ADMISSION: Please refer to the admission history for details. Briefly, the patient is a 73-year-old female referred to us from [facility] on account of sexualized behaviors. She was grabbing people's butts, refusing cares, using racial slurs at residents and staff, yelling, smearing, and throwing her bowel movement, scratching and hitting staff. She has appeared more confused, anxious, restless, with marked mood lability. She had failed outpatient psychiatric interventions resulting in this referral. SIGNIFICANT FINDINGS AND CLINICAL COURSE: Following admission, the patient was seen daily individually by myself from a psychiatric standpoint, medical followup with Dr. Gonzalez/Dr. Fontaine. She was quite anxious, restless, agitated, somewhat sexually inappropriate. Adjustments were made in her psychotropics. She seemed to respond to a combination of Zoloft 50 mg a day, Seroquel 50 mg at bedtime. She did have a UTI, which was treated, which would have helped as well. REVIEW OF SYSTEMS: Prior to discharge, 08/20/2018, ambulation impaired, in wheelchair. No CV, , pulmonary, eye, ENT system symptoms on review. MENTAL STATUS EXAM: Oriented to herself, situation. Speech coherent, has some latency. Abstraction fair, computation impaired, language function intact, attention span short. Mood and affect was improved. No suicidal or homicidal ideation at discharge and no inappropriate sexual behaviors noted. FINAL DIAGNOSES: Major neurocognitive disorder, early Alzheimer, vascular with delusions, depression, anxiety disorder, unspecified; impulse control disorder, unspecified; major depressive disorder, recurrent with history of psychotic features. Rest unchanged from admission. DISCHARGE MEDICATIONS: Please refer to the MRAD. DISCHARGE INSTRUCTIONS: Outpatient psychiatric and medical followup at the [facility]. ANGEL MYLES MD DR: ARIANA/manjit JOB#: [id number] / [id number]
--- NOTE | 2018-08-20 18:32 | PDOC ---
Exam Note: Francisco Note: Please also refer to the separate dictated note~for this date of service dictated separately.~Patient seen individually. Discussed the patient with Nursing staff reviewed the chart.~Reviewed interim history and current functioning. Reviewed vital signs,~Labs/ Radiology~and current medications noted below. Continue current treatment with the changes noted in the dictated addendum note Assessment: Vital Signs: Vital Signs Date Time Temp Pulse Resp B/P (MAP) Pulse Ox O2 Delivery O2 Flow Rate FiO2 08/20/18 08:51 70 146/77 08/20/18 06:27 98.2 22 94 Room Air I&O Intake and Output 08/20/18 07:00 Intake Total 1560 ml Balance 1560 ml Intake Oral 1560 ml # Voids 1 # Bowel Movements 1 Labs: Laboratory Tests Test 08/19/18 19:29 08/20/18 07:11 08/20/18 11:42 Glucose (Fingerstick) 163 mg/dL (70-99) H 136 mg/dL (70-99) H 142 mg/dL (70-99) H Current Medications: Meds: Current Medications Doxycycline Hyclate (Vibra-Tab) 100 mg 1X ONCE PO Last administered on at 20:15; Start 07/30/18 at 20:15; Stop 07/30/18 at 20:16; Status DC Acetaminophen (Tylenol) 650 mg PRN Q6HRS PRN PO PAIN / TEMP Last administered on 08/15/18at 06:08; Start 07/30/18 at 22:00; Stop 08/20/18 at 14:37; Status DC Al Hydroxide/Mg Hydroxide (Mylanta Plus Xs) 15 ml PRN AFTMEALHC PRN PO DYSPEPSIA; Start 07/30/18 at 22:00; Status Cancel Magnesium Hydroxide (Milk Of Magnesia) 2,400 mg PRN QHS PRN PO CONSTIPATION; Start 07/30/18 at 22:00; Stop 08/20/18 at 14:37; Status DC Influenza Virus Vaccine (Afluria Trivalent Syringe) 0.5 ml ONCE ONCE VAX IM ; Start 07/30/18 at 22:30; Stop 07/30/18 at 22:41; Status DC Influenza Virus Vaccine (Afluria Trivalent Syringe) 0.5 ml ONCE ONCE VAX IM ; Start 07/31/18 at 09:00; Stop 07/31/18 at 09:01; Status DC Citalopram Hydrobromide (CeleXA) 40 mg DAILY PO Last administered on at 08:00; Start 07/31/18 at 09:00; Stop 08/04/18 at 16:58; Status DC Acetaminophen (Tylenol) 325 mg PRN Q4HRS PRN PO PAIN; Start 07/31/18 at 01:30 ; Stop 08/20/18 at 14:37; Status DC Vitamin D (Vitamin D3) 1,000 unit DAILY PO Last administered on 08/20/18at 08:50 ; Start 07/31/18 at 09:00; Stop 08/20/18 at 14:37; Status DC Diphenhydramine HCl (Benadryl) 25 mg PRN TID PRN PO ALLERGIES; Start 07/31/18 at 01:30; Stop 08/20/18 at 14:37; Status DC Gabapentin (Neurontin) 100 mg TID PO Last administered on 08/20/18at 13:26; Start 07/31/18 at 09:00; Stop 08/20/18 at 14:37; Status DC Ibuprofen (Motrin) 400 mg PRN Q4HRS PRN PO PAIN Last administered on at 09:26; Start 07/31/18 at 01:30; Stop 07/31/18 at 16:11; Status DC Losartan Potassium (Cozaar) 25 mg DAILY PO Last administered on 08/20/18at 08:51 ; Start 07/31/18 at 09:00; Stop 08/20/18 at 14:37; Status DC Atorvastatin Calcium (Lipitor) 40 mg HS PO Last administered on 08/19/18at 19:38 ; Start 07/31/18 at 21:00; Stop 08/20/18 at 14:37; Status DC Non-Formulary Medication (Cranberry ) 400 mg TID PO ; Start 07/31/18 at 09:00; Status UNV Guaifenesin (Robitussin Dm) 15 ml PRN Q6HRS PRN PO COUGH; Start 07/31/18 at 07 :30; Stop 08/20/18 at 14:37; Status DC Insulin Human Lispro (HumaLOG) 15 units TIDAC SQ Last administered on at 11:30; Start 07/31/18 at 07:30; Stop 07/31/18 at 16:13; Status DC Insulin Glargine (Lantus) 10 units DAILY08 SQ Last administered on 07/31/18at 09:13; Start 07/31/18 at 08:00; Stop 07/31/18 at 14:38; Status DC Insulin Glargine (Lantus) 55 units QHS SQ Last administered on 08/19/18at 19:51 ; Start 07/31/18 at 21:00; Stop 08/20/18 at 14:37; Status DC Lactobacillus Rhamnosus (Culturelle) 1 cap BID PO Last administered on at 08:50; Start 07/31/18 at 09:00; Stop 08/20/18 at 14:37; Status DC Levothyroxine Sodium (Synthroid) 50 mcg DAILY07 PO Last administered on at 06:15; Start 07/31/18 at 07:00; Stop 08/04/18 at 14:17; Status DC Al Hydroxide/Mg Hydroxide (Mylanta Plus Xs) 30 ml PRN Q2HR PRN PO HEARTBURN / GAS; Start 07/31/18 at 01:30; Stop 08/20/18 at 14:37; Status DC Insulin Glargine (Lantus) 10 units DAILY08 SQ ; Start 07/31/18 at 14:38; Stop 07/31/18 at 16:13; Status DC Ciprofloxacin (Cipro) 500 mg BID PO Last administered on 08/04/18at 07:59; Start 07/31/18 at 21:00; Stop 08/04/18 at 16:07; Status DC Insulin Human Lispro (HumaLOG) 20 units TIDAC SQ Last administered on at 12:38; Start 07/31/18 at 16:30; Stop 08/04/18 at 13:35; Status DC Insulin Glargine (Lantus) 25 units DAILY08 SQ Last administered on 08/20/18at 08 :52; Start 08/01/18 at 08:00; Stop 08/20/18 at 14:37; Status DC Nystatin (Nystop) 1 dori BID TP Last administered on 08/13/18at 07:53; Start at 21:00; Stop 08/13/18 at 20:59; Status DC Insulin Human Lispro (HumaLOG) 20 units TIDWMEALS SQ Last administered on at 12:15; Start 08/04/18 at 17:00; Stop 08/20/18 at 14:37; Status DC Levothyroxine Sodium (Synthroid) 50 mcg DAILY06 PO Last administered on at 06:00; Start 08/05/18 at 06:00; Stop 08/20/18 at 14:37; Status DC Cefpodoxime Proxetil (Vantin) 100 mg BID PO Last administered on 08/14/18at 07: 49; Start 08/04/18 at 21:00; Stop 08/14/18 at 20:59; Status DC Sertraline HCl (Zoloft) 50 mg DAILY PO Last administered on 08/20/18at 08:50; Start 08/05/18 at 09:00; Stop 08/20/18 at 14:37; Status DC Quetiapine Fumarate (SEROquel) 25 mg QHS PO Last administered on 08/08/18at 20: 05; Start 08/05/18 at 21:00; Stop 08/09/18 at 16:30; Status DC Quetiapine Fumarate (SEROquel) 50 mg QHS PO Last administered on 08/19/18at 19: 38; Start 08/09/18 at 21:00; Stop 08/20/18 at 14:37; Status DC Active Scripts Active Reported Zoloft (Sertraline Hcl) 50 Mg Tablet 50 Mg PO DAILY Quetiapine Fumarate 50 Mg Tablet 50 Mg PO HS Milk Of Magnesia (Magnesium Hydroxide) 2,400 Mg/10 Ml Oral.susp 2,400 Mg PO PRN QHS PRN Tylenol (Acetaminophen) 325 Mg Tablet 650 Mg PO PRN Q6HRS PRN Vitamin D3 (Cholecalciferol (Vitamin D3)) 1,000 Unit Tablet 1,000 Unit PO DAILY Tylenol (Acetaminophen) 325 Mg Tablet 325 Mg PO PRN Q4HRS PRN Levothyroxine Sodium 50 Mcg Tablet 50 Mcg PO DAILYAC Robitussin Long-Acting Liq (Dextromethorphan Hbr/Chlor-Mal) 118 Ml Liquid 15 Ml PO PRN Q6HRS Novolog Flexpen (Insulin Aspart) 100 Unit/1 Ml Insuln.pen 20 Unit SQ TIDAC Neurontin (Gabapentin) 100 Mg Capsule 100 Mg PO TID Alum-Mag Hydroxide-Simeth Liq (Mag Hydrox/Al Hydrox/Simeth) 360 Ml Oral.susp 30 Ml PO PRN Q2HR PRN Lipitor (Atorvastatin Calcium) 40 Mg Tablet 40 Mg PO HS Levemir Flextouch (Insulin Detemir) 100 Unit/1 Ml Insuln.pen 25 Unit SQ DAILY08 Levemir Flextouch (Insulin Detemir) 100 Unit/1 Ml Insuln.pen 55 Unit SQ QHS Benadryl (Diphenhydramine Hcl) 25 Mg Capsule 25 Mg PO PRN TID PRN Cozaar (Losartan Potassium) 25 Mg Tablet 25 Mg PO DAILY Acidophilus (Lactobacillus Acidophilus) 1 Each Tablet 1 Each PO QID I have reviewed the current psychotropics carefully including drug interactions. Risk benefit ratio favors no change other than as noted in my dictated progress note. Diagnosis: Problems: (1) Major depressive disorder, recurrent episode (2) Psychosis, atypical (3) Impulse control disorder (4) Mild cognitive impairment (5) Anxiety disorder ANGEL MYLES MD Aug 20, 2018 18:32
--- NOTE | 2018-08-20 20:43 | PN ---
DATE: 08/18/2018 PSYCHIATRIC PROGRESS NOTE This late entry 08/18/2018 covers elements not covered in my initial note. SUBJECTIVE: I met with the patient in the evening. Overall, the patient slept 9 hours previous night. She has had no sexually inappropriate behaviors. REVIEW OF SYSTEMS: Ambulation impaired, in wheelchair. No CV, , pulmonary, eye, ENT system symptoms on review. MENTAL STATUS EXAM: Oriented to herself and situation. Speech has some latency, coherent. Abstraction fair, computation impaired, language function intact, attention span short. Mood and affect less withdrawn. LABORATORY DATA: Reviewed. IMPRESSION: Unchanged from initial note. PLAN: No change from initial note with tentative discharge for 08/20/2018. MAN Viry MYLES MD DR: ARIANA/manjit JOB#: [id number] / [id number]
--- NOTE | 2018-08-20 20:48 | PN ---
DATE: 08/19/2018 PSYCHIATRIC PROGRESS NOTE This late entry 08/19/2018 covers elements not covered in my initial note. SUBJECTIVE: I met with the patient in the evening and staffed at a treatment team meeting with the entire team in the morning. The patient has had no sexually inappropriate behaviors, more compliant. REVIEW OF SYSTEMS: Ambulation impaired, in wheelchair. No CV, , pulmonary, eye, ENT system symptoms on review. MENTAL STATUS EXAM: Oriented to herself and situation. Speech is coherent, some latency. Abstraction fair, computation impaired, language function intact, attention span short. Mood and affect showing some improvement. LABORATORY DATA: Reviewed. IMPRESSION: Unchanged from initial note. PLAN: No change from initial note with discharge on 08/20/2018. MAN Viry MYLES MD DR: ARIANA/manjit JOB#: [id number] / [id number]
== END 2018-08-20 14:35 | DRG 57 ==
LOC: ER 18:26 → GEROPSY 21:21
PROVIDERS: ADMIT Psychiatry & Neurology Psychiatry; ATTEND Psychiatry & Neurology Psychiatry
DX: G30.0 Alzheimer's disease with early onset (principal); Z68.42 Body mass index [BMI] 45.0-49.9, adult; F01.51 Vascular dementia, unspecified severity, with behavioral disturbance; F05 Delirium due to known physiological condition; F02.81 Dementia in other diseases classified elsewhere, unspecified severity, with behavioral disturbance; N39.0 Urinary tract infection, site not specified; F25.0 Schizoaffective disorder, bipolar type; E11.22 Type 2 diabetes mellitus with diabetic chronic kidney disease; E03.9 Hypothyroidism, unspecified; E66.01 Morbid (severe) obesity due to excess calories; E11.42 Type 2 diabetes mellitus with diabetic polyneuropathy; E78.5 Hyperlipidemia, unspecified; F41.9 Anxiety disorder, unspecified; F63.9 Impulse disorder, unspecified; I12.9 Hypertensive chronic kidney disease with stage 1 through stage 4 chronic kidney disease, or unspecified chronic kidney disease; N18.9 Chronic kidney disease, unspecified; Z79.899 Other long term (current) drug therapy; Z81.1 Family history of alcohol abuse and dependence; Z81.8 Family history of other mental and behavioral disorders; Z82.3 Family history of stroke; Z87.440 Personal history of urinary (tract) infections; Z90.710 Acquired absence of both cervix and uterus; Z23 Encounter for immunization
CPT/HCPCS: 36415; 80053; 80061; 81001; 82306; 82607; 82947; 83036; 83540; 83550; 83735; 84436; 84443; 84480; 85025; 86592; 87086; 87186; 93005; J1815; 99285-25